=== PATIENT | female | born 1935 | race Caucasian/White ===

== ENCOUNTER 2021-08-07 12:47 | Outpatient (REF) | payer MEDICARE, SELFPAY ==
--- NOTE | ~2021-08-07 | CT_ITS ---
EXAMINATION: CT ABDOMEN AND PELVIS WITH CONTRAST CLINICAL INFORMATION: Right lower quadrant pain. Rule out diverticulitis. COMPARISON: None TECHNIQUE: Multidetector volumetric images were obtained from the superior aspect of the liver through the pubic symphysis following administration 85 mL of Omnipaque 350 intravenous contrast. Sagittal and coronal reformatted images were obtained on the technologist's workstation. Oral contrast: Yes This CT examination was performed using dose optimization techniques as appropriate, variously including the following: *Automated exposure control *Adjustment of mA and/or kV according to patient size (this includes techniques or standardized protocols for targeted exams where dose is matched to indication/reason for exam; i.e. extremities or head) *Use of iterative reconstruction technique DLP: 234 mGy-cm FINDINGS: LUNG BASES: There are 2 calcified peripheral or subpleural pulmonary nodules measuring 6 mm in the lingula and 5 mm in the left lower lobe.. LIVER, GALLBLADDER, AND BILIARY TREE: The liver is normal in size, shape and attenuation. There are several small calcifications in the liver. There is a 7 mm cyst in the medial segment of the left lobe of the liver. There is a gallstone in the gallbladder. The gallbladder is otherwise normal. There is no biliary duct dilatation. PANCREAS: Unremarkable. SPLEEN: There is a small calcification in the spleen. ADRENAL GLANDS: Unremarkable. KIDNEYS AND URETERS: The left kidney is smaller than the right. There are areas of left renal cortical thinning or scarring. There is a duplicated right renal collecting system. BLADDER: Unremarkable. GASTROINTESTINAL TRACT: There is diverticulosis of the colon. No evidence of diverticulitis is seen. The appendix is normal. The stomach is normal. ABDOMINAL WALL: No significant hernia is appreciated. LYMPH NODES: Normal. VASCULAR: Unremarkable. PELVIC VISCERA: The uterus appears to have been removed. No pelvic mass is seen. OSSEOUS STRUCTURES: There is degenerative changes of the spine and scoliosis. There are degenerative changes at the hip joints. CT/CT abdomen pelvis w con IMPRESSION: Diverticulosis. No evidence of diverticulitis. Gallstone. Small calcifications in the liver and spleen and small calcified left lung nodules probably related to old granulomatous disease. Small left kidney with areas of cortical thinning or scarring.
[2021-08-07] MEDS: Barium Sulfate Oral (Berry) 450 ML ORAL.SUSP 900 ML PO (15:00)
[2021-08-07] MEDS: iohexoL 350 MG/ML 100 ML INFUS..BTL 85 ML IV (15:20)
== END 2021-08-07 12:48 | disposition home or self-care (01) ==
LOC: HO.CT 12:47
PROVIDERS: PCP Internal Medicine; Visit Provider Internal Medicine
DX: R10.31 Right lower quadrant pain (principal)
CPT/HCPCS: 74177; Q9967

== ENCOUNTER 2021-10-02 10:34 | Outpatient (REF) | payer MEDICARE, SELFPAY ==
--- NOTE | ~2021-10-02 | CT_ITS ---
EXAMINATION: CT CHEST WITH CONTRAST CLINICAL INFORMATION: Abnormal findings of the lung. COMPARISON: Abdominal CT 08/07/2021. TECHNIQUE: Multidetector volumetric CT imaging of the chest was obtained after the administration of 65 mL of Omnipaque 350 intravenous contrast without immediate adverse reactions. Axial MIP volume rendering provided. Sagittal and coronal reformatted images were obtained. This CT examination was performed using dose optimization techniques as appropriate, variously including the following: *Automated exposure control *Adjustment of mA and/or kV according to patient size (this includes techniques or standardized protocols for targeted exams where dose is matched to indication/reason for exam; i.e. extremities or head) *Use of iterative reconstruction technique DLP: 85 mGy-cm FINDINGS: ENTRY LEVEL MECHANICAL ENGINEER: Tortuous aorta. LUNGS: The central airways are patent. Calcified and noncalcified pleural plaques are identified. This corresponds with the calcified pulmonary nodules seen on prior abdominal CT. No suspicious parenchymal nodules. No pleural effusion. No pneumothorax. MEDIASTINUM: Normal heart size. No pericardial effusion. No mediastinal lymphadenopathy. AXILLA: No lymphadenopathy. UPPER ABDOMEN: Distended gallbladder with stone in the fundus. Splenic calcification. OSSEOUS STRUCTURES: No acute or suspicious osseous abnormality. Degenerative changes throughout the spine. Moderate compression deformity involving the T4 vertebral body, appearing chronic. 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 This corresponds to the calcified nodule seen on previous abdominal CT. No suspicious parenchymal nodules.
[2021-10-02] MEDS: iohexoL 350 MG/ML 100 ML INFUS..BTL IV (11:55)
== END 2021-10-02 10:35 | disposition home or self-care (01) ==
LOC: HO.CT 10:34
PROVIDERS: Visit Provider Internal Medicine
DX: R91.8 Other nonspecific abnormal finding of lung field (principal)
CPT/HCPCS: 71260; Q9967

== ENCOUNTER 2021-10-07 10:07 | Outpatient (REF) | payer MEDICARE, SELFPAY ==
--- NOTE | ~2021-10-07 | MR_ITS ---
EXAMINATION: MR LUMBAR SPINE WITHOUT CONTRAST CLINICAL INFORMATION: 85-year-old with lumbar radiculopathy of more than 6 weeks duration. COMPARISON: 09/14/2012 MRI. TECHNIQUE: MRI of the lumbar spine was obtained using routine sequences without contrast. FINDINGS: CORONAL ALIGNMENT: Mild upper lumbar dextrocurvature noted with slight [id number] lateral listhesis at L3-L4, more prominent on current exam with partially imaged lower thoracic levocurvature on current study. SAGITTAL ALIGNMENT: 3 mm of grade 1 degenerative spondylolisthesis noted at L4-L5 and L3-L4 slightly progressed from previous study. Trace retrolisthesis at L2-L3 is a new finding. LUMBOSACRAL JUNCTION: Normal. VERTEBRAL BODIES: There is slight chronic loss of height of the posterior aspect of the L3 vertebral body which has developed since previous exam. Remaining vertebral body heights are well maintained stable in appearance. DISC SPACES AND ENDPLATES: Severe disc space height loss, disc desiccation and Schmorl's nodes at L5-S1 is stable. Moderate spondylosis at this level similar to previous exam. Tnnj-[id number] disc space height loss at L4-L5 minimally progressed with intradiscal degenerative signal changes similar to previous study. Mild spondylosis at this level is similar. Severe disc space height loss at L3-L4 with Schmorl's nodes has progressed from previous study with progression of intradiscal degenerative signal changes, Schmorl's nodes and spondylosis. Severe disc space height loss asymmetric to the left at L2-L3 has developed since previous exam, with Schmorl's nodes, intradiscal degenerative signal changes and spondylosis. SPINAL CANAL: Mildly prominent epidural fat in the mid to lower lumbar canal is more apparent on current study. BONE MARROW: Multilevel degenerative endplate changes between L2-L3 and L5-S1 inclusive progressed from previous exam, now with type I marrow signal changes at these levels. CONUS MEDULLARIS: Terminates at L1. Morphology and signal is normal. INTRADURAL NERVE ROOTS: Crowding of the intradural nerve roots at L3-L4, L4-L5 and L5-S1 progressed from previous exam, consistent with progression of spinal stenosis. L5-S1: Concentric disc osteophyte complex consisting of disc bulge and endplate spurring again noted. Ligamentum flavum thickening is progressed from previous exam with stable moderate bilateral facet arthrosis. Small central disc herniation has developed at this level since previous exam. Flattening of the dural sac centrally is progressed and flattening of the dorsal dural sac has also progressed. Moderate to severe central spinal canal stenosis is noted. There is suspicion for a 3 mm synovial cyst along the medial aspect of the right facet joint on the current study. There is bilateral subarticular recess stenosis similar to the previous exam and there is mild lateral recess stenosis bilaterally unchanged in appearance. There is moderate to severe bilateral neural foraminal stenosis, stable on the left and progressed on the right, with encroachment on the exiting L5 nerve roots bilaterally on current study. L4-L5: Unroofing of the posterior disc margin is noted, with superimposed disc bulging progressed from previous study. There is flattening of the dural sac progressed from previous exam. Ligamentum flavum thickening has progressed and there is moderate to severe facet arthropathy, left more than right similar to prior exam. Prominent dorsal epidural fat pad on current exam. Moderate to severe central spinal canal stenosis progressed from previous exam with severe right-sided and moderate to severe left-sided subarticular recess stenosis also progressed. Mild foraminal narrowing is noted bilaterally without exiting nerve root impingement. L3-L4: [id number] progression of spondylolisthesis, with unroofing of the posterior disc margin. Superimposed disc bulging with posterolateral disc osteophyte complex bilaterally and severe bilateral facet arthropathy with marked ligamentum flavum thickening progressed from previous study. Moderate to severe spinal canal stenosis is progressed with crowding of the intradural nerve roots, with bilateral subarticular recess stenosis, right more than left progressed from previous exam and left lateral recess stenosis also progressed. Moderate bilateral neural foraminal stenosis is progressed without neural impingement. L2-L3: Disc bulging has progressed with mild flattening of the dural sac with ligamentum flavum thickening progressed from previous exam. Moderate bilateral facet arthropathy is progressed. Mild central spinal canal stenosis noted on current study is a new finding. Mild left-sided neural foraminal stenosis is noted on current study. L1-L2: No disc bulge or herniation and no significant canal or neural foraminal stenosis. Mild facet arthropathy noted. PARASPINAL/RETROPERITONEAL: There is moderate to marked generalized diffuse posterior paraspinal and psoas muscle volume loss bilaterally. Otherwise the paravertebral soft tissues appear unremarkable. MR/MR lumbar spine wo con IMPRESSION: 1. Thoracolumbar scoliotic deformity progressed from previous exam with progression of grade 1 degenerative spondylolisthesis at L3-L4 and L4-L5 and development of mild retrolisthesis at L2-L3. 2. Progression of multilevel discogenic degenerative changes between L2-L3 and L5-S1 inclusive with multilevel spondylosis as described above. There is multilevel disc bulging and disc osteophyte complexes with multilevel ligamentum flavum thickening and interspinous ligament degeneration with progression as described above. 3. Multilevel spinal canal stenosis between L3-L4 and L5-S1 inclusive, moderate to severe in degree progressed from previous study with progressive crowding of the lateral canal and central canal. 4. Multilevel bilateral neural foraminal stenosis, most apparent at L5-S1, progressed on the right. Moderate bilateral neural foraminal stenosis is progressed at L3-L4 and there is new mild left-sided neural foraminal stenosis at L2-L3.
== END 2021-10-07 10:08 | disposition home or self-care (01) ==
LOC: HO.MRI 10:07
PROVIDERS: Visit Provider Internal Medicine
DX: M54.16 Radiculopathy, lumbar region (principal)
CPT/HCPCS: 72148

== ENCOUNTER → 2023-07-21 08:59 | Outpatient (REF) | payer MEDICARE, SELFPAY ==
--- NOTE | 2023-07-21 09:02 | CA_ITS ---
Transthoracic Echocardiogram Patient (Last, First, Middle): Susie Escobedo A Gender: Female Date of : 1935 Age: 87 Procedure Date: 07/21/2023 Procedure Type: Transthoracic Echocardiogram Location: OP Height: 149.86 cm Weight: 45.36 kg BSA: 1.37 m2 Heart Rate: bpm BP: 140 / 60 mmHg Ore Feeder: TO Referring MD: Hakan Dewitt MD Symptoms: R06.09 BENITEZ I10 HTN Study Quality: Fair ECG Rhythm: Sinus Conclusions: - The left ventricular systolic function is normal. The calculated ejection fraction is 66% by biplane method. - No obvious valvular pathology seen on this study. Findings Left Ventricle Normal left ventricular cavity size. There is normal left ventricular wall thickness. The left ventricular systolic function is normal. The calculated ejection fraction is 66% by biplane method. There is no evidence of regional wall motion abnormalities. Diastolic function is normal for age. Right Ventricle Normal right ventricular cavity size and systolic function. Atria Both atria are normal in size. Aortic Valve There is a normal trileaflet aortic valve. There is no aortic valve stenosis. There is trace (trivial) aortic valve regurgitation. Mitral Valve The mitral valve appears normal. There is trace mitral valve regurgitation. There is no mitral valve stenosis. Pulmonic Valve The pulmonic valve is likely normal. Tricuspid Valve Normal tricuspid valve structure. There is mild tricuspid valve regurgitation. There is no evidence of pulmonary hypertension. Great Vessels The asc aorta is normal in size. Venous The inferior vena cava is normal in size and collapses less than 50% with inspiration. Pericardium/Pleural There is no evidence of pericardial effusion. Prior Study Comparison No prior study available for comparison. Recommendations, Care & Conclusions No obvious valvular pathology seen on this study. Measurements 2D Linear Measurements IVSd: 0.97 0.6-0.9/0.6-1.0 cm LVIDd: 4.15 3.9-5.3/4.2-5.9 cm LVIDd Index: 3.03 2.4-3.2/2.2-3.1 cm/m2 LVIDs: 2.68 2.0-3.6 cm LVPWd: 0.75 0.7-1.1 cm LA Diam: 2.90 2.7-3.8/3.0-4.0 cm LAIDs Index: 2.12 1.5-2.3 cm/m2 LV Mass: 135.59 67-162/88-224 g LV Mass Index: 98.97 43-95/49-115 g/m2 LVOT Diam: 1.90 3.0+(-)1.3 cm 2D Systolic Function EF 4C: 65.80 >55% EF 2C: 66.90 >55% EF BiP: 66.10 >55% Mitral Valve MV Pk E: 0.61 MV PK A: 0.90 MV Decel Time: 276.00 E/A: 0.70 E'Lateral: 8.49 E'Medial: 4.68 E/E' Med: 13.00 E/E' Lat: 7.20 PHT: 81.00 MVA PHT: 2.72 Decel [place]: 2.21 Aortic Valve AoV Pk Scott: 1.09 AoV Mn Scott: 0.71 AoV VTI: 0.23 AoV Pk Grad: 5.00 Aov Mn Grad: 2.00 SHAVONNE Cont.VTI: 2.40 LVOT LVOT Pk Scott: 0.80 LVOT Mn Scott: 0.51 LVOT VTI: 0.19 LVOT Pk Grad: 3.00 LVOT Mn Grad: 1.00 LVOT Diam: 1.90 LVOT Area: 2.84 Diastolic Function MV Pk E: 0.61 MV Pk A: 0.90 E/A: 0.70 E'Medial: 4.68 E/E' Med: 13.00 E' Laterial: 8.49 E/E' Lat: 7.20 Right Ventricle TAPSE (mm): 21.90 TVS' Scott: 10.70 Tricuspid Valve TR Pk Scott: 2.23 TR Pk Grad: 20.00 RA Press: 3.00 RVSP: 23.00 Great Vessels Aorta Sinus of Valsalva: 2.73 2.0-3.5 cm Ao Asc: 2.90 2.1-3.4 cm Updated in Other Vendor System with Status of Final Gerber Lester MD electronically signed on 07/22/2023 5:16:49 PM with status of Final
== END ==
LOC: HO.CARD 08:59
PROVIDERS: Visit Provider Internal Medicine
DX: R06.09 Other forms of dyspnea (principal); I10 Essential (primary) hypertension
CPT/HCPCS: 93306

== ENCOUNTER → 2023-07-21 09:02 | Outpatient (BNV) | payer MEDICARE, SELFPAY | PROVIDERS: Visit Provider Internal Medicine | DX: R06.09 Other forms of dyspnea (principal); I10 Essential (primary) hypertension | CPT/HCPCS: 93306 ==

== ENCOUNTER 2023-09-17 13:30 | Outpatient (REF) | payer MEDICARE, SELFPAY ==
--- NOTE | ~2023-09-17 | XR_ITS ---
EXAMINATION: XR SHOULDER, RIGHT CLINICAL INFORMATION: Chronic right shoulder pain. COMPARISON: None available. TECHNIQUE: AP neutral, Grashey and scapula Y views of the right shoulder are submitted. FINDINGS: Bony alignment and mineralization are normal. The glenohumeral joint is intact. The acromioclavicular interval is widened to 9 mm, with slight offset. The coracoclavicular interval is normal. There is narrowing of the rotator cuff interval, and there is calcific tendinitis of the right rotator cuff insertion. No fracture or dislocation is seen. There is no foreign body. No right pneumothorax is seen. XR/XR shoulder RT min 2V IMPRESSION: 1. There is a mild right acromioclavicular separation injury. 2. 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
== END 2023-09-17 13:31 | disposition home or self-care (01) ==
LOC: HO.HMGCX 13:30
PROVIDERS: PCP Internal Medicine; Visit Provider Internal Medicine
DX: G89.29 Other chronic pain (principal); M25.511 Pain in right shoulder
CPT/HCPCS: 73030

== ENCOUNTER 2024-01-08 12:17 | Outpatient (AMB) | payer MEDICARE, SELFPAY ==
--- NOTE | 2024-01-08 14:07 | MHC.PC.OV ---
Intake Visit Reasons: EST/right shoulder pain (lobby) Intake Note: Pt is here today c/o Rt shoulder pain Allergies penicillin V Allergy (Unknown, Verified 12/12/19 00:00) No Known Allergies Allergy (Unverified 08/15/20 14:34) Coding
[2024-01-08 14:09] VITALS: BP 142/52; PULSE 65; TEMP 36.6; O2SAT 99; BMI 22.3
--- NOTE | 2024-01-08 14:11 | MHC.OFFWIV ---
Intake Vital Signs 01/08/24 14:09 Height 4 ft 9 in Weight 103 lb BMI 22.3 BP 142/52 H Blood Pressure Location Lt brachial Position Sitting Pulse 65 Pulse Source Pulse Oximeter Temp 97.8 F Temp Source Oral Pulse Oximetry (%) 99 Oxygen Delivery Method Room Air Intake Visit Reasons: EST/right shoulder pain (lobby) Intake Note: Pt is here today c/o Rt shoulder pain due to hitting it against the door at home last night Patient Tobacco Use Status: Never used Tobacco Allergies penicillin V Adverse Reaction (Unknown, Verified 01/08/24 15:59) Hives HPI EST/right shoulder pain (lobby) HPI Details Patient is an 88-year-old female comes to the walk-in with her daughter complaining of severe right shoulder pain since she struck it on a door frame yesterday. She reports a history of an AC joint separation, as well as persistent right shoulder pain for which she got an x-ray for last fall. She states that she did not get the results of the x-ray, and has had issues with the shoulder ever since. She reports that since this new injury however, she has been getting numbness and tingling down the right arm, starting from the upper front shoulder area. She reports being unable to use the arm due to the pain. Reviewed past medical history with the patient [facility] Social History Patient Tobacco Use Status: Never used Tobacco Advance Directives: No Advance Directives Information Provided: No Review of Systems Const All systems reviewed & are unremarkable except as noted in HPI and below Physical Exam Vital Signs: Last Vital Signs Temp 97.8 F 01/08/24 14:09 Pulse 65 01/08/24 14:09 BP 142/52 H 01/08/24 14:09 Pulse Ox 99 01/08/24 14:09 Oxygen Delivery Method Room Air 01/08/24 14:09 BMI result Body Mass Index 22.3 Const General: cooperative, alert, awake, Physically active and well groomed; No diaphoretic, ill appearing, intoxicated appearing or poor hygiene Nutritional Appearance: average body habitus Limitations: no limitations Resp Effort & Inspection: normal respiratory effort Cardio Rate: regular rate Skin Other: Good color, warm and dry Extrem Other: Patient's shoulders are asymmetrical, with the right shoulder more inferior than the left. It also protrudes more anteriorly and looks deformed in nature due to this. Patient holds right upper arm immobilized against her chest wall, and is exquisitely tender to palpation to the anterior joint line, as well as axillary area, radiating into the proximal to mid humerus anteriorly. She does not tolerate range of motion, either passively or actively. She is neurovascularly intact distally. Right upper extremity: normal capillary refill and no joint enlargement; ROM limited, no cyanosis and no edema Psych Appearance: grossly normal Mental Status: mental status grossly normal Speech and movement: Normal speech and movement present Affect: normal affect Attitude: cooperative Thought process: Normal thought process present Insight: Good insight present (Psych) Judgement: Good judgement present (Psych) Results Reviewed Results Reviewed: Reviewed wet read of Plain film x-ray of the right shoulder- shows no obvious fracture or dislocation that would account for the severity of patient's pain. Assessment & Plan Assessment & Plan (1) Acute pain of right shoulder: Code(s): M25.511 - Pain in right shoulder Plan: Patient with acute on chronic right shoulder pain, with current pain level appearing severe in nature, as she can not tolerate even the slightest touch to the anterior right shoulder, or any movement of the arm. Her right shoulder is clearly asymmetrical from her left, which I am told is baseline for her by the daughter, however I can not completely exclude a mild subluxation or an occult fracture. She might have torn her rotator cuff, however complete exam is difficult due to severity of her pain and inability to tolerate moving the shoulder at all. She holds her right arm immobilized by her side, and a soft jayme sling is not enough to immobilize it for her. I advised that she consider going to [facility] for further evaluation, and she was amenable to this. Expect was called in Orders: Orders XR shoulder RT min 2V 01/08/24 M25.511 - Pain in right shoulder Coding Level of Care Code Est Pt Level 4 (94711) Diagnoses Acute pain of right shoulder M25.511
== END 2024-01-08 15:37 | disposition home or self-care (01) ==
PROVIDERS: PCP Internal Medicine; Visit Provider Physician Assistant Medical
DX: M25.511 Pain in right shoulder (principal)
CPT/HCPCS: 99214

== ENCOUNTER 2024-01-08 14:36 | Outpatient (REF) | payer MEDICARE, SELFPAY ==
--- NOTE | ~2024-01-08 | XR_ITS ---
EXAMINATION: XR SHOULDER, RIGHT CLINICAL INFORMATION: Right shoulder injury. Decreased range of motion. COMPARISON: Right shoulder x-rays of 09/17/2023 TECHNIQUE: AP external rotation, Grashey, scapular Y views of the right shoulder. FINDINGS: Minimal joint alignment is maintained. Note is again made of absence of the lateral end of the right clavicle which is likely postsurgical, recommend clinical correlation. No evidence of acute fracture or dislocation. Visualized thorax is unremarkable. Faint amorphous calcifications are noted along the superior and lateral aspect of the humeral head likely representing changes of calcific tendinitis. No significant degenerative changes are noted at the glenohumeral articulation. XR/XR shoulder RT min 2V IMPRESSION: No evidence of acute fracture or dislocation in the right shoulder. Findings suggestive of calcific tendinitis in the right shoulder.
== END 2024-01-08 14:37 | disposition home or self-care (01) ==
LOC: HO.HMGCX 14:36
PROVIDERS: PCP Internal Medicine; Visit Provider Physician Assistant Medical
DX: Z13.89 Encounter for screening for other disorder (principal)
CPT/HCPCS: 73030

== ENCOUNTER 2024-01-08 15:55 | Emergency (ER) | payer MEDICARE, SELFPAY ==
--- NOTE | ~2024-01-08 | CT_ITS ---
EXAMINATION: CT SHOULDER WITHOUT CONTRAST, RIGHT CLINICAL INFORMATION: Injury severe pain anteriorly COMPARISON: X-ray the right shoulder performed same day. X-ray the right shouldero August 2023 TECHNIQUE: CT scan of the right shoulder was performed reconstruction imaging performed at the acquisition workstation This CT examination was performed using dose optimization techniques as appropriate, variously including the following: *Automated exposure control *Adjustment of mA and/or kV according to patient size (this includes techniques or standardized protocols for targeted exams where dose is matched to indication/reason for exam; i.e. extremities or head) *Use of iterative reconstruction technique DLP: 229 mGy-cm FINDINGS: There is no fracture. There is chondrocalcinosis. There is scattered calcification of the supraspinatus and infraspinatus tendons. There is a small ossification abutting the posterior superior glenoid likely reflecting ossification of the capsule perhaps related to old trauma. There are postsurgical changes of the coracoacromial arch likely related to acromioplasty and distal clavicle resection. There is an eccentric lucency/defect along the anterior superior aspect of the head tuberosity junction perhaps reflecting old impaction fracture or enthesopathic cystic change. This is unchanged compared with the prior x-ray dated August 2023. Slight soft tissue prominence in the region subacromial subdeltoid bursa could reflect a bursitis. Additional findings: The partially visualized right lung is clear. CT/CT shoulder RT wo IV con IMPRESSION: 1. No acute fracture or acute abnormality. Probable old impaction fracture or enthesopathic cystic change along the anterior superior aspect of the head tuberosity junction. This is unchanged compared with the prior x-ray dated August 2023. 2. Chondrocalcinosis. 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 3. Postsurgical changes of the coracoacromial arch 4. Possible bursitis. 5.
[2024-01-08 15:56] VITALS: BP 187/67; PULSE 67; RESP 18; TEMP 37; O2SAT 100; BMI 15.7
--- NOTE | 2024-01-08 15:57 | ED_ITS ---
HPI - Extremity Injury (Upper) General Chief Complaint: Extremity Injury, Upper Stated Complaint: R arm injury Time Seen by Provider: 01/08/24 16:00 Source: patient and family Mode of arrival: ambulatory Limitations: no limitations History of Present Illness HPI narrative: Patient is an 88-year-old female who presents emergency department for evaluation of right shoulder pain. Reports bumping into a door frame and having severe pain to the arm with any movement. Reports history of AC joint separation. States she was referred from urgent care for further evaluation due to degree of pain. Intermittent numbness to the arm.. Denies use of anticoagulants. Related Data Home Medications Medication Instructions Recorded Confirmed amlodipine 5 mg tablet 5 mg PO BID 01/08/24 ascorbic acid (vitamin C) 500 mg 500 mg PO DAILY 01/08/24 tablet biotin 5,000 mcg chewable tablet mcg PO 01/08/24 dsbhejl-lpsbfktyf-oncz tablet tab PO 01/08/24 pantoprazole 40 mg tablet,delayed 40 mg PO DAILY 01/08/24 release valsartan 160 1 tab PO DAILY 01/08/24 mg-hydrochlorothiazide 12.5 mg tablet vitamin B complex (B 1 tab PO DAILY 01/08/24 Complex-Vitamin B12 tablet) vitamin E (dl, acetate) 450 mg 450 mg PO QDAY 01/08/24 (1,000 unit) capsule Previous Rx's Medication Instructions Recorded tramadol 50 mg tablet 50 mg PO Q8H PRN pain #20 tabs 01/08/24 Allergies Allergy/AdvReac Type Severity Reaction Status Date / Time penicillin V AdvReac Unknown Hives Verified 01/08/24 15:59 Review of Systems Review of Systems: Yes all other systems are reviewed and are negative REPLACED BY [facility] Past Medical History Attestation statement: The following information was validated with the patient. Source: old records reviewed Social History Social History Patient Tobacco Use Status: Never used Tobacco Advance Directives: No Advance Directives Information Provided: No Physical Exam Vital Signs: Vital Signs: Last Vital Signs Temp 98.6 F 01/08/24 15:56 Pulse 67 01/08/24 15:56 Resp 18 01/08/24 15:56 BP 187/67 H 01/08/24 15:56 Pulse Ox 100 01/08/24 15:56 O2 Del Method Room Air 01/08/24 15:56 BMI result Body Mass Index 15.7 Appearance: Alert.?Oriented to person, place and time. No acute distress.?Normal affect. Eyes: Pupils equal, round and reactive to light.? ENT: Pharynx normal.?? Neck: Normal inspection.? Neck supple.?? CVS: Heart sounds normal. Normal heart rate and rhythm.? Pulses normal.?? Respiratory: No respiratory distress.? Lung sounds clear to auscultation bilaterally?? Skin: Skin warm and dry.? Normal skin color.? Extremities: Significant right anterior shoulder tenderness upon palpation, mid axillary region radiating to proximal humerus, shoulder height notably lower on right left, pain with even subtle movement of the shoulder. Neuro: Moves all extremities spontaneously. Sensation intact bilaterally. No focal neuro deficits. Ambulates with normal steady gait. Medications Administered Discontinued Medications Generic Name Dose Route Start Last Admin Trade Name Freq PRN Reason Stop Dose Admin Tramadol HCl 50 mg 01/08/24 16:16 01/08/24 16:53 Tramadol Hcl 50 Mg Tablet PO 01/08/24 16:17 50 mg ONCE ONE Administration Medical Decision Making Medical Decision Making MDM Narrative: Patient is an 88-year-old female who presents emergency department for evaluation of traumatic right upper extremity pain after bumping into a door jam. Reviewed XR imaging obtained from outpatient at urgent Care, no evidence of acute fracture dislocation to the right shoulder, findings concerning for calcific tendinitis along the lateral aspect of the humeral head. Due to degree of pain, patient received tramadol with good effect, CT of the shoulder reveals no evidence of acute fracture abnormality, probable old impaction fracture along the anterior superior aspect of the head tuberosity junction but this was seen on prior x-ray, evidence of calcific tendinosis, and possible bursitis. Send prescription for tramadol pharmacy, mass that was reviewed, conservative tr eatment, Stable for discharge and outpatient follow-up with orthopedics/PCP. Differential Diagnosis Differential Diagnoses: The differential diagnosis associated with the presentation includes (Fracture, dislocation, contusion, tendinitis) Independent Interpretation I performed an independent interpretation of an: CT Scan (No acute fracture) Radiology Impression Discussion of test interpretation with radiology: I have reviewed the radiol ogist's reading. Radiologist Impression: XR/XR shoulder RT min 2V IMPRESSION: No evidence of acute fracture or dislocation in the right shoulder. Findings suggestive of calcific tendinitis in the right shoulder. CT/CT shoulder RT wo IV con IMPRESSION: 1. No acute fracture or acute abnormality. Probable old impaction fracture or enthesopathic cystic change along the anterior superior aspect of the head tuberosity junction. This is unchanged compared with the prior x-ray dated August 2023. 2. Chondrocalcinosis. 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 3. Postsurgical changes of the coracoacromial arch 4. Possible bursitis. Independent Historian Clinical information obtained from an independent historian. History obtained from or confirmed by: Other (Daughter who confirms history) External Record Review External record reviewed: Prior outpatient radiology and Other ([facility]) Prescription Management I considered prescription management with: Pain Medication Critical Care Time Critical Care Time Critical Care Time: Yes Total Critical Care Time: 35 Attestation: I personally attest to this critical care time spent taking care of the patient exclusive of all other billable procedures was approximately 35 minutes including initial evaluation of patient, ordering tests, x-ray interpretation, CT interpretation, documentation, re-evaluation. Discharge Plan Discharge Clinical Impression: Contusion of right shoulder, Bursitis Patient Disposition: Home, Self-Care Instructions: Shoulder Bursitis (ED), R.I.C.E. Treatment (ED) Additional Instructions: You can take Tylenol 500 mg, 2 tablets (1,000mg) every 4-6 hours as needed for pain, but not to exceed 3 doses daily (3,000mg). I have sent a prescription for tramadol to the pharmacy, this medication may be used for pain that is unrelieved with Tylenol conservative treatment. This medication may make you drowsy. Contact Orthopedics when their office opens Wednesday morning to arrange for a follow-up visit. Return back to emergency department any new or worsening symptoms or concerns such as redness, swelling, severe worsening pain, fevers/ ? Prescriptions: New tramadol 50 mg tablet 50 mg PO Q8H PRN (Reason: pain) Qty: 20 0RF No Action valsartan-hydrochlorothiazide 160-12.5 mg tablet 1 tab PO DAILY pantoprazole 40 mg tablet,delayed release (DR/EC) 40 mg PO DAILY amlodipine 5 mg tablet 5 mg PO BID seavucq-frxvixnek-dvsh Tablet PO vitamin B complex [B Complex-Vitamin B12] Tablet 1 tab PO DAILY biotin 5,000 mcg tablet,chewable PO ascorbic acid (vitamin C) 500 mg tablet 500 mg PO DAILY vitamin E (dl, acetate) 450 mg (1,000 unit) capsule 450 mg PO QDAY Referrals: Hakan Dewitt MD [Primary Care Provider] - Alix Granado PA-C [Physician Videotape Operator] - Interventions: ED Discharge Assessment Last Done: 01/08/24 18:09 Discharge Date/Time: 01/08/24 18:10
[2024-01-08] MEDS: traMADoL HCL 50 MG TABLET PO (16:53)
== END 2024-01-08 18:10 | disposition home or self-care (01) ==
PROVIDERS: Emergency Provider Emergency Medicine; PCP Internal Medicine
DX: S40.011A Contusion of right shoulder, initial encounter (principal); W22.09XA Striking against other stationary object, initial encounter; M75.51 Bursitis of right shoulder; Y93.89 Activity, other specified; Y92.9 Unspecified place or not applicable; Y99.9 Unspecified external cause status
CPT/HCPCS: 73030; 73200; 99283; 99284

== ENCOUNTER 2024-02-04 07:47 | Outpatient (AMB) | payer MEDICARE, SELFPAY ==
--- NOTE | 2024-02-04 07:56 | MHC.OFFVIS ---
Intake Intake Visit Reasons: New Pt - right shoulder pain, DOI 01/07/24 Intake Note: Susie is a 88 year old right hand dominant female who presents today as a new patient for her right shoulder pain, DOI 01/07/24. Patient reports hitting her right shoulder against the door at home. Currently is having dull pain on top of the shoulder. Patient has been icing her shoulder which gives her mild relief. Pain is worse in the morning and it gets stiff. She also states that her pain radiates to her neck. Allergies penicillin V Adverse Reaction (Unknown, Verified 02/04/24 08:03) Hives HPI New Pt - right shoulder pain, DOI 01/07/24 HPI Details 88-year-old right hand dominant female who presents in the office today, as a new patient, for an evaluation of right shoulder pain. The patient [facility] 01[facility]2024 status post hitting her right shoulder on the door the night before (01/07/2024). She was referred to the emergency department. The patient presented to the ED on 01/08/2024. X-rays and CT of the right shoulder were obtained. She was given a tramadol injection and a prescription for Tramadol 50 mg PO Q8H PRN was sent to the pharmacy. While in the office today the patient reports hitting her right shoulder against a door at home. She reports having a dull pain on the top of her shoulder. She claims to be icing the shoulder with mild relief. She states the pain is worse in the morning and has stiffness. She also reports the pain radiates to her neck. Patient has a history of AC joint separation in Fall 2022. [facility] Social History (Updated 02/04/24 @ 08:03 by Isreal Maynard) Alcohol intake: never Patient Tobacco Use Status: Never used Tobacco Review of Systems Const All systems reviewed & are unremarkable except as noted in HPI and below Physical Exam Const General: cooperative and no acute distress Orientation/consciousness: patient oriented x3 Resp Effort & Inspection: normal respiratory effort and able to speak in complete sentences Cardio Peripheral pulses: Peripheral pulses 2+ throughout Skin General skin exam: no rashes or lesions noted Neuro General: patient oriented x3 Extrem Other: Right shoulder: Forward flexion lacking about 20 degrees. Abduction to 90 degrees. External rotation to neutral. Pain with cross-body reach. 3/5 strength with empty can. Negative drop arm. NVI. Assessment & Plan Assessment & Plan (1) Calcific tendonitis of right shoulder: Code(s): M75.31 - Calcific tendinitis of right shoulder (2) Arthritis of right shoulder region: Comment: Glenohumeral joint Code(s): M19.011 - Primary osteoarthritis, right shoulder Plan Ms. Escobedo is an 88-year-old right hand dominant female who presents in the office today, as a new patient, for an evaluation of right shoulder pain. The patient presented to [facility] on 01/08/2024 status post hitting her right shoulder on the door the night before (01/07/2024). She was referred to the emergency department. The patient presented to the ED on 01/08/2024. X-rays and CT of the right shoulder were obtained. She was given a tramadol injection and a prescription for Tramadol 50 mg PO Q8H PRN was sent to the pharmacy. While in the office today the patient reports hitting her right shoulder against a door at home. She reports having a dull pain on the top of her shoulder. She claims to be icing the shoulder with mild relief. She states the pain is worse in the morning and has stiffness. She also reports the pain radiates to her neck. Patient has a history of AC joint separation in Fall 2022. I discussed the role of cortisone injections with the patient while in the office today. However, she regularly gets cortisone injection with her Rheumatology provider. I spoke with the patient about continuing to get the injections with this provider due to her already feeling comfortable with receiving the injection there. I did let the patient know that should she wish to have the injection in our office we would be more than happy to help her obtain those here. I also discussed with the patient that after she has obtained the injection with her Rheumatology provider should she continue to have pain I would like to referred her for glenohumeral joint injections to be done at the hospital. She will call the office should she decided to move forward with cortisone injections here or should she not have relief and wish to move forward with glenohumeral joint injections. Follow up will be PRN, or sooner if needed. X-rays of the right shoulder, obtained on 01/08/2024, revealed: No evidence of acute fracture or dislocation in the right shoulder. Findings suggestive of calcific tendinitis in the right shoulder. CT of the right shoulder, obtained on 01/08/2024, revealed: 1. No acute fracture or acute abnormality. Probable old impaction fracture or enthesopathic cystic change along the anterior superior aspect of the head tuberosity junction. This is unchanged compared with the prior x-ray dated August 2023. 2. Chondrocalcinosis. 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 3. Postsurgical changes of the coracoacromial arch 4. Possible bursitis. Patient Instructions: Scribed by Stephanie Chung medical technologist generalist, for Alix Granado PA-C on 02/04/2024 at 7:48 am, EST. Coding Level of Care Code New Pt Level 4 (42654) Diagnoses Calcific tendonitis of right shoulder M75.31 Arthritis of right shoulder region M19.011
== END 2024-02-04 08:19 | disposition home or self-care (01) ==
PROVIDERS: PCP Internal Medicine; Visit Provider Physician Assistant
DX: M75.31 Calcific tendinitis of right shoulder (principal); M19.011 Primary osteoarthritis, right shoulder
CPT/HCPCS: 99204

== ENCOUNTER → 2024-02-04 07:47 | Outpatient (BNVA) | payer MEDICARE, SELFPAY | PROVIDERS: PCP Internal Medicine; Visit Provider Physician Assistant | DX: M19.011 Primary osteoarthritis, right shoulder (principal); M75.31 Calcific tendinitis of right shoulder | CPT/HCPCS: 99202 ==

== ENCOUNTER 2024-03-07 09:54 | Outpatient (AMB) | payer MEDICARE, SELFPAY ==
--- NOTE | 2024-03-07 10:07 | A.OFFVIS_ITS ---
Intake Intake Visit Reasons: OV-RT shoulder inj-interested in getting injection Intake Note: Susie is a 88 year old right hand dominant female who presents today as a new patient for her right shoulder pain, DOI 01/07/24. Patient reports her last injections gave her relief and she would like to repeat. Allergies penicillin V Adverse Reaction (Unknown, Verified 03/07/24 10:17) Hives HPI OV-RT shoulder inj-interested in getting injection HPI Details 88-year-old female who presents in the [facility] today for a follow up of right shoulder pain. I last saw the patient in the office on 02/04/2024, at that time cortisone injections were discussed and the patient wished to defer and have them done with her RA provider. I also discussed with the patient that after she has obtained the injection with her Rheumatology provider should she continue to have pain I would like to referred her for glenohumeral joint injections to be done at the hospital. [facility] Social History (Updated 02/04/24 @ 08:03 by Isreal Maynard) Alcohol intake: never Patient Tobacco Use Status: Never used Tobacco Review of Systems Const All systems reviewed & are unremarkable except as noted in HPI and below Physical Exam Const General: cooperative, healthy appearing and no acute distress Resp Effort & Inspection: normal respiratory effort and able to speak in complete sentences Cardio Rate: regular rate Peripheral pulses: Peripheral pulses 2+ throughout GI Palpation (GI): Soft to palpation Skin Lesions: no lesions Rashes: no rashes Extrem Other: Right shoulder: Forward flexion lacking about 20 degrees. Abduction to 90 degrees. External rotation to neutral. Pain with cross-body reach. 3/5 strength with empty can. Negative drop arm. NVI. Office Procedures Joint Injection/Drain Joint Injection/Drain Primary Site: right shoulder Prep: site was prepped using aseptic technique, ethochloride spray was applied and injection warnings given Injected: 80 mg of, DepoMedrol, with 8 mL of (2% plain lido ) and in the subcromial space Approach Used: posterolateral Procedure: The patient tolerated the procedure well, but had some pain with the injection and there was some relief with the local anesthesia Coding 43409 - Large joint Procedure code (CPT) selection complete Assessment & Plan Assessment & Plan (1) Calcific tendonitis of right shoulder: Code(s): M75.31 - Calcific tendinitis of right shoulder (2) Arthritis of right shoulder region: Comment: Glenohumeral joint Code(s): M19.011 - Primary osteoarthritis, right shoulder Plan Ms. Escobedo is a 88-year-old female who presents in the office today for a follow up of right shoulder pain. I last saw the patient in the office on 02/04/2024, at that time cortisone injections were discussed and the patient wished to defer and have them done with her RA provider. I also discussed with the patient that after she has obtained the injection with her Rheumatology provider should she continue to have pain I would like to referred her for glenohumeral joint injections to be done at the hospital. The patient was offered a cortisone injection in the right shoulder with 80 mg of DepoMedrol. The patient was explained the risk, benefits, and alternatives to receiving this injection. After receiving consent for the injection, the patient had the procedure done while in office today. The patient tolerated the procedure well with no complications. Follow up will be PRN, or sooner if needed. Patient Instructions: Scribed by Stephanie Chung medical numerical control operator, for Alix Granado PA-C on 03/07/2024 at 10:00 am, EST. Coding Level of Care Code Est Pt Level 3 (81571) Diagnoses Calcific tendonitis of right shoulder M75.31 Arthritis of right shoulder region M19.011 CPT Codes Coding - 29691 Large joint: 26885 - Large joint ([id number])
== END 2024-03-07 10:17 | disposition home or self-care (01) ==
PROVIDERS: PCP Internal Medicine; Visit Provider Physician Assistant
DX: M75.31 Calcific tendinitis of right shoulder (principal); M19.011 Primary osteoarthritis, right shoulder
CPT/HCPCS: 20610; 99213

== ENCOUNTER → 2024-03-07 09:54 | Outpatient (BNVA) | payer MEDICARE, SELFPAY | PROVIDERS: PCP Internal Medicine; Visit Provider Physician Assistant | DX: M75.31 Calcific tendinitis of right shoulder (principal); M19.011 Primary osteoarthritis, right shoulder | CPT/HCPCS: 20610; 99212; J1010; J1040 ==

== ENCOUNTER 2025-03-15 08:33 | Outpatient (AMB) | payer MEDICARE, SELFPAY ==
--- NOTE | 2025-03-15 08:42 | MHC.OFFVIS ---
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 States she stepped off a curve and felt back pain on Wednesday03/12/25. She is currently complaining of having a sharp stabbing pain that radiates from her lower right to her groin area. Pain is worse when walking, walking up stairs and from sit to stand position. States she takes Aleve and this has been helping. Hx of injection with [employer] [facility] 8 years ago. MRI done in 2020. Referred by Amando Granado Allergies penicillin V Adverse Reaction (Unknown, Verified 03/15/25 08:50) Hives Medication List - Last Reconciled 03/15/25 by Janna Vu MD acetaminophen 500 mg PO QID PRN amlodipine 5 mg PO BID biotin mcg PO jrxdpxk-yfpecgain-sxfp tabs PO pantoprazole 40 mg PO DAILY pramipexole mg PO tramadol 50 mg PO Q8H PRN valsartan-hydrochlorothiazide 160-12.5 mg 1 tab PO DAILY vitamin B complex (B Complex-Vitamin B12 tablet) 1 tab PO DAILY vitamin E (dl, acetate) 450 mg PO QDAY HPI Comments Details: Clarifies that she was already hurting right groin/hip area prior to incident on 03/12/25. But since then, she's been having right buttocks, waistline to posterior thigh. No new numbness. She was bit gradually developing a right-sided pain for the last year. History of vascular leg issues, leg cramps. Treatment done so far: NSAIDs - alleve prn topical Last injection with PSSP several years ago. Last lumbar MRI 2020. History of osteoporosis. 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 Patient was appropriately conversant and oriented. Good historian. MSK: No specific abnormalities found on inspection of the spine and all extremities. Most of her tenderness is in. Mildly on right GT. There is some tenderness in lumbar spinous processes as well. Lumbar ROM was full. Bilateral hip, knee and ankle ROM WNL. No ligamentous laxity or crepitance. No increased effusion. Slump sit negative. FABERE test positive right groin pain. Strength is 5/5 in all muscle groups tested. No increased tone noted. Neurological: Lower extremity strength still maintained 5/5, tested while seated. However notice depressed right knee reflex compared to left, unsure whether this is new or not. No footdrop. Negative Babinski. Negative Slater's sign. Results Reviewed Results Reviewed: I independently reviewed the results of the following: Hip x-rays done in the office today showed severe loss of joint space. No fracture seen. Await official reading. Ordering Physician: Janna Garcias Date of Service: 03/15/25 Procedure(s): XR hip RT min 2V Accession Number(s): [id number] cc: Janna Garcias~ EXAMINATION: XR HIP, RIGHT CLINICAL INFORMATION: M25.551 - Pain in right hip COMPARISON: December 12, 2019. TECHNIQUE: Two views of the right hip. FINDINGS: Sclerosis along the articular surface of the right acetabulum. Small subchondral cyst in the right femoral head. Asymmetric joint space narrowing. No acute cortical disruption or malalignment. No lytic or blastic lesions. Degenerative changes in the symphysis pubis. Spondylosis L4-5 and L5-S1. Vascular calcifications. 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 Atherosclerosis disease, peripheral. Electronically signed by: Luis Walker MD 03/15/2025 09:42 AM EDT I reviewed records from the following: Ortho saw patient for shoulder pain. Assessment & Plan Assessment & Plan (1) Acute pain: Code(s): R52 - Pain, unspecified Category: Medical (2) Chronic back pain: Code(s): M54.9 - Dorsalgia, unspecified; G89.29 - Other chronic pain Category: Medical Qualifiers: Back pain laterality: right Back pain location: low back pain Sciatica laterality: sciatica of right side Sciatica presence: with sciatica Qualified Code(s): M54.41 - Lumbago with sciatica, right side; G89.29 - Other chronic pain (3) Fall: Code(s): W19.XXXA - Unspecified fall, initial encounter Category: Medical Qualifiers: Encounter type: initial encounter Qualified Code(s): W19.XXXA - Unspecified fall, initial encounter (4) Degenerative joint disease of right hip: Code(s): M16.11 - Unilateral primary osteoarthritis, right hip Category: Medical Qualifiers: Osteoarthritis type: primary Qualified Code(s): M16.11 - Unilateral primary osteoarthritis, right hip Plan Acute on chronic right-sided hip pain. Hip x-ray shows severe loss of joint space, without acute fracture. Official reading just came in, see above. 1. For right hip pain, we could trial hip injection. If intra-articular, would refer them to pain management to be done under fluoroscopy or ultrasound. They had questions about hip replacement. If they are interested, I could referred him to Dr. Jaeger. 2. Suspect patient has history of lumbar spinal stenosis and/or disc herniation. Noted depressed reflexes in right patella. Discussed that we would need to do a lumbar MRI to further evaluate. They decided to address right hip/groin pain 1st before further investigating lumbar spine. I did send her for lumbar spine x-rays to just rule out vertebral fracture from incident 3 days ago. Images reviewed with them, scoliosis, significant disc space loss, not entirely sure if there is any vertebral fracture. Await official reading, sent for urgent read. They will go home for now. We will contact them once I get the lumbar spine x-rays. I did put in a referral for pain management due to right hip intra-articular injection. We will see if they can do it sooner than later. If they can not, we can consider right GT injection in the office. Assessment and plan discussed with patient, and patient was agreeable. All questions were answered thoroughly. Total of 45 minutes spent today including chart review, results review, history taking, physical examination, discussion of assessment and plan, and coordination of care. Janna Vu MD, RUBIN Board Certified, [place] Board [employer] and Rehabilitation (ABPMR) Board Certified, [place] Board of Electrodiagnostic Medicine (ABEM) Orders: Orders XR hip RT min 2V Today M25.551 - Pain in right hip XR lumbar spine 2-3V Today G89.29 - Other chronic pain, M54.9 - Dorsalgia, unspecified, R52 - Pain, unspecified, W19.XXXA - Unspecified fall, initial encounter Referrals Pain Management Referral M16.11 - Unilateral primary osteoarthritis, right hip Coding Level of Care Code New Pt Level 4 (96695) Diagnoses Acute pain R52 Chronic right-sided low back pain with right-sided sciatica M54.41; G89.29 Back pain laterality: right Back pain location: low back pain Sciatica laterality: sciatica of right side Sciatica presence: with sciatica Fall, initial encounter W19.XXXA Encounter type: initial encounter Primary osteoarthritis of right hip M16.11 Osteoarthritis type: primary
[2025-03-15 08:52] VITALS: BMI 21.2
--- OUTSIDE RECORDS SUMMARY | 2025-03-15 08:57 | XMS_ITS ---
Author Organization [facility] Address [address] [place] [address] Care Team Providers Care Graduate Studies Dean Name Role Phone Jayden Reyes MD Primary Care Provider Radha sullivan Active Problems Problem Noted Date Diagnosed Date Weakness 03/20/2021 Dysphagia 03/19/2021 At high risk for aspiration 07/03/2020 Esophageal achalasia 07/03/2020 Mixed hyperlipidemia 12/13/2019 Late onset Alzheimer's disea se without behavioral disturbance 12/13/2019 COPD (chronic obstructive pulmonary disease) 02/2020 Simple chronic bronchitis 02/28/2019 Moderate protein-calorie malnutrition 12/03/2018 Overview: Overview: Malnutrition Reason: malnutrition in the context of acute illess or injury Malnutrition Severity: non-severe (moderate) malnutrition Clinical Characteristics: energy intake <75% for >7 days, muscle mass loss, body fat loss Decreased Energy Intake: < 75% of estimated energy requirement for > 1 month Body Fat Loss: mild(cheeks, triceps) Muscle Mass Loss: mild(clavicles, hands, calf) Atrial fibrillation 10/20/2018 Slow transit constipation 06/15/2018 Malignant neoplasm of upper- outer quadrant of right breast in female, estrogen receptor positive 06/09/2018 Cancer Staging:Pathologic stage from 07/06/2018:Stage IA(pT1a, pN0, cM0, G1, ER+, AZ+, HER2-) - Unsigned Cataract 05/27/2018 Hypertension 05/27/2018 Benign esophageal stricture 12/28/2017 Anemia 2017 Blind left eye 2017 Depression 2017 Hearing loss 2017 Hepatitis B 2017 Hypercholesteremia 2017 Migraine 2017 Osteoarthritis 2017 Spondylosis 2017 Overview: Overview: Overview: lumbar Thrombocytopenia 2017 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 ANA CATES Current Oncology Plans No current plan information found. Past Plans No past plan information found. Radiation Treatments * No radiation treatments are documented for this patient in [facility]. Treatments may have been administered in another system. Lifetime Dose Tracking * Chemical Lifetime Dose Automatic Entry Manual Entr y Radiation 104.6 mSv 104.6 mSv 0 mSv Resolved Problems Problem Noted Date Diagnosed Date Resolved Date Metabolic encephalopathy 03/20/2021 Cellulitis 03/17/2021 03/18/2021 Cellulitis of multiple sites of lower extremity 03/17/2021 03/18/2021 Acute metabolic encephalopathy 06/11/2020 06/13/2020 COPD exacerbation 06/11/2020 07/03/2020 Acute respiratory failure with hypoxia 06/11/2020 06/13/2020 UTI (urinary tract infection) 05/06/2020 05/08/2020 Femoral neck fracture 03/24/20202019 Overview: Added automatically from request for surgery [id number] Left displaced femoral neck fracture 03/24/2020 05/08/2020 Frailty 06/16/2019 05/08/2020 Oral thrush 03/30/2019 04/26/2019 Community acquired pneumonia of left lower lobe of lung 02/07/2019 02/10/2019 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 Failed surgery on right Esophageal dysphagia 2017 020 Hyperglycemia 2017 12/12/2019 Sinus tachycardia 2017 07/20/2018 Community acquired pneumonia 12/23/2017 06/06/2018 Sepsis 12/23/2017 06/06/2018 Fracture of three ribs of left side 11/25/2017 06/13/2018 Hypoxia 11/25/2017 07/20/2018 Pleural effusion on left 11/25/2017 Aspiration into lower respiratory tract 09/24/2017 07/03/2020 Acute renal failure 09/13/2017 02/24/20 18 Abnormal electrocardiogram 09/13/2017 0 07/20/2018 GERD (gastroesophageal reflux disease) 06/06/2018 Overview: SCHATZKI RINGS, ESOPHAGEAL SPASM, S/P DILATATION WITH DR. ROMANO Chronic obstructive pulmonar y disease with acute exacerbation 02/08/2020 Overview: DR. SNIDER, PFTS--02/11, FEV1/FVC 55%, FEV1 54% Arthritis of right shoulder region 07/20/2018
--- OUTSIDE RECORDS SUMMARY | 2025-03-15 08:57 | XMS_ITS ---
Author Organization [facility] Address [address] [place] [address] Care Team Providers Care Heritage Consultant Name Role Phone Hakan Dewitt MD Primary Care Provider Unavaila celina Ramirez Ivone Unavailable [phone] Allergies No Known Allergies REASON FOR VISIT Wart(s) Medications Medication SIG (Take, Route, Frequency, Duration) Notes Start Date End Date Status Pantoprazole Sodium 20 MG 1 tablet Orall y Once a day Active Fosamax 70 MG 1 tablet 30 minutes before the first food, beverage or medicine of the day with plain water Orally Not-Taking amLODIPine Besylate 5 MG as directed Ora lly Once a day Active Valsartan-hydroCHLOROthia zide 160-12.5 MG 1 tablet Orally Once a day Active Social History Tobacco Use: Social History Observation Description Date Details (start date - stop date) Never Smoker NA - NA Tobacco Use/Smoking Question Answer Notes Are you a: nonsmoker Additional Findings: Tobacco Non-User Current no n-smoker Tobacco use other than smoking: Question Answer Notes Are you an other tobacco user? No Vital Signs Blood pressure systolic 130 mm Hg 12/07/19 25 Blood pressure diastolic 64 mm Hg 025 Height 4ft9in in 12/07/2024 Weight 94 lbs 12/07/2024 BMI 20.34 kg/m2 12/07/2024 Procedures Procedure Date Ordered Date Performed Result Body Sit e 09523-Nmdk Destruction, 1-14 12/07/2024 N/A Encounters Encounter Location Date Provider Diagnosis [facility] [address] [place] [id number] 12/07/2024 Ivone Ramirez Plantar wart B07.0 and Pain in left foot M79.672 Assessments Encounter Date Diagnosis (ICD Code) Assessment Notes Treatment Notes Treatment Clinical Notes Section Notes 12/07/2024 Plantar wart (ICD-10 - B07.0) 12/07/2024 Pain in left foot (ICD-10 - M79.672) Plan Of Treatment Pending Test Test Name Order Date [id number]-Skma Destruction, 1-14 12/07/2024 Next Appt Details Follow Up: prn, Reason: Provider Name:Ivone Ramirez , 05/10/2025 01:30:00 PM, [address] [place] [address], [phone], Procedure Notes * Category Sub-Category Detail Notes Wart Treatment Procedure Verrucae were de brided to pin-point bleeding margins with sterile 15 surgical blade, silver nitrate chemocautery applied, recomm. immune-boosting meds such as zinc, recomm. follow up with topical chemosurgical agents, Pt STILL, defers any other forms of tx (12343) Progress Notes * Susie WYNN ADOB:1935 (88 yo F)Acc No.[id number]:12/07/2024 Progress Note Patient:?Susie WYNN Provider:?Ivone Ramirez RYHarry :1935???Age:88 Y???Sex:Female D ate:12/07/2024 Address:[address] [place], [place] [id number] Pcp:Hakan Dewitt MD Subjective: * Chief Complaints: * ???Wart(s) * HPI: ???Skin problems:?Pt States PCP Visit: ?DATE?09/27/2024 * ROS:?General/Constitutional:?Nausea?denies.?Vomiting?denies.?Hunger Thirst?denies.?Loss appetite?denies.?Chills?denies.?Fatigue?denies.?Fever?denies.?Night Sweats?denies.?Unexplained weight loss?denies.?Unexplained weight gain?denies.?HEENTM:?Dentures?denies.?Dizziness?denies.?Glasses/contacts?denies.?Retinopathy?de nies.?Blurred/double vision?denies.?TMJ?denies.?Discharge/drainage?denies.?Implants?denies.?Sore throat?denies.?Dental implants?denies.?Hard of hearing ?denies.?Difficulty chewing/swallowing/speaking?denies.?Nose bleeds?denies.?Sore mouth?denies.?Respiratory:?On Oxygen?denies.?Pneumonia/pleurisy?denies.?Bronchitis?denies.?Emphysema?denies.?C oughing?denies.?Cough blood?denies.?Shortness of breath?denies.?Wheezing?denies.?Cardiovascular:?Pacemaker?denies.?MVP?denies.?WPW?denies.?CHF?denies.?Heart attack?denies.?Septal defect?denies.?Rapid beat?denies.?Chest pain ?denies.?Atrial Fib.?denies.?Murmur/Palpitations?denies.?Gastrointestinal:?Hemorrhoids?denies.?Stomach/Abdominal pain?denies.?Dark blood stool?denies.?Irritable bowel ?denies.?Constipation?denies.?Diarrhea?denies.?Hematology:?Swelling?denies.?Clots?denies.?Varicose Veins?denies.?Bruising?denies.?Bleeding problem?denies.?Genitourinary:?Blood urine?denies.?Frequent/Painfu/urination/bladder control?denies.?Kidney stones?denies.?Infection (UTI)?denies.?Nephropathy?denies.?sex trans dis (STD)?denies.?Prostate?denies.?Musculoskeletal:?Hammertoes?denies.?Bunions?denies.?Back Pain?denies.?Muscle Cramps/ Resting?denies.?Muscle cramps / walking?denies.?Generalized aches and pains?denies.?Weakness?denies.?Integ.:?Selby?denies.?Scars?denies.?Corns/calluses?denies.?Ingrown nails?denies.?Painful nails?denies.?Open Sores?denies.?Rashes?denies.?Neurologic:?Difficulty sleeping?denies.?Brain disorder?denies.?Numbness?denies.?Balance trouble?denies.?Confusion?denies.?Fainting/blackouts?denies.?Tingling?denies.?Tr emors?denies.? * Medical History:? * Surgical History:?hysterecto my 11/1989carpal tunnel surgery 12/2000rotator cuff tear repair 12/2007 * Hospitalization/Major Diagno stic Procedure:?Denies Past Hospitalization * Family History:?Mother: dece ased, stroke, poor circulation, diagnosed with Family history of arthritis.?Father: , cancer, poor circulation, diagnosed with Diabetic - NIDDM, Unspecified essential hypertension, Family history of arthritis.?Siblings: stroke, cancer, poor circulation, diagnosed with Unspecified essential hypertension.? * Social History:?Tobacco Use:?Tobacco Use/Smoking?Are you a:?nonsmoker ?Additional Findings: Tobacco Non-User?Current non-smoker ?Tobacco use other than smoking?Are you an other tobacco user??No * Medications:?TakingamLODIPin e Besylate 5 MG Tablet as directed Orally Once a day Valsartan-hydroCHLOROthiazide 160-12.5 MG Tablet 1 tablet Orally Once a day Pantoprazole Sodium 20 MG Tablet Delayed Release 1 tablet Orally Once a day Taking amLODIPine Besylate 5 MG Tablet as directed Orally Once a day Taking Valsartan-hydroCHLOROthiazide 160-12.5 MG Tablet 1 tablet Orally Once a day Taking Pantoprazole Sodium 20 MG Tablet Delayed Release 1 tablet Orally Once a day Not-Taking/PRNFosamax 70 MG Tablet 1 tablet 30 minutes before the first food, beverage or medicine of the day with plain water Orally Medication List reviewed and reconciled with the patientNot-Taking/PRN Fosamax 70 MG Tablet 1 tablet 30 minutes before the first food, beverage or medicine of the day with plain water Orally Medication List reviewed and reconciled with the patient * Allergies:?N.K.D.A.yes[Aller gies Verified] Objective: * Vitals:?Ht: 4ft9in, Wt: 94, BMI: 20.34, Shoe size: 7, BP: 130/64 mm Hg, Ht-cm: 144.78 cm, Wt-k.64 kg. * Examination: ???Dermatologic: ?VERRUCA:?Reveals two, multi-loculated , mosaically patterned, round, raised, flat-topped, petechial bleeding papule(s), with cauliflower appearance and interruption of skin lines, pain to lateral compression, and size estimated at 3mm diameter left heel, 2mm left plantar forefoot.? Assessment: * Assessment: 1.?Plantar wart - B07.0 (Radha nu)???2.?Pain in left foot - M79.672??? Plan: * Treatment: * Procedures:?Wart Treatment:?Procedure?Verrucae were debrided to pin-point bleeding margins with sterile 15 surgical blade, silver nitrate chemocautery applied, recomm. immune-boosting meds such as zinc, recomm. follow up with topical chemosurgical agents, Pt STILL, defers any other forms of tx (29460).? * Procedure Codes:?72815 Wart Destruction, 1-14 * Follow Up:?prn * Images: * Sign off status: Completed true * Provider:?Ivone Ramirez DPM Date:?2024 Generated for Kem garrett/Briana/eTransmitting on:?03/15/2025 08:57 AM EDT History and Physical Notes * HPI (History of Present Illness) Category Sub-Category Detail Notes Category Not es Skin problems Pt States PCP Visit: DATE: 09/27/2024 Examination Category Sub-Category Detail Notes Category Not es Dermatologic SKIN FINDINGS: VERRUCA: Reveals two, multi-l oculated , mosaically patterned, round, raised, flat-topped, petechial bleeding papule(s), with cauliflower appearance and interruption of skin lines, pain to lateral compression, and size estimated at 3mm diameter left heel, 2mm left plantar forefoot
--- OUTSIDE RECORDS SUMMARY | 2025-03-15 08:57 | XMS_ITS | Patient Health Record ---
Author Organization [facility] [place] Address [address] [place] [address] Care Team Providers Care Laundry Aide Name Role Phone Hakan Dewitt MD Primary Care Provider Unavaila Jerad Roymie Unavailable [phone] Allergies No Known Allergies Reason For Referral No Information Medications Medication SIG (Take, Route, Frequency, Duration) [...] 1 tablet Orally Once a day Active Immunizations Vaccine Route Administration Date Status Comme nts COVID-19 Pfizer BioNTech Vaccine Unknown 01/03/2021 Administered Second Dose: Social History Tobacco Use: Social History Observation Description Date Details (start date - stop date) Never Smoker NA - NA Tobacco Use/Smoking Question Answer Notes Are you a: nonsmoker Additional Findings: Tobacco Non-User Current no n-smoker Alcohol Screen Question Answer Notes Did you have a drink contain ing alcohol in the past year? Yes How often did you have a dri nk containing alcohol in the past year? 2 to 4 times a month (2 points) Points 2 Interpretation Negative Tobacco use other than smoking: Question Answer Notes Are you an other tobacco user? No Problems Problem Type SNOMED Code ICD Code Onset Dates Problem Status W/U Status Risk Notes Problem Acquired hammer toe of right foot (8795086302005 105) Other hammer toe(s) (acquired), right foot (M20.41) Active confirmed Problem Acquired hammer toe of left foot (5053076595996 103) Other hammer toe(s) (acquired), left foot (M20.42) Active confirmed Problem Plantar wart (49917780) Plantar wart (B07.0) Active confirmed Vital Signs Blood pressure diastolic 64 mm Hg 12/07/2024 Height 4ft9in in 12/07/2024 Blood pressure systolic 130 mm Hg 12/07/2024 Weight 94 lbs 12/07/2024 BMI 20.34 kg/m2 12/07/2024 Procedures Procedure Date Ordered Date Performed Result Body Sit e 28696-Bbdc Destruction, 12-1205/11/2024 N/A 95502-Fgro Destruction, 12-1212/07/2024 N/A Encounters Encounter Location Date Provider Diagnosis [facility] [address] 05/11/2024 Ivone Black Plantar wart B07.0 and Pain in left foot M79.[address] [facility] [address] 12/07/2024 Ivone Black Plantar wart B07.0 and Pain in left foot M79.672 Assessments Encounter Date Diagnosis (ICD Code) Assessment Notes Treatment Notes Treatment Clinical Notes Section Notes 05/11/2024 Plantar wart (ICD-10 - B07.0) 12/07/2024 Plantar wart (ICD-10 - B07.0) 12/07/2024 Pain in left foot (ICD-10 - M79.672) 05/11/2024 Pain in left foot (ICD-10 - M79.672) Plan Of Treatment Pending Test Test Name Order Date 22115-Bxrk Destruction, 12-1204/14/2021 69937-Yksb Destruction, 12-1206/16/2021 64503-Mqjr Destruction, 12-1209/22/2021 14203-Bazv Destruction, 12-1205/10/2023 51684-Hgtb Destruction, 12-1205/11/2024 92858-Ayro Destruction, 12-1212/07/2024 Next Appt Details Provider Name:Ivone Ramirez , 05/10/2025 01:30:00 PM, [address] [place], [address], Insurance Providers Payer Name Payer Address Payer Phone Subscriber Number Group Number Insured Name Patient Relationship to Insured Coverage Start Date Coverage End Date Medicare [employer] [address] [place] [address] [id number] Susie Jeff Self - patient is the insured [facility] [address] [place] [address] [phone] [id number] Susie Jeff Self - patient is the insured Medical (General) History Medical History History ICD Code Back,Hip,and Knee pain High blood pressure Numbness Osteoporosis raynauds disease Warts Measles Mumps Chicken pox Arthritis Surgical History Surgery Date(Month/Year) hysterectomy 11/1989 carpal tunnel surgery 12/2000 rotator cuff tear repair 12/2007
--- OUTSIDE RECORDS SUMMARY | 2025-03-15 08:57 | XMS_ITS | Clinical Summary ---
Author Organization [facility] Address [address] [place] [address] Care Team Providers Care Director Of Public Safety Name Role Phone Jayden Reyes MD Primary Care Provider Radha sullivan Allergies Active Allergy Reactions Criticality Noted Date Comments Magnesium Sulfate Other (See Comments) Medium 11/25/20 18 Per [facility] w-10 Morphine Other (See Comments) Low 06/10/2017 hallucinations Oxycodone-Acetaminophen Other (See Comments) Low hallucinations Penicillins Rash,Hives Medium 01/09/2014 Oxycodone Other (See Comments) Low 06/10/2017 Hallucinations Tramadol Other (See Comments) Low 11/25/2017 halluncinations Medications Medication Sig Dispensed Refills Start Date End Date Status aspirin EC 81 MG tablet Take 81 mg by mouth daily. 0 Active albuterol (PROVENTIL) (2.5 MG/3ML) 0.083% nebulizer solution Take 3 mL (2.5 mg total) by nebulization every 6 (six) hours as needed for wheezing. 150 mL 12 08/12/2020 Active anastrozole (ARIMIDEX) 1 MG tabletIndications: History of breast cancer Take 1 tablet (1 mg total) by mouth daily. 30 tablet 11 09/12/2020 Active Umeclidinium-Vilan terol (Anoro Ellipta) 62.5-25 MCG/INH AEPBIndications:Ch ronic obstructive pulmonary disease, unspecified COPD type (HCC) Inhale 1 puff into the lungs daily. 90 each 3 10/28/2020 Active MYRBETRIQ 50 MG TB24 take 1 tablet by mouth once daily 90 tablet 0 12/19/2020 Active oxybutynin (DITROPAN) 5 MG tablet take 1 tablet by mouth twice a day 180 tablet 1 01/09/2021 Active levothyroxine (SYNTHROID, LEVOXYL) tablet 100 mcg take 1 tablet by mouth once daily 90 tablet 1 02/10/2021 Active Sennosides (Senna) 8.6 MG CAPS Take 1 capsule by mouth 2 (two) times a day. 60 each 0 03/20/2021 Active docusate sodium (Colace) 100 MG capsule Take 1 capsule (100 mg total) by mouth 2 (two) times a day. 60 capsule 0 03/20/2021 Active bisacodyl (Dulcolax) 5 MG EC tablet Take 1 tablet (5 mg total) by mouth every other day. 30 tablet 0 03/20/2021 Active atorvastatin (LIPITOR) tablet 20 mg take 1 tablet by mouth once daily 90 tablet 1 05/13/2021 Active citalopram (CeleXA) 10 MG tablet take 1 tablet by mouth once daily 30 tablet 2 05/26/2021 Active omeprazole (PriLOSEC) 40 MG capsule take 1 capsule by mouth twice a day 60 capsule 2 05/26/2021 Active donepezil (ARICEPT) 10 MG tablet take 1 tablet by mouth at bedtime 90 tablet 1 06/03/2021 Active Active Problems Problem Noted Date Diagnosed Date [...] from 07/06/2018:Stage IA(pT1a, pN0, cM0, G1, ER+, ID+, HER2-) - Unsigned Cataract 05/27/2018 Hypertension 05/27/2018 [...] Hypothyroidism Dementia Overview: ON ARICEPT--DR. ANA CATES Resolved Problems Problem Noted Date Diagnosed Date Resolved Date Metabolic encephalopathy 03/20/2021 Cellulitis 03/17/2021 03/18/2021 Cellulitis of multiple sites of lower extremity 03/17/2021 03/18/2021 Acute metabolic encephalopathy 06/11/2020 06/13/2020 COPD exacerbation 06/11/2020 07/03/2020 Acute respiratory failure with hypoxia 06/11/2020 06/13/2020 UTI (urinary tract infection) 05/06/2020 05/08/2020 Femoral neck fracture 03/24/20202019 Overview: Added automatically from request for surgery [id number] Left displaced femoral neck fracture 03/24/2020 05/08/2020 [...] 54% Arthritis of right shoulder region 07/20/2018 Immunizations Name Administration Dates Next Due Influenza Trivalent (Fluad) 0.5mL (65 yrs &>) ,10/19/2018 Pneumococcal Conjugate PCV13 11/16/2016 Pneumococcal Polysaccharide PPSV23 10/19/2018 Family History Medical History Relation Name Comments Breast cancer Sister 1 3 sisters Breast cancer Sister 2 Breast cancer Sister 3 Breast cancer Sister 4 Breast cancer Sister 5 Relation Name Status Comments Father Mother Sister 1 Sister 2 Sister 3 Sister 4 Sister 5 Social History Tobacco Use Types Packs/Day Years Used Date Smoking Tobacco: Former Smokeless Tobacco: Never Tobacco Cessation:Counseling Given: No Alcohol Use Standard Drinks/Week Comments No 0 (1 standard drink = 0.6 oz pur e alcohol) Sex and Gender Information Value Date Recorded Sex Assigned at Female 10/19/2018 10:38 AM EST Gender Identity Female 10/19/2018 10:38 AM EST Sexual Orientation Not on file Job Start Date Occupation Industry Not on file Not on file Not on file Last Filed Vital Signs Vital Sign Reading Time Taken Comments Blood Pressure 132/68 03/20/2021 7:48 AM EDT Pulse 84 03/20/2021 7:48 AM EDT Temperature 37.3 ??C (99.1 ??F) 03/20/2021 7:48 AM ED T Respiratory Rate 18 03/20/2021 7:48 AM EDT Oxygen Saturation 95% 03/20/2021 7:48 AM EDT Inhaled Oxygen Concentration - - Weight 48.9 kg (107 lb 11.2 oz) 021 12:00 AM EDT Height 162.6 cm (5' 4 ) 03/18/2021 1:00 AM EDT Body Mass Index 18.49 03/18/2021 1:00 AM EDT Plan of Treatment Health Maintenance Due Date Last Done Comments COVID-19 Vaccine (#1) 1940 Shingrix-Zoster Vaccine (1 of 2) 1955 RSV Adult > 60+ Yrs or (1 - 1-dose 75+ series) 2011 Hepatitis B Vaccines (2 of 2 - CpG 2-dose series) 01/21/2018 2017 Osteoporosis Screening (DEXA Scan) 05/25/2021 05/25/2019, 05/25/2019, 01/14/2017 Depression Screening 06/05/2021 06/05/2020, 06/05/2020, 06/05/2020, Additional history exists Fall Risk Assessment 06/05/2021 06/05/2020, 06/05/2020, 06/05/2020, Additional history exists Preventative Health Evaluation 06/05/2021 06/05/2020, 06/05/2020, 05/22/2019, Additional history exists Influenza Vaccine (#1) 2024 09/12/2019, 2017 DTap / Tdap / Td (2 - Td or Tdap) 05/22/2029 05/22/2019 (Declined) Pneumococcal Vaccine Completed 10/19/2018, 11/16/20 16 RSV Ped < 20 months Aged Out No longe r eligible based on patient's age to complete this topic Goals Goal Patient Goal Type Associated Problems Recent Progress Patient-Stated? Author Patient/family will be knowledgeable of s/s to report to RN, MD BRITTANY Chronic Care Management Shereen Cifuentes RN Note: Family aware (pt with memory issues ), fevers, cough /congestion , increased SOB, wheeze , to call MD or seek medical attention Medical Devices Implanted Type Area Rn Immunology Device Identifier Shelf Expiration Date Model / Serial / Lot Screw Partial Thread 100mm 16mm 7mm Conrad Titanium Josh - [id number] - [id number] Implanted:Qty: 1 on 03/25/2020 by Fabiano Lopez MD at [facility] Left: Hip [employer] 02/14/2028 [id number] / / [id number] Screw Partial Thread 95mm 16mm 7mm Conrad [employer]ium Bon - [id number] - [id number] Implanted:Qty: 1 on 03/25/2020 by Fabiano Lopez MD at [facility] Left: Hip [employer] 10/23/2028 [id number] / / [id number] Screw Partial Thread 105mm 16mm 7mm Conrad [employer] Josh - [id number] - [id number] Implanted:Qty: 1 on 03/25/2020 by Fabiano Lopez MD at [facility] Left: Hip [employer] 03/24/2029 [id number] / / [id number] Advance Directives For more information, please contact: [phone] Documents on File Type Date Recorded Patient Newspaper Subscription Solicitor Expl anation Advance Directive and Living Will 03/21/2021 12:03 PM questionnaire Advance Directive and Living Will 06/14/2020 4:09 PM questionnaire Advance Directive and Living Will 05/09/2020 1:38 PM QUESTIONNAIRE Advance Directive and Living Will 03/29/2020 12:01 PM QUESTIONNAIRE Advance Directive and Living Will 12/05/2019 10:54 AM questionnaire Advance Directive and Living Will 12/02/2019 10:03 PM Advance Directive and Living Will 03/28/2019 questionnaire Advance Directive and Living Will 02/11/2019 QUESTIONNAIRE Advance Directive and Living Will 09/15/2017 Latest Code Status on File Code Status Date Activated Date Inactivated Comments Code A- Full Code 03/17/2021 9:26 PM 03/20/2021 8:24 PM This code status was ascertained in the following way: discussion with patient . Code Status History Code Status Date Activated Date Inactivated Comments Code A- Full Code 06/11/2020 2:22 PM 06/13/2020 6:34 PM This code status was ascertained in the following way: discussion with patient . Code A- Full Code 05/06/2020 9:54 PM 05/08/2020 9:39 PM T his code status was ascertained in the following way: discussion with patient . Code A- Full Code 03/24/2020 10:29 PM 03/28/2020 11:06 P M This code status was ascertained in the following way: discussion with patient . Code A- Full Code 12/02/2019 4:05 PM 12/04/2019 10:00 PM T his code status was ascertained in the following way: as per full code . Care Teams Director Of Public Safety Relationship Specialty Start Date End Date Jayden Reyes MD PCP - General Internal Medicine 06/17/18
--- OUTSIDE RECORDS SUMMARY | 2025-03-15 08:57 | XMS_ITS | Clinical Summary ---
Author Organization [facility] Address [id number] [place] [id number] Care Team Providers Care Float Remover Name Role Phone Hakan Dewitt MD Primary Care Provider [phone] Surgical History Surgery Date Site/Laterality Comments BREAST LUMPECTOMY 07/06/2018 Right PROCEDURE:BREAST LUMPECTOMY;COMMENT:10:00, Dr. 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 RUTLEDGE 2014 ESOPHAGOGASTRODUODENOSCOPY 05/15/2017 PROCEDURE:ESOPHAGOGASTROD UODENOSCOPY;COMMENT:Dr. Koenig-food impaction removed, moderate esophageal spasms, narrowing distal third of esophagus, moderate diffuse gastritis BREAST BIOPSY 06/06/2018 Right PROCEDURE:BREAST BIOPSY;COMMENT:10:00, IDC w/DCIS, Dr. Crooks, [facility] COLONOSCOPY 08/17/2015 PROCEDURE:COLONOSCOPY;COM MENT:mild ichemic changes hepatic flexure, diverticulosis in splenic flexure and ascending colon ESOPHAGOGASTRODUODENOSCOPY 03/23/2012 PROCEDURE:ESOPHAGOGASTROD UODENOSCOPY UPPER GASTROINTESTINAL ENDOSCOPY 11/19/2017 PROCEDURE:UPPER GASTROINTESTINAL ENDOSCOPY;COMMENT:Dr. Price, distal esophagus dilated, botox 100 units UPPER GASTROINTESTINAL ENDOSCOPY 06/05/2016 PROCEDURE:UPPER GASTROINTESTINAL ENDOSCOPY UPPER GASTROINTESTINAL ENDOSCOPY 06/03/2010 PROCEDURE:UPPER GASTROINTESTINAL ENDOSCOPY UPPER GASTROINTESTINAL ENDOSCOPY 09/05/2009 PROCEDURE:UPPER GASTROINTESTINAL ENDOSCOPY UPPER GASTROINTESTINAL ENDOSCOPY 09/13/2009 PROCEDURE:UPPER GASTROINTESTINAL ENDOSCOPY BOWEL RESECTION PROCEDURE:BOWEL RESECTION ROTATOR CUFF REPAIR Bilateral PROCEDURE:ROTATOR CUFF REPAIR GASTROSTOMY TUBE PLACEMENT PROCEDURE:GASTROSTOMY TUBE PLACEMENT HIP PINNING 03/25/2020 Left PROCEDURE:HIP PINNING;COMMENT:Procedure : PINNING HIP; Surgeon: Fabiano Lopez MD; Location: [facility] OPERATING ROOM; Service: Orthopedics; Laterality: Left; MASTECTOMY PROCEDURE:MASTECTOMY;COMM ENT:partial left do not use left arm Medical History Medical History Date Comments Osteoporosis DX:Osteoporosis Hypothyroidism DX:Hypothyroidis m Urinary incontinence DX:Urinary incontinence COPD (chronic obstructive pu lmonary disease) ([facility] V24, [facility] V28) DX:COPD (chronic o bstructive pulmonary disease) ([facility]);COMMENT:DR. SNIDER, PFTS--02/11, FEV1/FVC 55%, FEV1 54% Arthritis of right shoulder region DX:Arthritis of right shoulder region Dementia ([facility] V24, [facility] V28) DX:Dementia ([facility]);COMMENT:ON ARICEPT--DR. ANA CATES Hypertension DX:Hypertension Allergic rhinitis DX:Allergic rh initis Chronic fatigue, unspecified DX: Chronic fatigue, unspecified Hyperlipidemia DX:Hyperlipidemi a Iron deficiency anemia, unspecified DX:Iron deficiency anemia, unspecified Vitamin B12 deficiency anemi a, unspecified DX:Vitamin B12 deficiency an emia, unspecified Vitamin D deficiency, unspecified DX:Vitamin D deficiency, unspecified Pneumonia DX:Pneumonia Dysphagia DX:Dysphagia Food impaction of esophagus DX:F ood impaction of esophagus Status post dilation of esop hageal narrowing DX:Status post dilation of e sophageal narrowing Hiatal hernia DX:Hiatal hernia Chronic constipation DX:Chronic constipation Schatzki's ring DX:Schatzki's ri ng GERD (gastroesophageal reflux disease) DX:GERD (gastroesophageal reflux disease) Diverticulitis of colon DX:Diver ticulitis of colon S/p left hip fracture 02/2020 DX:S/p lef t hip fracture Breast cancer ([facility] V24, [facility] V28) DX:Breast cancer ([facility]);COMMENT:ER/LA+' HER2 NEGATIVE, S/P LUMPECTOMY AND RADIATION ON ARIMIDEX Breast cancer ([facility] V24, [facility] V28) 06/2018 DX:Breast cancer ([facility]);COMMENT:Rght lumpectomy (prev hx of left breast ca) Family History Medical History Relation Name Comments Breast cancer Sister 1 3 sisters Breast cancer Sister 2 Breast cancer Sister 3 Breast cancer Sister 4 Breast cancer Sister 5 Relation Name Status Comments Father Mother Sister 1 Sister 2 Sister 3 Sister 4 Sister 5 Social History Tobacco Use Types Packs/Day Years Used Date Smoking Tobacco: Former Smokeless Tobacco: Never Alcohol Use Standard Drinks/Week Comments No 0 (1 standard drink = 0.6 oz pur e alcohol) Comments Unknown Sex and Gender Information Value Date Recorded Sex Assigned at Not on file Legal Sex Female 12:06 AM EST Gender Identity Not on file Sexual Orientation Not on file Obstetrics History Plan of Treatment Health Maintenance Due Date Last Done Comments DTaP,Tdap,and Td Vaccines (1 - Tdap) 1955 Zoster Vaccines (1 of 2) 1986 RSV Immunization Adult Patients (1 - 1-dose 75+ series) 2011 Cholesterol Screening (Lipid Panel) 11/01/2022 Hypertension/CHF/CAD Annual BMP Blood Test 11/15/2022 COVID-19 Vaccine ( - 2023-2 5 season) 2024 Influenza Vaccine (Season Ended) 2025 09/12/2019, 10/19/2018 Osteoporosis Screening (Bone Density Screening) 05/25/2029 05/25/2019 Pneumococcal Vaccine: 50+ Years Completed 10/19/2018, 11/16/2016 HIB Vaccines Aged Out No longer eligi ble based on patient's age to complete this topic HPV Vaccines Aged Out No longer eligi ble based on patient's age to complete this topic Hepatitis A Vaccines Aged Out No long er eligible based on patient's age to complete this topic Hepatitis B Vaccines Aged Out No long er eligible based on patient's age to complete this topic IPV Vaccines Aged Out No longer eligi ble based on patient's age to complete this topic MMR Vaccines Aged Out No longer eligi ble based on patient's age to complete this topic Meningococcal ACWY Vaccine Aged Out N o longer eligible based on patient's age to complete this topic Meningococcal B Vaccine Aged Out No l onger eligible based on patient's age to complete this topic RSV Immunization Patients Under 20 months Aged Out No longer eligible b ased on patient's age to complete this topic Varicella Vaccines Aged Out No longer eligible based on patient's age to complete this topic Medical Devices Implanted Type Area Naphthalene Operator Helper Device Identifier Shelf Expiration Date Model / Serial / Lot Screw Partial Thread 100mm 16mm 7mm Conrad [employer] Josh - [id number] Implanted:Qty: 1 on 03/25/2020 by Fabiano Lopez MD Left: Hip [employer] 02/14/2028 [id number] / / [id number] Screw Partial Thread 95mm 16mm 7mm Conrad [employer]ium Bon - [id number] Implanted:Qty: 1 on 03/25/2020 by Fabiano Lopez MD Left: Hip [employer] 10/23/2028 [id number] / / [id number] Screw Partial Thread 105mm 16mm 7mm Conrad [employer]ium Josh - [id number] Implanted:Qty: 1 on 03/25/2020 by Fabiano Lopez MD Left: Hip [employer] 03/24/2029 [id number] / / [id number] Procedures Procedure Name Priority Date/Time Associated Diagnosis Comments BONE DENSITY STUDY Routine 05/25/2019 10 :27 AM EDT Age-related osteoporosis without current pathological fracture from Last 3 Months or Most Recently Relevant to Health Maintenance Results * BONE DENSITY STUDY (05/25/2019 10:27 AM EDT) Anatomical Region Laterality Modality Bone Densitometr y 05/22/2019 11:1 7 AM EDT Narrative 05/25/2019 11:28 AM EDT LUMBAR SPINE BMD is 0.85 g/cm2. ??T Score is -1.5 SD. This is in the range of osteopenia. LEFT HIP REGION BMD is 0.706 g/cm2. ??LEFT FEMORAL NECK BMD is 0.701 g/cm2. ??The lowest T Score is -1.9 SD. This is in the range of osteopenia. Vertebral deformity assessment demonstrates mild chronic appearing wedging of midthoracic vertebral bodies. The presence of a spine fracture would indicate 5x risk for subsequent spine fracture and 2x risk for subsequent hip fracture. IMPRESSION: Bone mineral density for the lumbar spine is osteopenic and the increased risk of lumbar spine insufficiency fracture is 2-4 times. Compared to 01/14/2017 there has been decrease in BMD of 4.1% however previous exam was performed using dissimilar scan types or analysis methods which precludes evaluation of significant change. Bone mineral density for the femur is osteopenic and the increased risk of femur insufficiency fracture is 2-4 times. Compared to 01/14/2017 there has been decrease in BMD of 8% however previous exam was performed using dissimilar scan types or analysis methods which precludes evaluation of significant change. According to the World Health Organization Fracture Risk Assessment Tool (FRAX), the 10 year major osteoporotic fracture risk is 10%. ??The 10 year hip fracture risk is 2.7%. Report reviewed and signed by : Dr. Nadir Isabel DO on 05/25/2019 11:28 AM. Workstation Name - [id number] Procedure Note Nadir Isabel DO - 11/21/2022 LUMBAR SPINE BMD is 0.85 g/cm2. T Score is -1.5 SD. This is in the rangeof osteopenia. LEFT HIP REGION BMD is 0.706 g/cm2. LEFT FEMORAL NECK BMD is 0.701 g/cm2.The lowest T Score is -1.9 SD. This is in the range of osteopenia. Vertebral deformity assessment demonstrates mild chronic appearing wedgingof midthoracic vertebral bodies. The presence of a spine fracture would indicate 5x risk for subsequentspine fracture and 2x risk for subsequent hip fracture. IMPRESSION: Bone mineral density for the lumbar spine is osteopenic and the increasedrisk of lumbar spine insufficiency fracture is 2-4 times. Compared to 01/14/2017 there has been decrease in BMD of 4.1% howeverprevious exam was performed using dissimilar scan types or analysismethods which precludes evaluation of significant change. Bone mineral density for the femur is osteopenic and the increased risk offemur insufficiency fracture is 2-4 times. Compared to 01/14/2017 there has been decrease in BMD of 8% howeverprevious exam was performed using dissimilar scan types or analysismethods which precludes evaluation of significant change. According to the World Health Organization Fracture Risk Assessment Tool(FRAX), the 10 year major osteoporotic fracture risk is 10%. The 10 yearhip fracture risk is 2.7%. Report reviewed and signed by : Dr. Nadir Isabel DO on 05/25/2019 11:28AM. Workstation Name - [id number] Jayden Reyes MD IMG DXA PROCEDURES Final Result from Last 3 Months or Most Recently Relevant to Health Maintenance Advance Directives Documents on File Type Date Recorded Patient Hr Internship Expl anation Health Care Decision (hx) 03/21/2021 AD CARNEY DIRECTIVE Care Teams Float Remover Relationship Specialty Start Date End Date Hakan Dewitt MD [address] [place] [id number] PCP - General Internal Medicine 12/04/21
--- OUTSIDE RECORDS SUMMARY | 2025-03-15 08:57 | XMS_ITS | Continuity of Care Document ---
Author Organization [facility] Address [address] [address] Phone Care Team Providers Care Inside Sales Supervisor Name Role Phone Chris Birmingham MD Unavailable Unavailable Allergies, Adverse Reactions, Alerts Substance Reaction Status Criticality PENICILLIN Active No Information OXYCODONE HCL Active No Information acetaminophen Active No Information tramadol Active No Information morphine Active No Information Medications Medication Instructions Dosage Effective Dates (start - stop) Status Comments ADVAIR HFA (unknown strength) Not Available - Active TIROSINT (unknown strength) Not Available - Active SPIRIVA HANDIHALER (unknown strength) Not Available - Active DONEPEZIL HCL (unknown strength) Not Available - Active LOW DOSE ASPIRIN EC (unknown strength) Not Available - Active ALBUTEROL SULFATE (unknown strength) Not Available - Active Procedures Procedure Date Office/Outpt E&M Established 10 Mins Feb PT Did Not Receive Services VenaSeal Endovenous Ablation, 1st Vein N Duplex Scan-extrem Veins; Uni/ 18 PT Did Not Receive Services PT Did Not Receive Services VenaSeal Endovenous Ablation, 1st Vein O PT Did Not Receive Services Office/Oupt E&M New Pt 45 Mins Duplex Scan-extrem Veins; Comp Advance Directives Directive Yes / No Effective Date File Name No Information Encounters Encounter Description Practice Location Reason(s) For Visit Diagnoses Date Provider Providers Copied on Encounter Office/Outpt E&M Established 10 Mins [facility], [address] [place] [address], [place], [place], [id number], [place] tel:[phone] [place] Varicose veins of bilateral lower extremities with pain 9 Valencia Perez. [address] [place] [address], [id number] , [place]. tel: [phone] Referring Provider: Jayden Reyes MD, [address] [place] [address], [id number]. tel:[phone] [facility], [address] [place] [address], [id number], [place] tel:[phone] VR - [place] [facility] No Information 9 Valencia Perez. [address] [place] [address], [id number] , [place]. tel: [phone] Referring Provider: Jayden Reyes MD, [address] [place] [address], [id number]. tel:[phone] [facility], [address] [place] [address], [id number], [place] tel:[phone] [place] Varicose veins of right low extrm w oth complications 8 Valencia Perez. [address] [place] [address], [id number] , [place]. tel: [phone] Referring Provider: Jayden Reyes MD, [address] [place] [address], [id number]. tel:[phone] [facility], [address] [place] [address], [id number], [place] tel:[phone] [place] Chronic venous hypertension w oth comp of l low extrem 8 Adrian Atwood. [address], [address], [place], [address], [place]. tel: [phone] Referring Provider: Jayden Reyes MD, [address] [place] [address], [id number]. tel:[phone] [facility], [address] [address], [place], [place], [id number], [place] tel:[phone] VR - [facility] No Information 8 Valencia Perez. [address] [place] [address], [id number] , [place]. tel: [phone] Referring Provider: Jayden Reyes MD, [address] [place] [address], [id number]. tel:[phone] [facility], [address] [address], [place], [place], [id number], [place] tel:[phone] VR - [facility] No Information 8 Adriankendra Atwood. [address], [address], [place], [address], [place]. tel: [phone] Referring Provider: Jayden Reyes MD, [address] [place] [address], [facility]. tel:[phone] [facility], [address] [address], [place], [place], [id number], [place] tel:[phone] - [facility] Varicose veins of left lower extremities w oth complications 8 Valencia Perez. [address] [place] [address], [id number] , [place]. tel: [phone] Referring Provider: Jayden Reyes MD, [address] [place] [address], [address]. tel:[phone] [facility], [address] [place] [address], [id number], [place] tel:[phone] VR - [facility] No Information 8 Valencia Perez. [address] [place] [address], [id number] , [place]. tel: [phone] Referring Provider: Jayden Reyes MD, [address] [place] [address], [id number]. tel:[phone] Office/Oupt E&M New Pt 45 Mins [facility], [address] [place] [address], [id number], tel:[phone] [facility] Body mass index (BMI) 19 or less, adultVenous insufficiency (chronic) (peripheral)Va ricose veins of bilateral lower extremities with pain Aug- 8 Valencia SPICER [place]. [address] [place] [address], [id number] , [place]. tel: [phone] Referring Provider: Jayden Reyes MD, [address] [place] [address], [facility]. tel:[phone] [facility], [address] [place] [address], [id number], tel:[phone] [facility] Chronic venous htn w oth comp of bilateral low extrm Aug- 8 Adrian Atwood. [address], [address], [place], [address], [place]. tel: [phone] Referring Provider: Jayden Reyes MD, [address] [place] [address], [facility]. tel:[phone] Family History Family Member Type Diagnosis Age At Onset No Information Payers Payer name Insurance type Covered republican ID Authoriza tily(s) Medicare [place] [id number] Social History Type Description Quantity Date Captured Comments Alcohol Use Details No Caffeine Use Details Unknown Tobacco Use Status No Information Smoking Status Former smoker Sex Female Chief Complaint And Reason For Visit No Information Reason For Referral Reason For Referral No Information Plan Of Treatment Date Type Action Status Goal Diet education completed Goal Tobacco cessation counseling completed Referral Ordered: Duplex Scan-extrem Veins; Comp Bilateral leg ordered History Of Present Illness Encounter Date Complaint History Of Prese nt Illness No Information Functional Status Date Functional Assessmen t No Information Instructions Date Instruction Additional Infor mation Giving Encouragement to Exercise Related to Body mass index (BMI) 19.9 or less, adult Diet education Related to Body mass index (BMI) 19.9 or less, adult Pre and post instruc tions reviewed and provided Related to Venous Insufficiency (Chronic / Peripheral) Patient education booklet given Related to Venous Insufficiency (Chronic / Peripheral) Assessments Type Assessment Date assessment Varicose veins of bilateral lowe r extremities with pain Patient Care Teams Name Effective Dates (start - stop) Status Members No Information
--- OUTSIDE RECORDS SUMMARY | 2025-03-15 08:57 | XMS_ITS | Encounter Summary ---
Author Organization [facility] Address [address] [place] [address] Care Team Providers Care Patient Coordinator Name Role Phone Jayden Reyes MD Primary Care Provider Radha sullivan Encounter Details Date Type Department Care Team Description 07/19/2020 Chronic Care Management [address] [address] Shereen Iniguez RN Social History Tobacco Use Types Packs/Day Years [...] file Not on file Not on file documented as of this encounter Functional Status Functional Status Response Date of Assess ment Pt deaf or have serious difficulty hearing? No 06/13/2020 Pt blind or have difficulty seeing, even with gl asses? No 06/13/2020 Do you have serious difficul ty walking or climbing stairs? (Retired) No 09/12/2017 Pt have difficulty dressing or bathing? (Retired ) No 09/12/2017 Pt have difficulty doing errands alone? (Retired ) Yes 09/12/2017 Cognitive Status Response Date of Assessm ent Pt have difficulty concentra ting, remembering, making decisions? (Retired) No 09/12/2017 documented as of this encounter Plan of Treatment Not on file documented as of this encounter Goals Goal Patient Goal Type Associated Problems Recent Progress Patient-Stated? Author Patient/family will be knowledgeable of s/s to report to RN, MD BRITTANY Chronic Care Management No Geetha, Shereen L, RN Note: Family aware (pt with memory issues ), fevers, cough /congestion , increased SOB, wheeze , to call MD or seek medical attention documented as of this encounter Visit Diagnoses Not on filedocumented in this encounter Care Teams Patient Coordinator Relationship Specialty Start Date End Date Jayden Reyes MD PCP - General Internal Medicine 06/17/18 documented as of this encounter
--- OUTSIDE RECORDS SUMMARY | 2025-03-15 08:58 | XMS_ITS ---
Author Organization [facility] Address [address] [facility] [place] [address] Care Team Providers Care Cruise Staff Member Name Role Phone Hakan Dewitt MD Primary Care Provider Unavaila celina Black, Ivone Unavailable [phone] Allergies No Known Allergies REASON FOR VISIT Wart(s) Medications Medication SIG (Take, Route, Frequency, Duration) Notes Start Date End Date Status Fosamax 70 MG 1 tablet 30 minutes before the first food, beverage or medicine of the day with plain water Orally Not-Taking Pantoprazole Sodium 20 MG 1 tablet Orall y Once a day Active Valsartan-hydroCHLOROthia zide 160-12.5 MG 1 tablet Orally Once a day Active amLODIPine Besylate 5 MG as directed Ora lly Once a day Active Social History Tobacco [...] user? No Vital Signs Blood pressure systolic 128 mm Hg 05/11/20 24 Blood pressure diastolic 52 mm Hg 024 Height 4ft9in in 05/11/2024 Weight 95 lbs 05/11/2024 BMI 20.56 kg/m2 05/11/2024 Procedures Procedure Date Ordered Date Performed Result Body Sit e 47957-Lury Destruction, 1-14 05/11/2024 N/A Encounters Encounter Location Date Provider Diagnosis [facility] [address] [place] [address] 05/11/2024 Ivone Ramirez Plantar wart B07.0 and Pain in left foot M79.672 Assessments Encounter Date Diagnosis (ICD Code) Assessment Notes Treatment Notes Treatment Clinical Notes Section Notes 05/11/2024 Plantar wart (ICD-10 - B07.0) 05/11/2024 Pain in left foot (ICD-10 - M79.672) Plan Of Treatment Pending Test Test Name Order Date 60962-Cncm Destruction, -05/11/2024 Next Appt Details Follow Up: prn, Reason: Provider Name:Ivone Ramirez , 05/10/2025 01:30:00 PM, [address] [place] [address], [id number], Procedure Notes * Category Sub-Category Detail Notes Wart Treatment Procedure Verrucae were de brided to pin-point bleeding margins with sterile 15 surgical blade, silver nitrate chemocautery applied, recomm. immune-boosting meds such as zinc, recomm. follow up with topical chemosurgical agents, Pt defers any other forms of tx (52005) Progress Notes * Susie WYNN ADOB:1935 (88 yo F)Acc No.[id number]:05/11/2024 Progress Note Patient:?Susie Wynn A Provider:?Ivone Ramirez DPM :1935???Age:88 Y???Sex:Female D ate:05/11/2024 Address:[address] [place] [address] Pcp:Hakan Dewitt MD Subjective: * Chief Complaints: * ???Wart(s) * HPI: ???Skin problems:?Pt States PCP Visit: ?DATE?04/19/2024 * Medical History:? * Surgical History:?hysterecto my 11/1989carpal tunnel surgery 12/2000rotator cuff tear repair 12/2007 * Hospitalization/Major Diagno stic Procedure:?Denies Past Hospitalization * Family History:?Mother: dece ased, stroke, poor circulation, diagnosed with Family history of arthritis.?Father: , cancer, poor circulation, diagnosed with Unspecified essential hypertension, Family history of arthritis, Diabetic - NIDDM.?Siblings: stroke, cancer, poor circulation, diagnosed with Unspecified essential hypertension.? * Social History:?Tobacco Use:?Tobacco Use/Smoking?Are you a:?nonsmoker ?Additional Findings: Tobacco Non-User?Current non-smoker ?Tobacco use other than smoking?Are you an other tobacco user??No ???Drugs/Alcohol:?Drugs?Have you used drugs other than those for medical reasons in the past 12 months??No ?Alcohol Screen?Did you have a drink containing alcohol in the past year??Yes ?How often did you have a drink containing alcohol in the past year??2 to 4 times a month (2 points) ?Points?2 ?Interpretation?Negative ???Miscellaneous:?Caffeine: yes, 2-3 cups per day (decaf tea). ?Children: yes, 3. ?Exercise: yes, volunteer work, walking, gardening/yard work. ?Marital status: . 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 * Medications:?TakingamLODIPin e Besylate 5 MG Tablet as directed Orally Once a dayValsartan-hydroCHLOROthiazide 160-12.5 MG Tablet 1 tablet Orally Once a dayPantoprazole Sodium 20 MG Tablet Delayed Release 1 tablet Orally Once a dayTaking amLODIPine Besylate 5 MG Tablet as directed Orally Once a dayTaking Valsartan-hydroCHLOROthiazide 160-12.5 MG Tablet 1 tablet Orally Once a dayTaking Pantoprazole Sodium 20 MG Tablet Delayed Release 1 tablet Orally Once a dayNot-Taking/PRNFosamax 70 MG Tablet 1 tablet 30 minutes [...] gies Verified] Objective: * Vitals:?Ht: 4ft9in, Wt: 95, BMI: 20.56, Shoe size: 7, BP: 128/52 mm Hg, Ht-cm: 144.78 cm, Wt-k.09 kg. * Examination: ???Dermatologic: ?VERRUCA:?Reveals two, multi-loculated , mosaically patterned, round, raised, flat-topped, petechial bleeding papule(s), with cauliflower appearance and interruption of skin lines, pain to lateral compression, and size estimated at 4mm diameter left heel, 2mm left plantar forefoot.? Assessment: * Assessment: 1.?Plantar wart - B07.0 (Radha nu)?2.?Pain in left foot - M79.672? Plan: * Treatment: * Procedures:?Wart Treatment:?Procedure?Verrucae were debrided to pin-point bleeding margins with sterile 15 surgical blade, silver nitrate chemocautery applied, recomm. immune-boosting meds such as zinc, recomm. follow up with topical chemosurgical agents, Pt defers any other forms of tx ([address]).? * Procedure Codes:?67318 Wart Destruction, 1-14 * Follow Up:?prn * Images: * Sign off status: Completed true * Provider:?Ivone Ramirez DPM Date:?2023 Generated for Kem garrett/Briana/eTransmitting on:?03/15/2025 08:57 AM EDT History and Physical Notes * HPI (History of Present Illness) Category Sub-Category Detail Notes Category Not es Skin problems Pt States PCP Visit: DATE: 04/19/2024 Examination Category Sub-Category Detail Notes Category Not es Dermatologic SKIN FINDINGS: VERRUCA: Reveals two, multi-l oculated , mosaically patterned, round, raised, flat-topped, petechial bleeding papule(s), with cauliflower appearance and interruption of skin lines, pain to lateral compression, and size estimated at 4mm diameter left heel, 2mm left plantar forefoot
== END 2025-03-15 10:04 | disposition home or self-care (01) ==
LOC: HO.HOS 08:33
PROVIDERS: PCP Internal Medicine; Visit Provider Physical Medicine & Rehabilitation
DX: G89.29 Other chronic pain (principal); M16.11 Unilateral primary osteoarthritis, right hip; M54.41 Lumbago with sciatica, right side; W19.XXXA Unspecified fall, initial encounter
CPT/HCPCS: 99204

== ENCOUNTER → 2025-03-15 08:35 | Outpatient (BNV) | payer MEDICARE, SELFPAY | PROVIDERS: Visit Provider Radiology Diagnostic Radiology | DX: M41.87 Other forms of scoliosis, lumbosacral region (principal); M16.11 Unilateral primary osteoarthritis, right hip | CPT/HCPCS: 72100; 73502 ==

== ENCOUNTER 2025-03-15 09:07 | Outpatient (REF) | payer MEDICARE, SELFPAY ==
--- NOTE | ~2025-03-15 | XR_ITS ---
EXAMINATION: XR LUMBOSACRAL SPINE CLINICAL INFORMATION: M54.9 - Dorsalgia, unspecified COMPARISON: None available. TECHNIQUE: Three views of the lumbosacral spine. FINDINGS: There is maintained lumbar lordosis. There is mild dextroscoliosis with loss of disc height virtually at every disc level and spondylosis. No acute fracture or lytic process seen. SI joints are symmetrical and normal XR/XR lumbar spine 2-3V IMPRESSION: Dextroscoliosis of dorsolumbar spine there are degenerative disc changes and spondylosis. No visible fracture or dislocation seen.. Electronically signed by: Dc Bello MD 03/15/2025 10:17 AM EDT
--- NOTE | ~2025-03-15 | XR_ITS ---
EXAMINATION: XR HIP, RIGHT CLINICAL INFORMATION: M25.551 - Pain in right hip COMPARISON: December 12, 2019. TECHNIQUE: Two views of the right hip. FINDINGS: Sclerosis along the articular surface of the right acetabulum. Small subchondral cyst in the right femoral head. Asymmetric joint space narrowing. No acute cortical disruption or malalignment. No lytic or blastic lesions. Degenerative changes in the symphysis pubis. Spondylosis L4-5 and L5-S1. Vascular calcifications. 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 Atherosclerosis disease, peripheral. Electronically signed by: Luis Walker MD 03/15/2025 09:42 AM EDT
--- OUTSIDE RECORDS SUMMARY | 2025-03-15 10:06 | XMS_ITS | Continuity of Care Document ---
Author Organization [facility] Address [address] [address] Phone Care Team Providers Care Boiler House Supervisor Name Role Phone Chris Birmingham MD [...] Established 10 Mins [facility], [address] [place] [address], [place], [place], [id number], [place] tel:[phone] [place] - [place] Varicose veins of bilateral lower extremities with pain 9 Valencia Perez. [address] [place] [address], [id number] , [place]. tel: [phone] Referring Provider: Jayden Reyes MD, [address] [place] [address], [id number]. tel:[phone] [facility], [address] [place] [address], [id number], [place] tel:[phone] VR - [place] [facility] No Information 9 Valencia Perez. [address] [place] [address], [id number] , [place]. tel: [phone] Referring Provider: Jayden Reyes MD, [address] [place] [address], [id number]. tel:[phone] [facility], [address] [place] [address], [id number], [place] tel:[phone] VR - [place] Varicose veins of right low extrm w oth complications 8 Valencia Perez. [address] [place] [address], [id number] , [place]. tel: [phone] Referring Provider: Jayden Reyes MD, [address] [place] [address], [address]. tel:[phone] [facility], [address] [place] [address], [id number], [place] tel:[phone] VR - [place] Chronic venous hypertension w oth comp of l low extrem 8 Adrian Atwood. [address], [address], [place], [address], [place]. tel: [phone] Referring Provider: Jayden Reyes MD, [address] [place] [address], [address]. tel:[phone] [facility], [address] [address], [place], [place], [id number], [place] tel:[phone] VR - [facility] No Information 8 Valencia Perez. [address] [place] [address], [id number] , [place]. tel: [phone] Referring Provider: Jayden Reyes MD, [address] [place] [address], [id number]. tel:[phone] [facility], [address] [address], [place], [place], [id number], [place] tel:[phone] VR - [facility] No Information 8 Adriankendra Atwood. [address], [address], [place], [address], [place]. tel: [phone] Referring Provider: Jayden Reyes MD, [address] [place] [address], [facility]. tel:[phone] [facility], [address] [address], [place], [place], [id number], [place] tel:[phone] - [facility] Varicose veins of left lower extremities w oth complications 8 Valencia Perez. [address] [place] [address], [id number] , [place]. tel: [phone] Referring Provider: Jayden Reyes MD, [address] [place] [address], [id number]. tel:[phone] [facility], [address] [place] [address], [id number], [place] tel:[phone] VR - [facility] No Information 8 Valencia Perez. [address] [place] [address], [id number] , [place]. tel: [phone] Referring Provider: Jayden Reyes MD, [address] [place] [address], [id number]. tel:[phone] Office/Oupt E&M New Pt 45 Mins [facility], [address] [place] [address], [id number], tel:[phone] [facility] Body mass index (BMI) 19 or less, adultVenous insufficiency (chronic) (peripheral)Va ricose veins of bilateral lower extremities with pain Aug- 8 Valencia SPICER [place]. [address] [place] [address], [id number] , [place]. tel: [phone] Referring Provider: Jayden Reyes MD, [address] [place] [address], [facility]. tel:[phone] [facility], [address] [place] [address], [id number], tel:[phone] [facility] Chronic venous htn w oth comp of bilateral low extrm Aug- 8 Adrian Atwood. [address], [address], [place], [address], [place]. tel: [phone] Referring Provider: Jayden Reyes MD, [address] [place] [address], [facility]. tel:[phone] Family History Family Member Type Diagnosis Age At Onset No Information Payers Payer name Insurance type Covered green party ID Authoriza tily(s) Medicare [place] [id number] Social History Type Description Quantity Date Captured [...]
--- OUTSIDE RECORDS SUMMARY | 2025-03-15 10:06 | XMS_ITS | Clinical Summary ---
Author Organization [facility] Address [address] [place] [address] Care Team Providers Care Detention Officer Name Role Phone Hakan Dewitt MD Primary Care Provider [phone] Surgical History Surgery Date Site/Laterality Comments BREAST LUMPECTOMY 07/06/2018 Right PROCEDURE:BREAST LUMPECTOMY;COMMENT:10:00, Dr. 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 RUTLEDGE 2014 ESOPHAGOGASTRODUODENOSCOPY 05/15/2017 PROCEDURE:ESOPHAGOGASTROD UODENOSCOPY;COMMENT:Dr. Koenig-food impaction removed, moderate esophageal spasms, narrowing distal third of esophagus, moderate diffuse gastritis BREAST BIOPSY 06/06/2018 Right PROCEDURE:BREAST BIOPSY;COMMENT:10:00, IDC w/DCIS, Dr. Crooks, [facility] COLONOSCOPY 08/17/2015 PROCEDURE:COLONOSCOPY;COM MENT:mild ichemic changes hepatic [...] PINNING HIP; Surgeon: Fabiano Lopez MD; Location: [facility] OPERATING [facility]; Service: Orthopedics; Laterality: Left; MASTECTOMY PROCEDURE:MASTECTOMY;COMM ENT:partial left do not use left arm Medical History Medical History Date Comments Osteoporosis DX:Osteoporosis Hypothyroidism DX:Hypothyroidis m Urinary incontinence DX:Urinary incontinence COPD (chronic obstructive pu lmonary disease) ([facility] V24, [facility] V28) DX:COPD (chronic o bstructive pulmonary disease) ([facility]);COMMENT:DR. SNIDER, PFTS--02/11, FEV1/FVC 55%, FEV1 54% Arthritis of right shoulder region DX:Arthritis of right shoulder region Dementia ([facility] V24, [facility] V28) DX:Dementia ([facility]);COMMENT:ON ARICEPT--DR. ANA CATES Hypertension DX:Hypertension Allergic rhinitis [...] DX:S/p lef t hip fracture Breast cancer ([facility] V24, [facility] V28) DX:Breast cancer ([facility]);COMMENT:ER/MA+' HER2 NEGATIVE, S/P LUMPECTOMY AND RADIATION ON ARIMIDEX Breast cancer ([facility] V24, [facility] V28) 06/2018 DX:Breast cancer ([facility]);COMMENT:Rght lumpectomy (prev hx of left breast ca) [...] this topic Medical Devices Implanted Type Area Fountain Server Device Identifier Shelf Expiration Date Model / Serial / Lot Screw Partial Thread 100mm 16mm 7mm [employer] Josh - [id number] Implanted:Qty: 1 on 03/25/2020 by Fabiano Lopez MD Left: Hip [employer] 02/14/2028 [id number] / / [id number] Screw Partial Thread 95mm 16mm 7mm [employer] Bon - [id number] Implanted:Qty: 1 on 03/25/2020 by Fabiano Lopez MD Left: Hip [employer] 10/23/2028 [id number] / / [id number] Screw Partial Thread 105mm 16mm 7mm [employer] Josh - [id number] Implanted:Qty: 1 on 03/25/2020 by Fabiano Lopez MD Left: Hip [employer] 03/24/2029 [id number] / / [id number] Procedures Procedure Name Priority Date/Time Associated Diagnosis [...] on 05/25/2019 11:28 AM. Workstation Name - [id number] Procedure Note Nadir Isabel DO - 11/21/2022 [...] DO on 05/25/2019 11:28AM. Workstation Name - [id number] Jayden Reyes MD IMG DXA PROCEDURES Final Result from Last 3 Months or Most Recently Relevant to Health Maintenance Advance Directives Documents on File Type Date Recorded Patient Cook Chili Expl anation Health Care Decision (hx) 03/21/2021 AD CARNEY DIRECTIVE Care Teams Detention Officer Relationship Specialty Start Date End Date Hakan Dewitt MD [address] [place] [id number] PCP - General Internal Medicine 12/04/21
--- OUTSIDE RECORDS SUMMARY | 2025-03-15 10:06 | XMS_ITS | Encounter Summary ---
Author Organization [facility] Address [address] [place] [address] Care Team Providers Care Down Filler Name Role Phone Jayden Reyes MD Primary Care Provider Radha sullivan Encounter Details Date Type Department Care Team Description 07/19/2020 Chronic Care Management [address] [address] Shereen Iniguez RN Social History Tobacco Use [...] on filedocumented in this encounter Care Teams Down Filler Relationship Specialty Start Date End Date Jayden Reyes MD PCP - General Internal Medicine 06/17/18 documented as of this encounter
--- OUTSIDE RECORDS SUMMARY | 2025-03-15 10:06 | XMS_ITS | Clinical Summary ---
Author Organization [facility] Address [address] [place] [address] Care Team Providers Care Stock Controller Name Role Phone Jayden Reyes MD Primary [...] from 07/06/2018:Stage IA(pT1a, pN0, cM0, G1, ER+, [place]+, HER2-) - Unsigned Cataract 05/27/2018 Hypertension 05/27/2018 [...] Overview: Added automatically from request for surgery [id number] Left displaced femoral neck fracture 03/24/2020 05/08/2020 [...] medical attention Medical Devices Implanted Type Area Solar Site Assessment Specialist Device Identifier Shelf Expiration Date Model / Serial / Lot Screw Partial Thread 100mm 16mm 7mm Conrad Titanium Josh - [id number] - [id number] Implanted:Qty: 1 on 03/25/2020 by Fabiano Lopez MD at [facility] Left: Hip [employer] 02/14/2028 [id number] / / [id number] Screw Partial Thread 95mm 16mm 7mm Conrad Titanium Bon - [id number] - [id number] Implanted:Qty: 1 on 03/25/2020 by Fabiano Lopez MD at [facility] Left: Hip [employer] 10/23/2028 [id number] / / [id number] Screw Partial Thread 105mm 16mm 7mm Conrad Titanium Josh - [id number] - [id number] Implanted:Qty: 1 on 03/25/2020 by Fabiano Lopez MD at [facility] Left: Hip [employer] 03/24/2029 [id number] / / [id number] Advance Directives For more information, please contact: [phone] Documents on File Type Date Recorded Patient 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 Care Teams Stock Controller Relationship Specialty Start Date End Date Jayden Reyes MD PCP - General Internal Medicine 06/17/18
--- OUTSIDE RECORDS SUMMARY | 2025-03-15 10:06 | XMS_ITS ---
Author Organization [facility] Address [address] [place] [address] Care Team Providers Care Core Filer Name Role Phone Jayden Reyes MD Primary [...] from 07/06/2018:Stage IA(pT1a, pN0, cM0, G1, ER+, [place]+, HER2-) - Unsigned Cataract 05/27/2018 Hypertension 05/27/2018 [...] treatments are documented for this patient in [facility]. Treatments may have been administered in [...] Overview: Added automatically from request for surgery [id number] Left displaced femoral neck fracture 03/24/2020 05/08/2020 [...]
== END 2025-03-15 09:08 | disposition home or self-care (01) ==
LOC: HO.HOSX 09:07
PROVIDERS: Visit Provider Physical Medicine & Rehabilitation
DX: G89.29 Other chronic pain (principal); M54.9 Dorsalgia, unspecified; M25.551 Pain in right hip; M54.41 Lumbago with sciatica, right side; M16.11 Unilateral primary osteoarthritis, right hip
CPT/HCPCS: 72100; 73502; 99202

== ENCOUNTER 2025-04-02 09:10 | Outpatient (AMB) | payer MEDICARE, SELFPAY ==
--- NOTE | 2025-04-02 09:11 | A.OFFVIS_ITS ---
Vital Signs 04/02/25 09:14 Height 4 ft 9 in Weight 91 lb BMI 19.7 BP 192/83 H Blood Pressure Location Lt brachial Position Sitting Respiration 16 Pulse 62 Pulse Source Pulse Oximeter Pulse Oximetry (%) 100 Oxygen Delivery Method Room Air Intake Visit Reasons: osteoarthritis, right hip/intra-articular inj Dowel Machine Operator Required: No Big Data Hadoop Developer: Big Data Hadoop Developer Present Accompanied by: Gideon Freedman Allergies penicillin V Adverse Reaction (Unknown, Verified 04/02/25 09:15) Hives Medication List - Last Reconciled 04/02/25 by Dominique Daniels LPN acetaminophen 500 mg PO QID PRN amlodipine 5 mg PO BID biotin mcg PO pantoprazole 40 mg PO DAILY valsartan-hydrochlorothiazide 160-12.5 mg 1 tab PO DAILY vitamin E (dl, acetate) 450 mg PO QDAY HPI HPI osteoarthritis, right hip/intra-articular inj: Details: History of Present Illness The patient is an 89-year-old female presenting with chronic pain affecting primarily her groin, hip, and lower back. The pain has been ongoing for about 15 years and appears to have an incremental worsening pattern. She reports a stabbing and aching pain involving her groin, specifically noting stiffness in both legs, with prevalent tenderness localized in the left lower back and butt ock region. The right groin pain varies in intensity and shifts location, often leading to numbness. Her pain history is complex, with noted bilateral hip osteoarthritis and chronic lumbar spinal stenosis, conditions not significantly improved with naproxen or epidural injections. She recently initiated Aleve twice daily in response to worsening pain symptoms, with sitting for extended periods aggravating discomfort and exacerbating joint pain. She describes an improvement upon waking which deteriorates as the day progresses, leading to significant interference in her daily activities and sl eep pattern. Sacroiliac joint dysfunction testing has been positive, underpinning the need for multi-faceted therapeutic strategies. Pain Description - Onset and Duration: Chronic pain persisting for approximately 15 years, worsening gradually. - Quality and Character: Stabbing and aching pain. - Primary Location: Groin area and left lower back, extending to buttocks. - Radiation: Pain radiates to both legs, with shifting patterns in the right groin. - Exacerbating Factors: Prolonged sitting over 20 minutes induces groin pain, worsening in the afternoon. - Relieving Factors: Brief relief upon waking in the morning, preference for standing over sitting or laying down. - Interference: Pain impacts sleep quality and daily functional activities. Physical Exam - Musculoskeletal- Positive for pain reproduction on right hip and lumbar motion. Right sacroiliac joint thrust positive. Pain with right femur extension. Pain Management - Affect: Pain severely affects sleep and daily activities. - Analgesia: Current use of Aleve (recently started), previously used naproxen and corticosteroid injection with limited effect. - Adverse Effects: No specific adverse effects noted from current medication. - Activities of Daily Living: Standing is preferred; difficulty with sitting over 20 minutes and laying down. - Aberrant Drug Related Behaviors: None reported. Procedure - Informed consent obtained for hip injection. - Right hip intraarticular injection and right GT injection undertaken under ultrasound guidance. - Procedure involved a 21-gauge needle for injection at the femoral neck. - Kenalog 30 mg into the right hip joint, 10 mg into the right GT bursa. - Patient tolerated the procedure well with no complications reported. 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 Physical Exam Vital Signs: Last Vital Signs Pulse 62 04/02/25 09:14 Resp 16 04/02/25 09:14 BP 192/83 H 04/02/25 09:14 Pulse Ox 100 04/02/25 09:14 Oxygen Delivery Method Room Air 04/02/25 09:14 BMI result Body Mass Index 19.7 Assessment & Plan Assessment & Plan (1) Lumbar spinal stenosis: Code(s): M48.061 - Spinal stenosis, lumbar region without neurogenic claudication Category: Medical (2) Degenerative joint disease of right hip: Code(s): M16.11 - Unilateral primary osteoarthritis, right hip Category: Medical Qualifiers: Osteoarthritis type: primary Qualified Code(s): M16.11 - Unilateral primary osteoarthritis, right hip Plan Plan - Arrange for repeat lumbar spine MRI to evaluate progression of lumbar stenosis and spondylolisthesis. - Continue Aleve/APAP prn for pain control. - Follow up to assess efficacy of recent hip injections. - Potential further therapeutic intervention depending on MRI findings. - Consider sacroiliac joint pain interventions including injections. - Schedule future consultation following MRI to discuss comprehensive pain management. Patient was informed and verbally consented to the use of an ambient scribe for clinic note documentation during this visit. Discussion Notes During our discussion, I reviewed the likely diagnoses contributing to the patient's chronic pain, including bilateral hip osteoarthritis and chronic lumbar conditions such as spondylolisthesis and spinal stenosis. I addressed the limitations of past treatments, including the inadequacy of naproxen and epidural injections in providing long-term relief. For today, we performed a hip injection under ultrasound guidance, which was well-tolerated by the patient. I explained the importance of obtaining a repeat MRI of the lumbar spine to evaluate changes over time and guide further treatment, which may involve additional targeted injections. The patient consented to these plans and is aware of the need for follow-up post-MRI to review results and adjust treatment strategies. Patient Instructions - Schedule and complete MRI of the lumbar spine as directed. - Continue taking Aleve as instructed unless new symptoms occur. - Monitor pain relief from hip injection and report any significant changes. - Contact the office to schedule a follow-up after the MRI to discuss results. - Notify us of any new or worsening symptoms, especially increased leg numbness or weakness. - Engage in activities within comfort but avoid prolonged sitting. Orders: Orders MR lumbar spine wo con 04/02/25 M48.061 - Spinal stenosis, lumbar region without neurogenic claudication Coding Level of Care Code New Pt Level 4 (97970) Diagnoses Lumbar spinal stenosis M48.061 Primary osteoarthritis of right hip M16.11 Osteoarthritis type: primary
[2025-04-02 09:14] VITALS: BP 192/83; PULSE 62; RESP 16; O2SAT 100; BMI 19.7
--- OUTSIDE RECORDS SUMMARY | 2025-04-02 09:47 | XMS_ITS ---
Author Organization [facility] Address [address] [place] [address] Care Team Providers Care Commercial Lines Assistant Name Role Phone Jayden Reyes MD Primary [...] from 07/06/2018:Stage IA(pT1a, pN0, cM0, G1, ER+, [place]+, HER2-) - Unsigned Cataract 05/27/2018 Hypertension 05/27/2018 [...] treatments are documented for this patient in [facility]. Treatments may have been administered in [...] Overview: Added automatically from request for surgery [id number] Left displaced femoral neck fracture 03/24/2020 05/08/2020 [...]
--- OUTSIDE RECORDS SUMMARY | 2025-04-02 09:47 | XMS_ITS | Clinical Summary ---
Author Organization [facility] Address [address] [place] [address] Care Team Providers Care Refueler Name Role Phone Jayden Reyes MD Primary [...] from 07/06/2018:Stage IA(pT1a, pN0, cM0, G1, ER+, [place]+, HER2-) - Unsigned Cataract 05/27/2018 Hypertension 05/27/2018 [...] Overview: Added automatically from request for surgery [id number] Left displaced femoral neck fracture 03/24/2020 05/08/2020 [...] medical attention Medical Devices Implanted Type Area Shredded Filler Hopper Feeder Device Identifier Shelf Expiration Date Model / Serial / Lot Screw Partial Thread 100mm 16mm 7mm Conrad [employer] Josh - [id number] - [id number] Implanted:Qty: 1 on 03/25/2020 by Fabiano Lopez MD at [facility] Left: Hip [employer] 02/14/2028 [id number] / / [id number] Screw Partial Thread 95mm 16mm 7mm Conrad [employer] Bon - [id number] - [id number] Implanted:Qty: 1 on 03/25/2020 by Fabiano Lopez MD at [facility] Left: Hip [employer] 10/23/2028 [id number] / / [id number] Screw Partial Thread 105mm 16mm 7mm Conrad [employer] Josh - [id number] - [id number] Implanted:Qty: 1 on 03/25/2020 by Fabiano Lopez MD at [facility] Left: Hip [employer] 03/24/2029 [id number] / / [id number] Advance Directives For more information, please contact: [phone] Documents on File Type Date Recorded Patient Biochemist Expl 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 Care Teams Refueler Relationship Specialty Start Date End Date Jayden Reyes MD PCP - General Internal Medicine 06/17/18
--- OUTSIDE RECORDS SUMMARY | 2025-04-02 09:48 | XMS_ITS | Encounter Summary ---
Author Organization [facility] Address [address] [place] [address] Care Team Providers Care Systems Engineering Manager Name Role Phone Jayden Reyes MD Primary Care Provider Radha sullivan Encounter Details Date Type Department Care Team Description 07/19/2020 Chronic Care Management [address] [address] Shereen Iniguez RN Social History Tobacco Use [...] on filedocumented in this encounter Care Teams Systems Engineering Manager Relationship Specialty Start Date End Date Jayden Reyes MD PCP - General Internal Medicine 06/17/18 documented as of this encounter
--- OUTSIDE RECORDS SUMMARY | 2025-04-02 09:48 | XMS_ITS | Patient Health Record ---
Author Organization [facility] Address [address] [place] [address] Care Team Providers Care Dedicated Regional Driver Name Role Phone Hakan Dewitt MD Primary Care Provider Unavaila Jerad Roymie Unavailable [phone] Allergies No Known Allergies Reason For Referral [...] Problem Acquired hammer toe of right foot (4711904642305 105) Other hammer toe(s) (acquired), right foot (M20.41) Active confirmed Problem Acquired hammer toe of left foot (4415804724183 103) Other hammer toe(s) (acquired), left foot (M20.42) Active confirmed Problem Plantar wart (73274449) Plantar wart (B07.0) Active confirmed Vital Signs Blood pressure diastolic 64 mm Hg 12/07/2024 Height 4ft9in in 12/07/2024 Blood pressure systolic 130 mm Hg 12/07/2024 Weight 94 lbs 12/07/2024 BMI 20.34 kg/m2 12/07/2024 Procedures Procedure Date Ordered Date Performed Result Body Sit e 23393-Odzb Destruction, 12-1205/11/2024 N/A 70065-Tnty Destruction, 12-1212/07/2024 N/A Encounters Encounter Location Date Provider Diagnosis [facility] [address] 05/11/2024 Ivone Black Plantar wart B07.0 and Pain in left foot M79.[address] [facility] [address] 12/07/2024 Ivone Black Plantar wart B07.0 and [...] Treatment Pending Test Test Name Order Date 61079-Fxea Destruction, 12-1204/14/2021 89815-Rzdf Destruction, 12-1206/16/2021 34148-Pgrw Destruction, 12-1209/22/2021 85545-Lfba Destruction, 12-1205/10/2023 58260-Bhoi Destruction, 12-1205/11/2024 34474-Lvba Destruction, 12-1212/07/2024 Next Appt Details Provider Name:Ivone Ramirez , 05/10/2025 01:30:00 PM, [address] [place], [address], Insurance Providers Payer Name Payer Address Payer Phone Subscriber Number Group Number Insured Name Patient Relationship to Insured Coverage Start Date Coverage End Date Medicare National Govt Svcs Inc [address] [place] [address] [id number] Susie Jeff Self - [facility] [address] [place] [address] [phone] [id number] Susie Jeff Self - patient is the insured Medical (General) History Medical History History ICD Code Back,Hip,and Knee pain High blood pressure Numbness Osteoporosis raynauds disease Warts Measles Mumps Chicken pox Arthritis Surgical History Surgery Date(Month/Year) hysterectomy 11/1989 carpal tunnel surgery 12/2000 rotator cuff tear repair 12/2007
--- OUTSIDE RECORDS SUMMARY | 2025-04-02 09:48 | XMS_ITS | Continuity of Care Document ---
Author Organization [facility] Address [address] [address] Phone Care Team Providers Care Research Assistant Professor Name Role Phone Chris Birmingham MD Unavailable [...] Established 10 Mins [facility], [address] [place] [address], [place], [place], [id number], [place] tel:[phone] [place] - [place] Varicose veins of bilateral lower extremities with pain 9 Valencia Perez. [address] [place] [address], [id number] , [place]. tel: [phone] Referring Provider: Jayden Reyes MD, [address] [place] [address], [id number]. tel:[phone] [facility], [address] [place] [address], [id number], [place] tel:[phone] VR - [place] [facility] No Information 9 Valencia Perez. [address] [place] [address], [id number] , [place]. tel: [phone] Referring Provider: Jayden Reyes MD, [address] [place] [address], [address]. tel:[phone] [facility], [address] [place] [address], [id number], [place] tel:[phone] VR - [place] Varicose veins of right low extrm w oth complications 8 Valencia Perez. [address] [place] [address], [id number] , [place]. tel: [phone] Referring Provider: Jayden Reyes MD, [address] [place] [address], [address]. tel:[phone] [facility], [address] [place] [address], [id number], [place] tel:[phone] VR - [place] Chronic venous hypertension w oth comp of l low extrem 8 Adrian Atwood. [address], [address], [place], [address], [place]. tel: [phone] Referring Provider: Jayden Reyes MD, [address] [place] [address], [id number]. tel:[phone] [facility], [address] [address], [place], [place], [id number], [place] tel:[phone] VR - [facility] No Information 8 Valencia Perez. [address] [place] [address], [id number] , [place]. tel: [phone] Referring Provider: Jayden Reyes MD, [address] [place] [address], [id number]. tel:[phone] [facility], [address] [address], [place], [place], [id number], [place] tel:[phone] VR - [facility] No Information 8 Adriankendra Atwood. [address], [address], [place], [address], [place]. tel: [phone] Referring Provider: Jayden Reyes MD, [address] [place] [address], [facility]. tel:[phone] [facility], [address] [address], [place], [place], [id number], [place] tel:[phone] - [facility] Varicose veins of left lower extremities w oth complications 8 Valencia Perez. [address] [place] [address], [id number] , [place]. tel: [phone] Referring Provider: Jayden Reyes MD, [address] [place] [address], [id number]. tel:[phone] [facility], [address] [place] [address], [id number], [place] tel:[phone] VR - [facility] No Information 8 Valencia Perez. [address] [place] [address], [id number] , [place]. tel: [phone] Referring Provider: Jayden Reyes MD, [address] [place] [address], [address]. tel:[phone] Office/Oupt E&M New Pt 45 Mins [facility], [address] [place] [address], [id number], tel:[phone] [facility] Body mass index (BMI) 19 or less, adultVenous insufficiency (chronic) (peripheral)Va ricose veins of bilateral lower extremities with pain Aug- 8 Valencia SPICER Martha. [address] [place] [address], [id number] , [place]. tel: [phone] Referring Provider: Jayden Reyes MD, [address] [place] [address], [facility]. tel:[phone] [facility], [address] [place] [address], [id number], tel:[phone] [facility] Chronic venous htn w oth comp of bilateral low extrm Aug- 8 Adrian Atwood. [address], [address], [place], [address], [place]. tel: [phone] Referring Provider: Jayden Reyes MD, [address] [place] [address], [facility]. tel:[phone] Family History Family Member Type Diagnosis Age At Onset No Information Payers Payer name Insurance type Covered green party ID Authoriza tily(s) Medicare [place] [id number] Social History Type Description Quantity Date Captured [...]
== END 2025-04-02 10:06 | disposition home or self-care (01) ==
LOC: HO.PMC 09:10
PROVIDERS: PCP Internal Medicine; Referring Provider Physical Medicine & Rehabilitation; Visit Provider Internal Medicine
DX: M48.061 Spinal stenosis, lumbar region without neurogenic claudication (principal); M16.11 Unilateral primary osteoarthritis, right hip
CPT/HCPCS: 20611; 99204

== ENCOUNTER → 2025-04-02 09:10 | Outpatient (BNVA) | payer MEDICARE, SELFPAY | PROVIDERS: Referring Provider Physical Medicine & Rehabilitation; Visit Provider Internal Medicine | DX: M48.061 Spinal stenosis, lumbar region without neurogenic claudication (principal); M16.11 Unilateral primary osteoarthritis, right hip | CPT/HCPCS: 20611; 99202 ==

== ENCOUNTER 2025-04-19 12:50 | Outpatient (REF) | payer MEDICARE, SELFPAY ==
--- NOTE | ~2025-04-19 | MR_ITS ---
EXAMINATION: MR LUMBAR SPINE WITHOUT CONTRAST CLINICAL INFORMATION: Spinal stenosis, lumbar region without neurogenic claudication. COMPARISON: October 07, 2021. TECHNIQUE: MRI of the lumbar spine was obtained using routine sequences without contrast. FINDINGS: Last rib-bearing vertebra labeled T12. Bone marrow STIR signal abnormality in the endplates of L1 and L2 and to a lesser extent L3-4, L4-5 and L5-S1 levels. Multilevel marginal osteophyte formation and disc desiccation and subchondral cyst formation at L1-2 to L5-S1. Grade 1 anterolisthesis L3-4 and L4-5 levels. Grade 1 retrolisthesis, L1-2. Conus medullaris ends at pedicle of L1 with normal signal. S-shaped curvature of the thoracolumbar spine with the dextroconvex curvature of the thoracolumbar junction and levoconvex curvature at the L4-5. T12-L1: No compression upon neural elements. L1-2: [Subarticular and foraminal broad-based herniated disc resulting in left neuroforamina and narrowing. Facet joint and third digits as well as ligamentum flavum. 4 mm hyperintense T2 signal in the right ligamentum flavum. Reduced AP diameter of the thecal sac. L2-3: Broad-based disc bulging. Facet joint and ligamentum flavum hypertrophy. Central spinal canal stenosis and left neuroforamina and stenosis encroaching the neural elements. L3-4: Grade 1 anterolisthesis. Facet joint and ligamentum flavum hypertrophy resulting in CSF effacement of thecal sac central spinal canal and bilateral neuroforamina stenosis, left greater than the right side encroaching probably compressing the neural elements. L4-5: Broad-based disc bulging. Facet joint and ligamentum flavum hypertrophy. CSF effacement of the thecal sac. Central spinal canal and bilateral neuroforamina stenosis likely compressing the neural elements of the thecal sac. L5-S1: Broad-based disc bulging. Facet joint and ligamentum flavum hypertrophy. CSF effacement of the thecal sac. Central spinal canal and bilateral neuroforamina stenosis compressing the neural elements. No prevertebral compartment hematoma, mass or fluid collection. MR/MR lumbar spine wo con IMPRESSION: Multilevel thoracolumbar spondylosis with acute to subacute inflammatory degenerative changes at L1-2 worsened since prior examination and grade 1 anterolisthesis L4-5 L3-4 resulting in multilevel central spinal canal and bilateral neuroforamina stenosis from L3-4 to L5-S1 encroaching probably compressing the neural elements. Electronically signed by: Luis Walker MD 04/19/2025 02:36 PM EDT RP
--- OUTSIDE RECORDS SUMMARY | 2025-04-19 12:58 | XMS_ITS | Clinical Summary ---
Author Organization [facility] Address [address] [place] [address] Care Team Providers Care Bulk System Operator Name Role Phone Jayden Reyes MD Primary Care Provider Radha usllivan Allergies Active Allergy Reactions Criticality Noted Date [...] from 07/06/2018:Stage IA(pT1a, pN0, cM0, G1, ER+, [place]+, HER2-) - Unsigned Cataract 05/27/2018 Hypertension 05/27/2018 [...] Overview: Added automatically from request for surgery [id number] Left displaced femoral neck fracture 03/24/2020 05/08/2020 [...] medical attention Medical Devices Implanted Type Area Php Mysql Developer Device Identifier Shelf Expiration Date Model / Serial / Lot Screw Partial Thread 100mm 16mm 7mm [employer] Josh - [id number] - [id number] Implanted:Qty: 1 on 03/25/2020 by Fabiano Lopez MD at [facility] Left: Hip [employer] 02/14/2028 [id number] / / [id number] Screw Partial Thread 95mm 16mm 7mm [employer] Bon - [id number] - [id number] Implanted:Qty: 1 on 03/25/2020 by Fabiano Lopez MD at [facility] Left: Hip [employer] 10/23/2028 [id number] / / [id number] Screw Partial Thread 105mm 16mm 7mm [employer] Josh - [id number] - [id number] Implanted:Qty: 1 on 03/25/2020 by Fabiano Lopez MD at [facility] Left: Hip [employer] 03/24/2029 [id number] / / [id number] Advance Directives For more information, please contact: [phone] Documents on File Type Date Recorded Patient Rn Charge Expl 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 Care Teams Bulk System Operator Relationship Specialty Start Date End Date Jayden Reyes MD PCP - General Internal Medicine 06/17/18
--- OUTSIDE RECORDS SUMMARY | 2025-04-19 12:58 | XMS_ITS ---
Author Organization [facility] Address [address] [place] [address] Care Team Providers Care Pit And Auxiliaries Supervisor Name Role Phone Hakan Dewitt MD Primary Care Provider Unavaila Ivone Roy Unavailable [phone] Allergies No Known Allergies REASON FOR VISIT [...] an other tobacco user? No Vital Signs Height 4ft9in in 12/07/2024 Weight 94 lbs 12/07/2024 BMI 20.34 kg/m2 12/07/2024 Blood pressure systolic 130 mm Hg 12/07/19 25 Blood pressure diastolic 64 mm Hg 025 Procedures Procedure Date Ordered Date Performed Result Body Sit e 67973-Yckb Destruction, 1-14 12/07/2024 N/A Encounters Encounter Location Date Provider Diagnosis [facility] [address] [place] [address] 12/07/2024 Ivone Ramirez Plantar wart B07.0 and Pain in left foot M79.672 Assessments Encounter Date Diagnosis (ICD Code) Assessment Notes Treatment Notes Treatment Clinical Notes Section Notes 12/07/2024 Plantar wart (ICD-10 - B07.0) 12/07/2024 Pain in left foot (ICD-10 - M79.672) Plan Of Treatment Pending Test Test Name Order Date 34928-Rqtk Destruction, 1-14 12/07/2024 Next Appt Details Follow Up: prn, Reason: Provider Name:Ivone Ramirez , 05/10/2025 01:30:00 PM, [address] [place] [address], [phone], Procedure Notes * Category Sub-Category Detail Notes Wart Treatment Procedure Verrucae were de brided to pin-point bleeding margins with sterile 15 surgical blade, silver nitrate chemocautery applied, recomm. immune-boosting meds such as zinc, recomm. follow up with topical chemosurgical agents, Pt STILL, defers any other forms of tx (94730) Progress Notes * Susie WYNN ADOB:1935 (88 yo F)Acc No.[id number]:12/07/2024 Progress Note Patient:?Susie WYNN Provider:?Ivone Ramirez RYHarry :1935???Age:88 Y???Sex:Female D ate:12/07/2024 Address:[address] [place], [place] [id number] Pcp:Hakan Dewitt MD Subjective: * Chief Complaints: [...] STILL, defers any other forms of tx (67689).? * Procedure Codes:?11347 Wart Destruction, 1-14 * Follow Up:?prn * Images: * Sign off status: Completed true * Provider:?Ivone Ramirez DPM Date:?2024 Generated for Kem garrett/Briana/eTransmitting on:?04/19/2025 12:58 PM EDT History and Physical Notes * HPI [...]
--- OUTSIDE RECORDS SUMMARY | 2025-04-19 12:58 | XMS_ITS | Patient Health Record ---
Author Organization [facility] [place] Address [address] [place] [address] Care Team Providers Care Transformation Analyst Name Role Phone Hakan Dewitt MD Primary Care Provider Unavaila Jerad Roymie Unavailable [phone] Allergies No Known Allergies Reason For Referral [...] Problem Acquired hammer toe of right foot (7877304782639 105) Other hammer toe(s) (acquired), right foot (M20.41) Active confirmed Problem Acquired hammer toe of left foot (0724404649534 103) Other hammer toe(s) (acquired), left foot (M20.42) Active confirmed Problem Plantar wart (75391200) Plantar wart (B07.0) Active confirmed Vital Signs Blood pressure diastolic 64 mm Hg 12/07/2024 Height 4ft9in in 12/07/2024 Blood pressure systolic 130 mm Hg 12/07/2024 Weight 94 lbs 12/07/2024 BMI 20.34 kg/m2 12/07/2024 Procedures Procedure Date Ordered Date Performed Result Body Sit e 22030-Smab Destruction, 12-1205/11/2024 N/A 46338-Tbvm Destruction, 12-1212/07/2024 N/A Encounters Encounter Location Date Provider Diagnosis [facility] [address] 05/11/2024 Ivone Black Plantar wart B07.0 and Pain in left foot M79.[address] [facility] [address] 12/07/2024 Ivone Black Plantar wart B07.0 and [...] Treatment Pending Test Test Name Order Date 63340-Eype Destruction, 12-1204/14/2021 58631-Qikz Destruction, 12-1206/16/2021 61014-Klxy Destruction, 12-1209/22/2021 63426-Crxt Destruction, 12-1205/10/2023 52809-Xkln Destruction, 12-1205/11/2024 70232-Hvbw Destruction, 12-1212/07/2024 Next Appt Details Provider Name:Ivone Ramirez , 05/10/2025 01:30:00 PM, [address] [place], [address], Insurance Providers Payer Name Payer Address Payer Phone Subscriber Number Group Number Insured Name Patient Relationship to Insured Coverage Start Date Coverage End Date Medicare National [employer] [address] [place] [address] [id number] Susie Jeff Self - [facility] [address] [place] [address] [id number] Susie Jeff Self - patient is the insured Medical (General) History Medical History History ICD Code Back,Hip,and Knee pain High blood pressure Numbness Osteoporosis raynauds disease Warts Measles Mumps Chicken pox Arthritis Surgical History Surgery Date(Month/Year) hysterectomy 11/1989 carpal tunnel surgery 12/2000 rotator cuff tear repair 12/2007
--- OUTSIDE RECORDS SUMMARY | 2025-04-19 12:58 | XMS_ITS ---
Author Organization [facility] Address [address] [place] [address] Care Team Providers Care Fiction And Nonfiction Author Name Role Phone Jayden Reyes MD Primary [...] treatments are documented for this patient in [facility]. Treatments may have been administered in [...] Overview: Added automatically from request for surgery [id number] Left displaced femoral neck fracture 03/24/2020 05/08/2020 [...]
--- OUTSIDE RECORDS SUMMARY | 2025-04-19 12:58 | XMS_ITS | Encounter Summary ---
Author Organization [facility] Address [address] [place] [address] Care Team Providers Care Suppression Crew Leader Name Role Phone Jayden Reyes MD Primary Care Provider Radha sullivan Encounter Details Date Type Department Care Team Description 07/19/2020 Chronic Care Management [address] [address] Shereen Iniguez RN Social History Tobacco Use [...] on filedocumented in this encounter Care Teams Suppression Crew Leader Relationship Specialty Start Date End Date Jayden Reyes MD PCP - General Internal Medicine 06/17/18 documented as of this encounter
--- OUTSIDE RECORDS SUMMARY | 2025-04-19 12:58 | XMS_ITS | Clinical Summary ---
Author Organization [facility] Address [address] [place] [address] Care Team Providers Care Bakery Team Leader Name Role Phone Hakan Dewitt MD Primary Care Provider [phone] Surgical History Surgery Date Site/Laterality Comments BREAST LUMPECTOMY 07/06/2018 Right PROCEDURE:BREAST LUMPECTOMY;COMMENT:10:00, Dr. 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 RUTLEDGE 2014 ESOPHAGOGASTRODUODENOSCOPY 05/15/2017 PROCEDURE:ESOPHAGOGASTROD UODENOSCOPY;COMMENT:Dr. Koenig-food impaction removed, moderate esophageal spasms, narrowing distal third of esophagus, moderate diffuse gastritis BREAST BIOPSY 06/06/2018 Right PROCEDURE:BREAST BIOPSY;COMMENT:10:00, IDC w/DCIS, Dr. Crooks, [facility] COLONOSCOPY 08/17/2015 PROCEDURE:COLONOSCOPY;COM MENT:mild ichemic [...] PINNING HIP; Surgeon: Fabiano Lopez MD; Location: [facility]; Service: Orthopedics; Laterality: Left; MASTECTOMY PROCEDURE:MASTECTOMY;COMM ENT:partial left do not use left arm Medical History Medical History Date Comments Osteoporosis DX:Osteoporosis Hypothyroidism DX:Hypothyroidis m Urinary incontinence DX:Urinary incontinence COPD (chronic obstructive pu lmonary disease) [place] [place] [facility] [place] DX:COPD (chronic o bstructive pulmonary disease) ([facility]);COMMENT:DR. SNIDER, PFTS--02/11, FEV1/FVC 55%, FEV1 54% Arthritis of right shoulder region DX:Arthritis of right shoulder region Dementia [place] [place] [facility] DX:Dementia ([facility]);COMMENT:ON ARICEPT--DR. ANA CATES Hypertension DX:Hypertension Allergic rhinitis [...] DX:S/p lef t hip fracture Breast cancer [place] [place] [facility]) DX:Breast cancer ([facility]);COMMENT:ER/OR+' HER2 NEGATIVE, S/P LUMPECTOMY AND RADIATION ON ARIMIDEX Breast cancer [place] [place] [facility] 06/2018 DX:Breast cancer ([facility]);COMMENT:Rght lumpectomy (prev hx of left breast ca) [...] Patients (1 - 1-dose 75+ series) 2011 COVID-19 Vaccine (2023-2 5 season) 2024 Influenza Vaccine (Season Ended) 2025 09/12/2019, 10/19/2018 Pneumococcal Vaccine: 50+ Years Completed 10/19/2018, 11/16/2016 [...] this topic Medical Devices Implanted Type Area Hot Blast Worker Device Identifier Shelf Expiration Date Model / Serial / Lot Screw Partial Thread 100mm 16mm 7mm [employer] Josh - [id number] Implanted:Qty: 1 on 03/25/2020 by Fabiano Lopez MD Left: Hip [employer] 02/14/2028 [id number] / / [id number] Screw Partial Thread 95mm 16mm 7mm [employer] Bon - [id number] Implanted:Qty: 1 on 03/25/2020 by Fabiano Lopez MD Left: Hip [employer] 10/23/2028 [id number] / / [id number] Screw Partial Thread 105mm 16mm 7mm [employer] Josh - [id number] Implanted:Qty: 1 on 03/25/2020 by Fabiano Lopez MD Left: Hip [employer] 03/24/2029 [id number] / / [id number] Advance Directives Documents on File Type Date Recorded Patient Wind Site Manager Expl anation Health Care Decision (hx) 03/21/2021 AD ANGELIKA DIRECTIVE Care Teams Bakery Team Leader Relationship Specialty Start Date End Date Hakan Dewitt MD [address] [place] [address] PCP - General Internal Medicine 12/04/21
--- OUTSIDE RECORDS SUMMARY | 2025-04-19 12:59 | XMS_ITS ---
Author [facility] [place] Address [address] [facility] [place] [address] Care Team Providers Care Section Forest Fire Warden Name Role Phone Hakan Dewitt MD Primary Care Provider Unavaila celina Black, Ivone Unavailable [phone] Allergies No Known Allergies REASON FOR VISIT [...] user? No Vital Signs Height 4ft9in in 05/11/2024 Weight 95 lbs 05/11/2024 BMI 20.56 kg/m2 05/11/2024 Blood pressure systolic 128 mm Hg 05/11/20 24 Blood pressure diastolic 52 mm Hg 024 Procedures Procedure Date Ordered Date Performed Result Body Sit e 24301-Bjat Destruction, 1-14 05/11/2024 N/A Encounters Encounter Location Date Provider Diagnosis [facility] [place] [address] [place] [address] 05/11/2024 Ivone Ramirez Plantar wart B07.0 and Pain in left foot M79.672 Assessments Encounter Date Diagnosis (ICD Code) Assessment Notes Treatment Notes Treatment Clinical Notes Section Notes 05/11/2024 Plantar wart (ICD-10 - B07.0) 05/11/2024 Pain in left foot (ICD-10 - M79.672) Plan Of Treatment Pending Test Test Name Order Date 78014-Fbsw Destruction, -05/11/2024 Next Appt Details Follow Up: prn, Reason: Provider Name:Ivone Ramirez , 05/10/2025 01:30:00 PM, [address] [place] [address], [phone], Procedure Notes * Category Sub-Category Detail Notes Wart Treatment Procedure Verrucae were de brided to pin-point bleeding margins with sterile 15 surgical blade, silver nitrate chemocautery applied, recomm. immune-boosting meds such as zinc, recomm. follow up with topical chemosurgical agents, Pt defers any other forms of tx (99575) Progress Notes * Susie WYNN ADOB:1935 (88 yo F)Acc No.[id number]:05/11/2024 Progress Note Patient:?Susie Wynn A Provider:?Ivone Ramirez DPM :1935???Age:88 Y???Sex:Female D ate:05/11/2024 Address:[address] [place] [address] Pcp:Hakan Dewitt MD Subjective: * Chief Complaints: [...] status: . 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 * Medications:?TakingamLODIPin e Besylate 5 MG [...] Pt defers any other forms of tx (52174).? * Procedure Codes:?29085 Wart Destruction, 1-14 * Follow Up:?prn * Images: * Sign off status: Completed true * Provider:?Ivone Ramirez DPM Date:?2023 Generated for Kem garrett/Briana/eTransmitting on:?04/19/2025 12:58 PM [...]
== END 2025-04-19 12:51 | disposition home or self-care (01) ==
LOC: HO.MRI 12:50
PROVIDERS: PCP Internal Medicine; Visit Provider Internal Medicine
DX: M48.061 Spinal stenosis, lumbar region without neurogenic claudication (principal)
CPT/HCPCS: 72148

== ENCOUNTER → 2025-04-19 12:58 | Outpatient (BNV) | payer MEDICARE, SELFPAY | PROVIDERS: PCP Internal Medicine; Visit Provider Radiology Diagnostic Radiology | DX: M47.815 Spondylosis without myelopathy or radiculopathy, thoracolumbar region (principal); M51.369 Other intervertebral disc degeneration, lumbar region without mention of lumbar back pain or lower extremity pain; M99.63 Osseous and subluxation stenosis of intervertebral foramina of lumbar region | CPT/HCPCS: 72148 ==

== ENCOUNTER 2025-04-30 13:37 | Outpatient (AMB) | payer MEDICARE, SELFPAY ==
[2025-04-30 13:41] VITALS: BP 154/67; PULSE 68; RESP 16; O2SAT 100; BMI 19.7
--- NOTE | 2025-04-30 13:41 | A.OFFVIS_ITS ---
Vital Signs 04/30/25 13:41 Height 4 ft 9 in Weight 91 lb BMI 19.7 BP 154/67 H Blood Pressure Location Lt brachial Position Sitting Respiration 16 Pulse 68 Pulse Source Pulse Oximeter Pulse Oximetry (%) 100 Oxygen Delivery Method Room Air Intake Visit Reasons: Discuss MRI Results Java Golden Gate Developer Required: No Allergies penicillin V Adverse Reaction (Unknown, Verified 04/30/25 13:41) Hives Medication List - Last Reconciled 04/30/25 by Dominique Daniels LPN acetaminophen 500 mg PO QID PRN amlodipine 5 mg PO BID biotin mcg PO pantoprazole 40 mg PO DAILY valsartan-hydrochlorothiazide 160-12.5 mg 1 tab PO DAILY vitamin E (dl, acetate) 450 mg PO QDAY HPI HPI Discuss MRI Results: Details: History of Present Illness The patient is an 89-year-old female presenting with pain management needs due to sacroiliac joint dysfunction. Pain primarily affects the left side of her back with radiation down both legs, causing significant discomfort especially while lying down, thereby disrupting her sleep patterns. She reports abrupt leg cramping upon attempting to get out of bed. Although previous cortisone injections and epidurals offered partial, short-lived relief, the sacroiliac pain remains prominent. Lying down and walking exacerbate the pain, while to pical treatments provide some temporary relief. Despite the presence of neurogenic claudication, it is the sacroiliac joint dysfunction that predominantly impacts her quality of life. This ongoing pain remains despite various interventions, underpinning the patient's intent to seek an optimal pain management strategy to sustain her activity levels and attend an upcoming family event. Pain Description - Onset and Timing: Chronic, with greater severity noted when lying down - Quality: Cramping and shooting, described as bothersome - Primary Location: Left-side back, sometimes involving radiating pain down both legs - Exacerbating Factors: Lying down, ambulation - Relieving Factors: None explicitly successful; history of cortisone provided temporary relief - Interference: Significant impact on sleep, ability to perform daily activities Physical Exam - Musculoskeletal- Positive SI joint compression test, positive GILA due to hip motion limitation, positive tight thrust test Results - Tests and Diagnostics: MRI indicating multilevel degenerative changes and lumbar spinal stenosis at L2-3, L3-4, L4-5 Pain Management - Affect: Pain significantly impacts sleep and daily functioning - Analgesia: Limited efficacy of past cortisone and epidural injections; patient hopes for better pain control - Adverse Effects: Not explicitly noted in current treatment regimen - Activities of Daily Living: Pain restricts sleep and ambulation, she seeks to maintain activity levels, particularly to attend her grandson's wedding - Aberrant Drug-Related Behaviors: No signs of medication misuse reported [facility] Surgical History (Updated 03/15/25 @ 08:51 by CRYSTAL Goldsmith) Hx of shoulder surgery Social History (Updated 03/15/25 @ 08:52 by CRYSTAL Goldsmith) Alcohol intake: never Patient Tobacco Use Status: Never used Tobacco Current occupational status: retired 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 Physical Exam Vital Signs: Last Vital Signs Pulse 68 04/30/25 13:41 Resp 16 04/30/25 13:41 BP 154/67 H 04/30/25 13:41 Pulse Ox 100 04/30/25 13:41 Oxygen Delivery Method Room Air 04/30/25 13:41 BMI result Body Mass Index 19.7 Assessment & Plan Assessment & Plan (1) Lumbar spinal stenosis: Code(s): M48.061 - Spinal stenosis, lumbar region without neurogenic claudication Category: Medical (2) Sacroiliac dysfunction: Code(s): M53.3 - Sacrococcygeal disorders, not elsewhere classified Category: Medical Plan Plan - Schedule diagnostic sacroiliac joint injection to assess pain response followed by a potential cortisone injection - Observe patient?s response post-diagnostic injection and proceed with cortisone if relief is noted - Arrange follow-up to review the efficacy of injections, adjusting management strategies based on patient feedback and relief - Aim to balance activity level improvements, especially for family commitments, against any potential risks of procedures Patient was informed and verbally consented to the use of an ambient scribe for clinic note documentation during this visit. Discussion Notes During the consultation, I explained the likely diagnosis of sacroiliac joint dysfunction and the proposed diagnostic injection process. The anticipated benefit is to determine if injecting a local anesthetic into the joint relieves pain, thereby confirming the diagnosis. I discussed the plan to follow a positive diagnostic injection with a cortisone injection in May, aiming for an enhanced quality of life, especially given her desire to participate in her grandson's wedding in June. The patient understood the diagnostic nature of the first injection, the short duration of the potential relief, and agreed to proceed. Consent was obtained for both the diagnostic and therapeutic interventions. The patient was advised to look for a call scheduling these procedures and to maintain current pain management practices until these are in place. Patient Instructions - Await a call to schedule the diagnostic injection - Monitor the pain relief from the diagnostic injection and report back - Continue using topical solutions as needed for temporary relief - Plan for follow-up based on injection outcomes - Maintain safe levels of activity to avoid exacerbating pain further - Contact medical care manager if there are acute changes in symptoms Coding Level of Care Code Est Pt Level 4 (64642) Diagnoses Lumbar spinal stenosis M48.061 Sacroiliac dysfunction M53.3
--- OUTSIDE RECORDS SUMMARY | 2025-04-30 14:47 | XMS_ITS ---
Author Organization [facility] Address [address] [place] [address] Care Team Providers Care Quality Cloth Tester Name Role Phone Jayden Reyes MD Primary [...] from 07/06/2018:Stage IA(pT1a, pN0, cM0, G1, ER+, MD+, HER2-) - Unsigned Cataract 05/27/2018 Hypertension 05/27/2018 [...] treatments are documented for this patient in [facility]. Treatments may have been administered in another [...] Overview: Added automatically from request for surgery [id number] Left displaced femoral neck fracture 03/24/2020 05/08/2020 [...]
== END 2025-04-30 14:23 | disposition home or self-care (01) ==
LOC: HO.PMC 13:38
PROVIDERS: PCP Internal Medicine; Visit Provider Internal Medicine
DX: M48.061 Spinal stenosis, lumbar region without neurogenic claudication (principal); M53.3 Sacrococcygeal disorders, not elsewhere classified
CPT/HCPCS: 99214

== ENCOUNTER → 2025-04-30 13:37 | Outpatient (BNVA) | payer MEDICARE, SELFPAY | PROVIDERS: PCP Internal Medicine; Visit Provider Internal Medicine | DX: M48.061 Spinal stenosis, lumbar region without neurogenic claudication (principal); M53.3 Sacrococcygeal disorders, not elsewhere classified | CPT/HCPCS: 99212 ==

== ENCOUNTER 2025-05-24 06:24 | Outpatient (REF) | payer MEDICARE, SELFPAY ==
--- NOTE | ~2025-05-24 | FL_ITS ---
EXAMINATION: FL GUIDANCE ONLY HISTORY: M53.3 - Sacrococcygeal disorders, not elsewhere classified COMPARISON: None available. TECHNIQUE: Fluoroscopy time: 0.1 minutes. Cumulative Dose: 1.18 mGy. DAP: 0.22253 mGym2 Images: 3. FINDINGS: Fluoroscopic spot films of the pelvis demonstrate needles in the regions of the bilateral sacroiliac joints. FL/FL guidance in treatment room IMPRESSION: Fluoroscopy during procedure. Please see procedure report for additional information. Electronically signed by: Saulo Cohen MD 05/24/2025 02:47 PM EDT
--- OUTSIDE RECORDS SUMMARY | 2025-05-24 06:26 | XMS_ITS ---
Author Organization [facility] Address [address] [place] [address] Care Team Providers Care Paving Foreman Name Role Phone Jayden Reyes MD Primary [...] from 07/06/2018:Stage IA(pT1a, pN0, cM0, G1, ER+, IA+, HER2-) - Unsigned Cataract 05/27/2018 Hypertension 05/27/2018 [...] treatments are documented for this patient in [facility]. Treatments may have been administered in another [...] Overview: Added automatically from request for surgery [id number] Left displaced femoral neck fracture 03/24/2020 05/08/2020 [...]
== END 2025-05-24 06:25 | disposition home or self-care (01) ==
LOC: CF 06:24
PROVIDERS: Visit Provider Internal Medicine
DX: M53.3 Sacrococcygeal disorders, not elsewhere classified (principal)
CPT/HCPCS: 27096; J2003; J2795

== ENCOUNTER 2025-05-24 12:29 | Outpatient (AMB) | payer MEDICARE, SELFPAY ==
[2025-05-24 12:47] VITALS: BP 130/61; PULSE 68; RESP 16; O2SAT 100; BMI 19.7
--- NOTE | 2025-05-24 12:47 | A.OFFVIS_ITS ---
Vital Signs 05/24/25 12:47 05/24/25 12:48 Height 4 ft 9 in 4 ft 9 in Weight 91 lb 91 lb BMI 19.7 19.7 BP 130/61 185/78 H Blood Pressure Location Lt brachial Lt brachial Position Sitting Sitting Respiration 16 16 Pulse 68 61 Pulse Source Pulse Oximeter Pulse Oximeter Pulse Oximetry (%) 100 100 Oxygen Delivery Method Room Air Room Air Intake Visit Reasons: Erasmo Dx SIJ inj Allergies penicillin V Adverse Reaction (Unknown, Verified 05/25/25 09:53) Hives HPI HPI Erasmo Dx SIJ inj: Details: Patient presents for scheduled procedure. Denies any recent cough, cold, infection, fever or other significant changes in medical history since last office visit. 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 Immediately prior to starting the procedure, a time-out safety check was conducted. The patient's identification, procedure name, procedure site, and procedure laterality were confirmed with the patient. ? Patient was placed prone on the fluoroscopy table and the lumbosacral area was prepped using ChloraPrep and draped with sterile drapein standard fashion. The C-arm was rotated in a contralateral oblique fashion until the medial border of the iliac crest no longer foreshadowed the posterior sacroiliac joint line. The skin and subcutaneous tissue was anesthetized using 1 mL of 0.75% plain lidocaine with 1.5-inch 25-gauge needle in the middle region of the joint line.? A 3.5-inch 22-gauge spinal needle with small bend on the tip was slowly advanced towards the joint line, coaxial to the x-ray beam. Once bony content was obtained, the needle was easily slid into the intra-articular space.? Intra- articular needle position was confirmed using lateral fluoroscopy.? A total volume of 2.5mL of solution containing 0.5% of ropivacaine was injected intra- articularly. The same procedure was done on the other side. The stylet was reinserted and needle was removed. The patient tolerated the procedure well. Patient denied any lower extremity weakness or numbness. Patient was observed for 30 min and was discharged after fulfilling the standard discharge criteria. Coding 21070 - Sacroiliac (Bilateral) Procedure code (CPT) selection complete Assessment & Plan Assessment & Plan (1) Sacroiliac dysfunction: Code(s): M53.3 - Sacrococcygeal disorders, not elsewhere classified Category: Medical Plan Patient is status post bilateral diagnostic sacroiliac joint injections. Patient tolerated procedure well and was discharged home in stable condition with discharge instructions. All questions were answered. We will follow-up via telephone or in clinic to assess response to therapy. A follow-up appointment was made during today's visit. Orders: Orders FL guidance in treatment room 05/24/25 M53.3 - Sacrococcygeal disorders, not elsewhere classified Coding Level of Care Code Procedure Only Diagnoses Sacroiliac dysfunction M53.3 CPT Codes Coding - Joint 9: 89206 - Sacroiliac ([id number])
[2025-05-24 12:48] VITALS: BP 185/78; PULSE 61; RESP 16; O2SAT 100; BMI 19.7
--- OUTSIDE RECORDS SUMMARY | 2025-05-24 14:50 | XMS_ITS ---
Author Organization [facility] Address [address] [place] [address] Care Team Providers Care Supervisor Corduroy Cutting Name Role Phone Jayden Reyes MD Primary [...] from 07/06/2018:Stage IA(pT1a, pN0, cM0, G1, ER+, UT+, HER2-) - Unsigned Cataract 05/27/2018 Hypertension 05/27/2018 [...] treatments are documented for this patient in [facility]. Treatments may have been administered in [...] Overview: Added automatically from request for surgery [id number] Left displaced femoral neck fracture 03/24/2020 05/08/2020 [...]
== END 2025-05-24 13:58 | disposition home or self-care (01) ==
LOC: HO.PMCPRC 12:29
PROVIDERS: PCP Internal Medicine; Visit Provider Internal Medicine
DX: M53.3 Sacrococcygeal disorders, not elsewhere classified (principal)
CPT/HCPCS: 27096

== ENCOUNTER 2025-05-25 09:38 | Outpatient (AMB) | payer MEDICARE, SELFPAY ==
--- NOTE | 2025-05-25 09:50 | MHC.OFFVIS ---
Vital Signs 05/25/25 09:51 Height 4 ft 9 in Weight 89 lb BMI 19.3 BP 162/68 H Blood Pressure Location Lt brachial Position Sitting Respiration 16 Pulse 68 Pulse Source Pulse Oximeter Pulse Oximetry (%) 97 Oxygen Delivery Method Room Air Intake Visit Reasons: increased pain post procedure Captain Room Service Required: No Allergies penicillin V Adverse Reaction (Unknown, Verified 05/25/25 09:53) Hives Medication List - Last Reconciled 05/25/25 by Dominique Daniels LPN acetaminophen 500 mg PO QID PRN amlodipine 5 mg PO BID biotin mcg PO pantoprazole 40 mg PO DAILY valsartan-hydrochlorothiazide 160-12.5 mg 1 tab PO DAILY vitamin E (dl, acetate) 450 mg PO QDAY HPI HPI increased pain post procedure: Details: History of Present Illness The patient is an 89-year-old female presenting with sacroiliac joint pain. She underwent a sacroiliac joint injection which was extremely uncomfortable and did not resolve her pain on the left side. The pain has shifted from the right side to the left side, with the left side now being more painful. The right side, which was originally worse, did improve noticeably following the diagnostic SIJ injection. The patient reports that the pain worsens when she steps on her left leg and radiates to the groin area. She also experiences difficulty focusing her eyes, which she attributes to fatigue, and increased pain when lying down. The patient has a history of multilevel spinal stenosis with compression of neural elements, which may contribute to her symptoms. She has previously had injections in the back, which were not as painful as the recent one. Pain Description - Onset and Timing: Pain shifted from right to left side after injection. - Quality and Character: Extremely uncomfortable pain, worsens with stepping on left leg. - Primary Location: Left sacroiliac joint, radiating to groin area. - Exacerbating Factors: Stepping on left leg, lying down. - Relieving Factors: None discussed. Physical Exam - Appears afebrile. - Alert and oriented. - Mood and affect appropriate. - Follows and participates in conversation appropriately. - Respiratory effort is unlabored. - Able to transition from sit to stand unassisted. - Ambulates with bilaterally normal heel strike and toe off. - Able to stand and walk on toes and heels. Results Pain Management - Affect: Pain is impacting sleep and daily activities. - Analgesia: Current pain management includes tramadol 25 mg as needed. - Adverse Effects: None discussed. - Activities of Daily Living: Pain interferes with walking and sleeping. - Aberrant Drug Related Behaviors: None discussed. 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 Physical Exam Vital Signs: Last Vital Signs Pulse 68 05/25/25 09:51 Resp 16 05/25/25 09:51 BP 162/68 H 05/25/25 09:51 Pulse Ox 97 05/25/25 09:51 Oxygen Delivery Method Room Air 05/25/25 09:51 BMI result Body Mass Index 19.3 Assessment & Plan Assessment & Plan (1) Sacroiliac dysfunction: Code(s): M53.3 - Sacrococcygeal disorders, not elsewhere classified Category: Medical (2) Lumbar spinal stenosis: Code(s): M48.061 - Spinal stenosis, lumbar region without neurogenic claudication Category: Medical (3) Lumbar radiculopathy: Code(s): M54.16 - Radiculopathy, lumbar region Category: Medical Plan Plan - Consideration of an epidural steroid injection for left-sided pain in the future. - Adequate candidate for SI joint therapeutic injection on the right side if pain persists. - Prescription for tramadol 25 mg for temporary pain relief. Patient was informed and verbally consented to the use of an ambient scribe for clinic note documentation during this visit. Discussion Notes I discussed with the patient the potential for an epidural cortisone injection for her left-sided pain and the option of therapeutic SI joint injection on the right side if necessary. We reviewed her MRI findings, which showed multilevel spinal stenosis, and I explained that these abnormalities could be contributing to her pain. I provided a prescription for tramadol to help manage her pain temporarily and advised her to let us know if she wishes to proceed with further interventions. Patient Instructions - Take tramadol 25 mg as needed for pain relief. - Monitor pain levels and report any changes or worsening symptoms. - Consider future interventions if pain persists or worsens. Medications: New tramadol 25 mg (1/2 x 50 mg) PO BID 14 tabs 0RF pain Coding Level of Care Code Est Pt Level 4 (57066) Diagnoses Sacroiliac dysfunction M53.3 Lumbar spinal stenosis M48.061 Lumbar radiculopathy M54.16
[2025-05-25 09:51] VITALS: BP 162/68; PULSE 68; RESP 16; O2SAT 97; BMI 19.3
--- OUTSIDE RECORDS SUMMARY | 2025-05-25 10:08 | XMS_ITS ---
Author Organization [facility] Address [address] [place] [address] Care Team Providers Care Canvas Marker Name Role Phone Jayden Reyes MD Primary [...] from 07/06/2018:Stage IA(pT1a, pN0, cM0, G1, ER+, NV+, HER2-) - Unsigned Cataract 05/27/2018 Hypertension 05/27/2018 [...] treatments are documented for this patient in [facility]. Treatments may have been administered [...] Overview: Added automatically from request for surgery [id number] Left displaced femoral neck fracture 03/24/2020 05/08/2020 [...]
== END 2025-05-25 10:20 | disposition home or self-care (01) ==
LOC: HO.PMC 09:39
PROVIDERS: PCP Internal Medicine; Visit Provider Internal Medicine
DX: M53.3 Sacrococcygeal disorders, not elsewhere classified (principal); M48.061 Spinal stenosis, lumbar region without neurogenic claudication; M54.16 Radiculopathy, lumbar region
CPT/HCPCS: 99214

== ENCOUNTER → 2025-05-25 09:38 | Outpatient (BNVA) | payer MEDICARE, SELFPAY | PROVIDERS: PCP Internal Medicine; Visit Provider Internal Medicine | DX: M53.3 Sacrococcygeal disorders, not elsewhere classified (principal); M48.061 Spinal stenosis, lumbar region without neurogenic claudication; M54.16 Radiculopathy, lumbar region | CPT/HCPCS: 99212 ==

== ENCOUNTER 2025-08-10 08:54 | Outpatient (AMB) | payer MEDICARE, SELFPAY ==
--- NOTE | 2025-08-10 08:57 | A.SPINEOV_ITS ---
Vital Signs 08/10/25 09:00 Height 4 ft 9 in Weight 88 lb BMI 19.0 Intake Visit Reasons: Back pain Intake Note: Ms. Jeff is here today c/o Left sided low back pain. Bushel Girl Required: No Allergies penicillin V Adverse Reaction (Unknown, Verified 08/10/25 09:02) Hives Physical Exam Vital Signs: BMI result Body Mass Index 19.0 Assessment & Plan Assessment & Plan (1) Lumbar spinal stenosis: Code(s): M48.061 - Spinal stenosis, lumbar region without neurogenic claudication Category: Medical Plan Dear colleague Thank you for referring Susie Jeff to the office today with a chief complaint of back pain. HPI: This 89-year-old female has a longstanding history of back pain and bilateral leg pain. The symptoms continued to progress and interfere with the daily activities. She states that the pain radiates across the lumbar spine and down her legs to the outside of the lower leg and feet. The left side is more affected than the right side. The pain can come with walking standing but also with prolonged sitting. Laying down is the worse. She denies numbness or weakness. She takes anti-inflammatories which reduced the pain somewhat. Injections were not effective. PMH: Hypertension, arthritis, osteopenia Medications: Amlodipine, vitamin B12, pantoprazole, valsartan/hydrochlo rothiazide, vitamin-D and calcium. 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 Solid social support. Nonsmoker Physical Exam: Pleasant female. She walks in a flexed position with a normal gait. Straight leg raise is negative. Motor and sensory exam are intact. No pathological reflexes. Radiological Studies: MRI done at [facility] on 04/19/2025 was compared to an MRI of the lumbar spine in 2020 it shows progressive lumbar degenerative disc disease from L1-L5. There is a degenerative scoliosis with the apex at L2-3 and L3-4. There is severe central stenosis L4-5 that significantly progressed since 2020 Impression/Plan: This patient is suffering from back pain and bilateral leg pain with the MRI showing progressive degeneration of the lumbar discs and significant progression of the central L4-5 stenosis which is below the mild scoliotic curve. I think it would be beneficial to do a L4-5 laminotomy, left- sided approach based on the presentation with radiation in an L5. I made her aware that if this does not improve her symptoms other types of surgery are not indicated due to her poor bone quality as this would involve multilevel fusions. She fully understood my explanation wants to proceed. She is tentatively scheduled for 09/06/2025. She will get preoperative clearance from her primary care physician. Thank you for allowing me to participate in your patients care. total time spent was 50 minutes in counseling ,coordination of plan, personal review of imaging, surgical decision making and subsequent plan Giovanni Garcia MD, PhD Spine Fellowship Trained Neurosurgeon Director, [facility] Coding Level of Care Code New Pt Level 4 (39854) Diagnoses Lumbar spinal stenosis M48.061
[2025-08-10 09:00] VITALS: BMI 19.0
--- OUTSIDE RECORDS SUMMARY | 2025-08-10 09:41 | XMS_ITS ---
Author Organization [facility] Address [address] [place] [address] Care Team Providers Care Carbon Dioxide Operator Name Role Phone Jayden Reyes MD [...] treatments are documented for this patient in [facility]. Treatments may have been administered in [...] Overview: Added automatically from request for surgery [id number] Left displaced femoral neck fracture 03/24/2020 05/08/2020 [...]
--- OUTSIDE RECORDS SUMMARY | 2025-08-10 09:42 | XMS_ITS | Encounter Summary ---
Author Organization [facility] Address [address] [place] [address] Care Team Providers Care Fixed Income Director Name Role Phone Jayden Reyes MD Primary Care Provider Radha sullivan Encounter Details Date Type Department Care Team Description 07/19/2020 Chronic Care Management [address] [address] Shereen Iniguez RN Social History Tobacco Use [...] on filedocumented in this encounter Care Teams Fixed Income Director Relationship Specialty Start Date End Date Jayden Reyes MD PCP - General Internal Medicine 06/17/18 documented as of this encounter
--- OUTSIDE RECORDS SUMMARY | 2025-08-10 09:42 | XMS_ITS | Clinical Summary ---
Author Organization [facility] Address [address] [place] [address] Care Team Providers Care Store Leader Name Role Phone Jayden Reyes MD [...] Overview: Added automatically from request for surgery [id number] Left displaced femoral neck fracture 03/24/2020 05/08/2020 [...] 84 03/20/2021 7:48 AM EDT Temperature 37.3 C (99.1 F) 03/20/2021 7:48 AM EDT Respiratory Rate 18 03/20/2021 7:48 AM EDT [...] 05/22/2019, Additional history exists Influenza Vaccine (#1) 2025 09/12/2019, 2017 DTap / Tdap / Td (2 - Td or Tdap) 05/22/2029 05/22/2019 (Declined) Pneumococcal Vaccine Completed 10/19/2018, 11/16/20 16 RSV Ped < 20 months Aged Out No longe r eligible based on patient's age to complete this topic Goals Goal Patient Goal Type Associated Problems Recent Progress Patient-Stated? Author Patient/family will be knowledgeable of s/s to report to QUENTIN, MD BRITTANY Chronic Care Management Shereen Cifuentes RN Note: Family aware (pt with memory issues ), fevers, cough /congestion , increased SOB, wheeze , to call MD or seek medical attention Medical Devices Implanted Type Area Learning Support Services Director Device Identifier Shelf Expiration Date Model / Serial / Lot Screw Partial Thread 100mm 16mm 7mm [employer] Josh - [id number] - [id number] Implanted:Qty: 1 on 03/25/2020 by Fabiano Lopez MD at [facility] Left: Hip [employer] 02/14/2028 [id number] / / [id number] Screw Partial Thread 95mm 16mm 7mm [employer] Bon - [id number] - [id number] Implanted:Qty: 1 on 03/25/2020 by Fabiano Lopez MD at [facility] Left: Hip [employer] 10/23/2028 [id number] / / [id number] Screw Partial Thread 105mm 16mm 7mm [employer] Josh - [id number] - [id number] Implanted:Qty: 1 on 03/25/2020 by Fabiano Lopez MD at [facility] Left: Hip [employer] 03/24/2029 [id number] / / [id number] Advance Directives For more information, please contact: [phone] Documents on File Type Date Recorded Patient Admissions Director Expl 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 Care Teams Store Leader Relationship Specialty Start Date End Date Jayden Reyes MD PCP - General Internal Medicine 06/17/18
--- OUTSIDE RECORDS SUMMARY | 2025-08-10 09:42 | XMS_ITS | Encounter Summary ---
Author Organization [facility] Address [address] [place] [address] Phone Care Team Providers Care Powder Expert Name Role Phone Hakan Dewitt MD Primary Care Provider [phone] Hakan Dewitt MD Unavailable [phone] Encounter Details Date Type Department Care Team (Late st Contact Info) Description 06/21/2020 Orders Only [facility] Medicine [address] [place] [address] [place] [address] Hakan Dewitt MD [address] [place] [address] [email or web address] Social History Tobacco Use Types Packs/Day Years Used Date Smoking Tobacco: Never Smokeless Tobacco: Never Alcohol Use Standard Drinks/Week Comments Yes 4 (1 standard drink = 0.6 oz pur e alcohol) Comments No Sex and Gender Information Value Date Recorded Sex Assigned at Not on file Legal Sex Female 10:14 PM EDT Gender Identity Not on file Sexual Orientation Not on file documented as of this encounter Plan of Treatment Upcoming Encounters Date Type Department Care Team (Late st Contact Info) Description 10/01/2025 10:30 AM EST Office Visit [facility] Rheumatology [address] [place] [address] Geneva Moya MD [address], [address] [place] [address] [email or web address] 10/15/2025 1:30 PM EST Office Visit [facility] [place] Internal Medicine [address] [place] [address] Hakan Dewitt MD [address] [place] [address] [email or web address] documented as of this encounter Procedures Procedure Name Priority Date/Time Associated Diagnosis Comments COMPREHENSIVE METABOLIC PANEL Routine 06/13/2020 25-OH VITAMIN D Routine 06/13/2020 URINALYSIS Routine 06/13/2020 CBC Routine 06/13/2020 TSH Routine 06/13/2020 LIPID PANEL Routine 06/13/2020 documented in this encounter Results * CBC (06/13/2020) Hakan Dewitt MD LAB BLOOD ORDERABLES Edited R esult - Final * Comprehensive metabolic panel (06/13/2020) Hakan Dewitt MD LAB BLOOD ORDERABLES Edited R esult - Final * Lipid panel (06/13/2020) Hakan Dewitt MD LAB BLOOD ORDERABLES Edited R esult - Final * TSH (06/13/2020) us Hakan Dewitt MD LAB BLOOD ORDERABLES Edited R esult - Final * Urinalysis (06/13/2020) Urine Hakan Dewitt MD URINE ORDERABLES Edited Resul t - Final * 25-OH vitamin D (06/13/2020) us Hakan Dewitt MD LAB BLOOD ORDERABLES Edited R esult - Final documented in this encounter Visit Diagnoses Not on filedocumented in this encounter Additional Health Concerns Infection Onset Date Last Indicated Resolved Time CoV-Risk 01/01/2022 01/01/2022 01/02/2022 2:50 PM EST COVID-19 01/01/2022 01/01/2022 01/22/2022 1:21 AM EST Assessment Noted Time PHQ-2 Depression Total Score: 0 03/18/20 20 11:01 AM EDT documented as of this encounter Care Teams Powder Expert Relationship Specialty Start Date End Date Hakan Dewitt MD [address] [place] [address] PCP - General 09/16/17 Hakan Dewitt MD [address] [place] [address] Insurance Assigned Provider 03/04/24 documented as of this encounter Additional Source Comments The information contained in this document represents components of the legal health record. It is not the complete legal health record.[facility]
--- OUTSIDE RECORDS SUMMARY | 2025-08-10 09:43 | XMS_ITS | Patient Health Record ---
Author Organization [facility] [place] Address [address] [place] [address] Care Team Providers Care Sulfate Drier Machine Operator Name Role Phone Hakan Dewitt MD Primary Care Provider Unavaila Ivone Roy Unavailable [phone] Allergies No Known Allergies Reason For Referral No Information Medications Medication SIG (Take, Route, Frequency, Duration) Notes Start Date End Date Status amLODIPine Besylate 5 MG as directed Ora lly Once a day Active Pantoprazole Sodium 20 MG 1 tablet Orall y Once a day Active Valsartan-hydroCHLOROthia zide 160-12.5 MG 1 tablet Orally Once a day Active Fosamax 70 MG 1 tablet 30 minutes before the first food, beverage or medicine of the day with plain water Orally Not-Taking Immunizations Vaccine Route Administration Date Status Comme nts Influenza Unknown 07/30/2024 Administered COVID-19 Pfizer BioNTech Vaccine Unknown 01/03/2021 Administered [...] Problem Acquired hammer toe of right foot (1692427077345 105) Other hammer toe(s) (acquired), right foot (M20.41) Active confirmed Problem Acquired hammer toe of left foot (5488246116119 103) Other hammer toe(s) (acquired), left foot (M20.42) Active confirmed Problem Plantar wart (67331372) Plantar wart (B07.0) Active confirmed Vital Signs Blood pressure diastolic 65 mm Hg 05/10/2025 Height 4ft9in in 05/10/2025 Blood pressure systolic 130 mm Hg 05/10/2025 Weight 90 lbs 05/10/2025 BMI 19.47 kg/m2 05/10/2025 Procedures Procedure Date Ordered Date Performed Result Body Sit e 22593-Nmzh Destruction, 1-14 12/07/2024 N/A 09717-ARCIVDT NAIL, 6 OR MORE 05/10/2025 N/A 20693-Ktzq Destruction, 1-14 05/10/2025 N/A Encounters Encounter Location Date Provider Diagnosis [facility] [address] [address] 12/07/2024 Ivone Black Plantar wart B07.0 a nd Pain in left foot M79.[address] [facility] [address] 05/10/2025 Ivone Black Plantar wart B07.0 ; Pain in left foot M79.672 ; Pain in right toe(s) M79.674 ; Onychomycosis B35.1 and Pain in left toe(s) M79.675 Assessments Encounter Date Diagnosis (ICD Code) Assessment Notes Treatment Notes Treatment Clinical Notes Section Notes 12/07/2024 Plantar wart (ICD-10 - B07.0) 05/10/2025 Plantar wart (ICD-10 - B07.0) 05/10/2025 Pain in left foot (ICD-10 - M79.672) 12/07/2024 Pain in left foot (ICD-10 - M79.672) 05/10/2025 Pain in right toe(s) (ICD-10 - M79.674) 05/10/2025 Onychomycosis (ICD-10 - B35.1) 05/10/2025 Pain in left toe(s) (ICD-10 - M79.675) Plan Of Treatment Pending Test Test Name Order Date [id number] NAIL, 6 OR MORE 05/10/2025 92848-Hdle Destruction, 1-14 04/14/2021 49244-Pqxa Destruction, 1-14 06/16/2021 30844-Lltc Destruction, 1-14 09/22/2021 31923-Bwxd Destruction, 1-14 05/10/2023 66627-Gvil Destruction, -14 05/11/2024 05294-Tiaa Destruction, 1-14 12/07/2024 41908-Qlyv Destruction, 1-14 05/10/2025 Next Appt Details Provider Name:Ivone Ramirez , 09/06/2025 01:00:00 PM, [address] [place], [address], Insurance Providers Payer Name Payer Address Payer Phone Subscriber Number Group Number Insured Name Patient Relationship to Insured Coverage Start Date Coverage End Date Medicare [employer] [address] [place] [address] [id number] Susie Jeff Self - patient is the insured [facility] [address] [place] [address] [id number] Susie Jeff Self - patient is the insured Medical (General) History Medical History History ICD Code Back,Hip,and Knee pain High blood pressure Numbness Osteoporosis raynauds disease Warts Measles Mumps Chicken pox Arthritis Surgical History Surgery Date(Month/Year) hysterectomy 11/1989 carpal tunnel surgery 12/2000 rotator cuff tear repair 12/2007
--- OUTSIDE RECORDS SUMMARY | 2025-08-10 09:44 | XMS_ITS | Clinical Summary ---
Author Organization [facility] Address [id number] [place] [id number] Care Team Providers Care Industrial Engineer Name Role Phone Hakan Dewitt MD Primary Care Provider [phone] Surgical History Surgery Date Site/Laterality Comments BREAST LUMPECTOMY 07/06/2018 Right PROCEDURE:BREAST LUMPECTOMY;COMMENT:10:00, Dr. 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 RUTLEDGE 2014 ESOPHAGOGASTRODUODENOSCOPY 05/15/2017 PROCEDURE:ESOPHAGOGASTROD UODENOSCOPY;COMMENT:Dr. Koenig-food impaction removed, moderate esophageal spasms, narrowing distal third of esophagus, moderate diffuse gastritis BREAST BIOPSY 06/06/2018 Right PROCEDURE:BREAST BIOPSY;COMMENT:10:00, IDC w/DCIS, Dr. Crooks, [facility] COLONOSCOPY 08/17/2015 PROCEDURE:COLONOSCOPY;COM MENT:mild ichemic changes hepatic [...] PINNING HIP; Surgeon: Fabiano Lopez MD; Location: [facility]PER[facility]; Service: Orthopedics; Laterality: Left; MASTECTOMY PROCEDURE:MASTECTOMY;COMM ENT:partial left do not use left arm Medical History Medical History Date Comments Osteoporosis DX:Osteoporosis Hypothyroidism DX:Hypothyroidis m Urinary incontinence DX:Urinary incontinence COPD (chronic obstructive pu lmonary disease) ([facility] V24, [facility] V28) DX:COPD (chronic o bstructive pulmonary disease) ([facility]);COMMENT:DR. SNIDER, PFTS--02/11, FEV1/FVC 55%, FEV1 54% Arthritis of right shoulder region DX:Arthritis of right shoulder region Dementia ([facility] V24, [facility] V28) DX:Dementia ([facility]);COMMENT:ON ARICEPT--DR. ANA CATES Hypertension DX:Hypertension Allergic rhinitis [...] DX:S/p lef t hip fracture Breast cancer ([facility] V24, [facility] V28) DX:Breast cancer ([facility]);COMMENT:ER/TN+' HER2 NEGATIVE, S/P LUMPECTOMY AND RADIATION ON ARIMIDEX Breast cancer ([facility] V24, [facility] V28) 06/2018 DX:Breast cancer ([facility]);COMMENT:Rght lumpectomy (prev hx of left breast ca) [...] Patients (1 - 1-dose 75+ series) 2011 Depression Screening 11/29/2024 COVID-19 Vaccine ( - 2023-2 5 season) 2025 Influenza Vaccine (#1) 2025 , 10/19/2018 Pneumococcal Vaccine: 50+ Years Completed 10/19/2018, [...] this topic Medical Devices Implanted Type Area Hand Shoes Sewer Device Identifier Shelf Expiration Date Model / Serial / Lot Screw Partial Thread 100mm 16mm 7mm [employer] - [id number] Implanted:Qty: 1 on 03/25/2020 by Fabiano Lopez MD Left: Hip [employer] 02/14/2028 [id number] / / [id number] Screw Partial Thread 95mm 16mm 7mm [employer] - [id number] Implanted:Qty: 1 on 03/25/2020 by Fabiano Lopez MD Left: Hip [employer] 10/23/2028 [id number] / / [id number] Screw Partial Thread 105mm 16mm 7mm [employer] - [id number] Implanted:Qty: 1 on 03/25/2020 by Fabiano Lopez MD Left: Hip [employer] 03/24/2029 [id number] / / [id number] Advance Directives Documents on File Type Date Recorded Patient Capping Machine Operator Expl anation Health Care Decision (hx) 03/21/2021 AD ANGELIKA DIRECTIVE Care Teams Industrial Engineer Relationship Specialty Start Date End Date Hakan Dewitt MD [address] [place] [address] PCP - General Internal Medicine 12/04/21
--- OUTSIDE RECORDS SUMMARY | 2025-08-10 09:44 | XMS_ITS | Clinical Summary ---
Author Organization [facility] Address [address] [address] Phone Care Team Providers Care Agriculture Laboratory Technician Name Role Phone Hakan Dewitt MD Primary Care Provider [phone] Hakan Dewitt MD Unavailable [phone] Allergies Active Allergy Reactions Criticality Noted Date Comments Amoxicillin Hives 12/31/2017 Celecoxib Unknown 12/31/2017 Gabapentin Other (See Comments) 09/14/2023 Makes leg cramps worse Lisinopril Cough 12/31/2017 Magnesium GI Upset 09/14/2023 Oxycodone Other (See Comments) Low 06/10/2017 Hallucinations Penicillins Hives 12/31/2017 Tramadol Other (See Comments) Low 11/25/2017 halluncinations Medications vitamin E 400 unit Cap Take 400 Units by mouth daily. Active biotin 5 mg Cap Take 1 (10,000 mcg) tablet once daily. Active calcium carb/D3/magnesium/z inc (CALCIUM CARB-D3-MAG [id number]) [phone] ap-tkel-lw-mg Tab Take 1 tablet by mouth daily. Active Lactobacillus rhamnosus GG (PROBIOTIC DIGESTIVE CARE ORAL) Take 1 capsule by mouth daily. Active amLODIPine (NORVASC) 5 MG tabletIndications:E ssential hypertension TAKE 1 TABLET(5 MG) BY MOUTH TWICE DAILY 180 tablet 3 4 Active naphazo HCl-hpm-ps 80-Zn sulf (CLEAR EYES COMPLETE) 0.025-0.2-0.5 % Drop Apply 1 drop in each eye to eye 2 (two) times a day as needed. Active valsartan-hydroCHLO ROthiazide (DIOVAN-HCT) 160-12.5 mg per tabletIndications:E ssential hypertension TAKE 1 TABLET BY MOUTH DAILY 90 tablet 2 5 Active naproxen sodium (ALEVE) 220 MG tablet Take 220 mg by mouth 3 (three) times a day. Active pantoprazole (PROTONIX) 40 MG tabletIndications:G astroesophageal reflux disease without esophagitis Take 1 tablet (40 mg total) by mouth daily. 90 tablet 3 5 Active traMADoL (ULTRAM) 50 mg tablet Take 25 mg by mouth 2 (two) times a day as needed. 5 Active traMADoL (ULTRAM) 50 mg tabletIndications:P rimary osteoarthritis involving multiple joints 0.5 tab nightly for severe pain 7 tablet 5 Active pramipexole (MIRAPEX) 0.5 MG tabletIndications:N octurnal leg cramps TAKE 1 TABLET BY MOUTH EVERY NIGHT AT BEDTIME 90 tablet 3 5 Active Active Problems Problem Noted Date Diagnosed Date Thrombocytopenia 04/03/2024 Other insomnia 02/11/2024 Assessment & Plan (07/01/2025 12:24 PM EDT): I reviewed with her principles of sleep hygiene and encouraged her to listen to relaxation tapes of her choice every night and every time she wakes up x 4 months and meditate twice daily as she does. Assessment & Plan (02/11/2024 10:13 AM EDT): I reviewed with her principles of sleep hygiene and encouraged her to listen to relaxation tapes of her choice every night and every time she wakes up x 4 months and meditate twice daily as she does. Acute pain of right shoulder 01/12/2024 Assessment & Plan (01/12/2024 3:19 PM EST): Trauma to the right shoulder with persisting subsequent shoulder pain, patient counseled Ortho versus physical therapy, would like to see orthopedist. And her vicinity Dr. Tushar Jaeger can see here at [facility]. Imaging was done at [facility]. Patient counseled about frozen shoulder, to keep moving, using ibuprofen for first-line pain treatment and then use the tramadol 3 times daily as needed if ibuprofen not effective. Rotator cuff arthropathy, right 03/03/2023 Assessment & Plan (02/11/2024 10:12 AM EDT): I reviewed with Ssuie benefits and possible risks of guided intra-articular injection into her shoulders and we both agreed that she has tried no interventional strategies by using topical ice and warm packs, resting and taking pain medication that did not provide enough benefit so she is unable to sleep at night and cannot do what she wants to do. She promised to call her orthopedic surgeon to schedule the if injections. I have shown her in the office gentle pendulum and climbing wall exercises to be done after warm pack gradually increasing the number of repetitions to her tolerance. Assessment & Plan (03/21/2023 9:44 AM EDT): Procedure: After an informed oral consent, under sterile conditions using Ethyl chloride spray for local anesthesia I have injected 40 mg Kenalog and 2 cc 1% Lidocaine into Right shoulder from anterior approach uneventfully. Details of post-procedure care were explained to the patient in the office and given in writing. Provider: Geneva Moya MD Patient: Susie Jeff : 1935 Date: 03/03/2023 Peripheral vascular disease 12/17/2020 Rotator cuff arthropathy, left 12/04/2020 Assessment & Plan (12/06/2020 9:00 PM EST): Avoid heavy lifting, repetitive pulling or pushing with arms. Use warm pack versus warm shower prior to gentle, regular exercise routine. Examples of exercises shown in the office and printed instructions with pictures for home use. Acute cystitis without hematuria 11/18/2020 Assessment & Plan (11/18/2020 5:07 PM EST): The symptoms suggest a cystitis possibly urethritis, obtain urine culture with sensitivity and urinalysis. We will treat empirically with Macrobid since this might not affect the bacterial suad of the vagina as much. Doubt pyelonephritis.. BV (bacterial vaginosis) 11/18/2020 Assessment & Plan (11/18/2020 5:03 PM EST): Vaginosis could be treated with MetroGel for 5 days 5 g each night with an applicator. If this is not adequate we will refer to RD MECHANICAL ENGINEER's for pelvic exam. Hyperuricemia 12/06/2019 Assessment & Plan (12/27/2019 8:12 AM EST): Proper hydration. Low purine diet. The goal is to keep uric acid <6 mg % Trochanteric bursitis of left hip 06/05/2019 Assessment & Plan (05/30/2025 11:31 AM EDT): Procedure: After an informed oral consent, under sterile conditions using Ethyl chloride spray for local anesthesia I have injected 40 mg DepoMedrol and 2 cc 1% Lidocaine into Left trochanteric bursa uneventfully. Details of post-procedure care were explained to the patient in the office and given in writing. Assessment & Plan (07/31/2021 10:21 AM EDT): Procedure: After an informed oral consent, under sterile conditions using Ethyl chloride spray for local anesthesia I have injected 40 mg DepoMedrol and 2 cc 1% Lidocaine into Left trochanteric bursa uneventfully. Details of post-procedure care were explained to the patient in the office and given in writing. Assessment & Plan (05/30/2020 9:20 AM EDT): Procedure: After an informed oral consent, under sterile conditions using Ethyl chloride spray for local anesthesia I have injected 40 mg DepoMedrol and 2 cc 1% Lidocaine into Left trochanteric bursa uneventfully. Details of post-procedure care were explained to the patient in the office and given in writing. Assessment & Plan (06/05/2019 10:12 AM EDT): Procedure: After an informed oral consent, under sterile conditions using Ethyl chloride spray for local anesthesia I have injected 40 mg DepoMedrol and 2 cc 1% Lidocaine into Left trochanteric bursa uneventfully. Details of post-procedure care were explained to the patient in the office and given in writing. Osteopenia of multiple sites 12/21/2018 Assessment & Plan (02/11/2024 10:01 AM EDT): Carefully continue daily calcium vitamin D as instructed. Off Fosamax due to taking it > 5 yrs Continue daily weightbearing exercises. Fall and fracture prevention strategies reviewed. Assessment & Plan (07/13/2022 10:09 AM EDT): Carefully continue daily calcium vitamin D as instructed. Off Fosamax due to taking it > 5 yrs Continue daily weightbearing exercises. Fall and fracture prevention strategies reviewed. Assessment & Plan (12/10/2021 9:58 AM EST): Carefully continue weekly Fosamax along with daily calcium vitamin D as instructed. Continue daily weightbearing exercises. Fall and fracture prevention strategies reviewed. Assessment & Plan (12/04/2020 9:13 AM EST): Carefully continue weekly Fosamax along with daily calcium vitamin D as instructed. Continue daily weightbearing exercises. Fall and fracture prevention strategies reviewed. Assessment & Plan (07/11/2020 11:01 AM EDT): Carefully continue weekly Fosamax along with daily calcium vitamin D as instructed. Continue daily weightbearing exercises. Fall and fracture prevention strategies reviewed. Assessment & Plan (05/30/2020 9:20 AM EDT): Carefully continue weekly Fosamax along with daily calcium vitamin D as instructed. Continue daily weightbearing exercises. Fall and fracture prevention strategies reviewed. Assessment & Plan (12/06/2019 10:34 AM EST): Carefully continue weekly Fosamax along with daily calcium vitamin D as instructed. Continue daily weightbearing exercises. Fall and fracture prevention strategies reviewed. Assessment & Plan (06/05/2019 9:43 PM EDT): Carefully continue weekly Fosamax along with daily calcium vitamin D as instructed. Continue daily weightbearing exercises. Fall and fracture prevention strategies reviewed. Gastroesophageal reflux disease without esophagi tis 12/21/2018 Assessment & Plan (05/30/2025 11:33 AM EDT): Avoid late, large, spicy meals. Keep headboard elevated at 45 angle for nighttime. Assessment & Plan (03/03/2023 10:07 AM EDT): Avoid late, large, spicy meals. Keep headboard elevated at 45 angle for nighttime. Assessment & Plan (07/13/2022 10:08 AM EDT): Avoid late, large, spicy meals. Keep headboard elevated at 45 angle for nighttime. Assessment & Plan (12/04/2020 9:14 AM EST): Avoid late, large, spicy meals. Keep headboard elevated at 45 angle for nighttime. Assessment & Plan (07/11/2020 11:00 AM EDT): Avoid late, large, spicy meals. Keep headboard elevated at 45 angle for nighttime. Assessment & Plan (05/30/2020 9:21 AM EDT): Avoid late, large, spicy meals. Keep headboard elevated at 45 angle for nighttime. Assessment & Plan (12/06/2019 10:32 AM EST): Avoid late, large, spicy meals. Keep headboard elevated at 45 angle for nighttime. Assessment & Plan (06/05/2019 9:43 PM EDT): Avoid late, large, spicy meals. Keep headboard elevated at 45 angle for nighttime. Vitamin D insufficiency 12/21/2018 Assessment & Plan (07/01/2025 12:22 PM EDT): Continue daily supplementation to optimize serum level around 40-45 ng/ml. Osteoporosis 01/04/2018 Chronic bilateral low back pain without sciatica 01/04/2018 Essential hypertension 01/04/2018 Foraminal stenosis of cervical region 01/04/2018 Musculoskeletal disorder of neck 01/04/2018 Neck pain 01/04/2018 Primary osteoarthritis involving multiple joints 01/04/2018 Assessment & Plan (05/30/2025 10:45 AM EDT): Joint protection, energy conservation. Gentle, regular exercise routine. Avoid falls, injuries, overuse. She may benefit from topical cream such as Arnica, Biofreeze, Aspercreme versus medicated patches such as salonpas, icy hot patch 2-3 times daily and if necessary at bedtime x 3 weeks. Assessment & Plan (02/11/2024 10:00 AM EDT): Joint protection, energy conservation. Gentle, regular exercise routine. Avoid falls, injuries, overuse. She may benefit from topical cream such as Arnica, Biofreeze, Aspercreme versus medicated patches such as salonpas, icy hot patch 2-3 times daily and if necessary at bedtime x 3 weeks. Assessment & Plan (03/03/2023 10:09 AM EDT): Joint protection, energy conservation. Gentle, regular exercise routine. Avoid falls, injuries, overuse. She may benefit from topical cream such as Arnica, Biofreeze, Aspercreme versus medicated patches such as salonpas, icy hot patch 2-3 times daily and if necessary at bedtime x 3 weeks. Assessment & Plan (07/13/2022 10:08 AM EDT): Joint protection, energy conservation. Gentle, regular exercise routine. Avoid falls, injuries, overuse. Procedure: After an informed oral consent, under sterile conditions using Ethyl chloride spray for local anesthesia I have injected 40 mg DepoMedrol and 2 cc 1% Lidocaine into Right shoulder from posterior approach uneventfully. Details of post-procedure care were explained to the patient in the office and given in writing. Provider: Geneva Moya MD Patient: Susie Jeff : 1935 Date: 07/13/2022 Assessment & Plan (12/10/2021 10:21 AM EST): Joint protection, energy conservation. Gentle, regular exercise routine. Avoid falls, injuries, overuse. Keep body weight in ideal range for his height. He may benefit from topical cream such as Arnica, Biofreeze, Aspercreme versus medicated patches such as salonpas, icy hot patch 2-3 times daily and if necessary at bedtime x 3 weeks. Procedure: After an informed oral consent, under sterile conditions using Ethyl chloride spray for local anesthesia I have injected 40 mg DepoMedrol and 1 cc 1% Lidocaine into Left shoulder from anterior approach uneventfully. Details of post-procedure care were explained to the patient in the office and given in writing. Provider: Geneva Moya MD Patient: Susie Jeff : 1935 Date: 12/10/2021 Assessment & Plan (07/31/2021 10:21 AM EDT): Carefully continue Tylenol arthritis pain relief 650 mg every 8 hours as needed. Get labs monitoring safety today. Joint protection, energy conservation. Gentle, regular exercise routine. Avoid falls, injuries, overuse. Topical cream versus patch as needed: Try capsaicin cream toward the left sided shoulder and neck prior to bed rest x 3 weeks. Consider local steroid injection if worse or not better. Assessment & Plan (12/04/2020 9:13 AM EST): Carefully continue Tylenol arthritis pain relief 650 mg every 8 hours as needed. Get labs monitoring safety today. Joint protection, energy conservation. Gentle, regular exercise routine. Avoid falls, injuries, overuse. Topical cream versus patch as needed: Try capsaicin cream toward the left sided shoulder and neck prior to bed rest x 3 weeks. Consider local steroid injection if worse or not better. Assessment & Plan (06/05/2019 9:42 PM EDT): Joint protection, energy conservation. Gentle, regular exercise routine. Avoid falls, injuries, overuse. Topical cream versus patch as needed. Consider local steroid injection if worse or not better. Pure hypercholesterolemia 01/04/2018 Raynaud's phenomenon 01/04/2018 Assessment & Plan (05/30/2025 10:45 AM EDT): Keep warm, dress in layers. Optimize stress management strategies. Avoid vasoconstrictors in OTC products for cold/flu and sinus. Assessment & Plan (02/11/2024 10:01 AM EDT): Keep warm, dress in layers. Optimize stress management strategies. Avoid vasoconstrictors in OTC products for cold/flu and sinus. Assessment & Plan (03/03/2023 10:07 AM EDT): Keep warm, dress in layers. Optimize stress management strategies. Avoid vasoconstrictors in OTC products for cold/flu and sinus. Assessment & Plan (12/10/2021 9:58 AM EST): Keep warm, dress in layers. Optimize stress management strategies. Avoid vasoconstrictors in OTC products for cold/flu and sinus. Assessment & Plan (07/31/2021 10:21 AM EDT): Keep warm, dress in layers. Optimize stress management strategies. Avoid vasoconstrictors in OTC products for cold/flu and sinus. Assessment & Plan (12/04/2020 9:13 AM EST): Keep warm, dress in layers. Optimize stress management strategies. Avoid vasoconstrictors in OTC products for cold/flu and sinus. Assessment & Plan (07/11/2020 11:01 AM EDT): Keep warm, dress in layers. Optimize stress management strategies. Avoid vasoconstrictors in OTC products for cold/flu and sinus. Assessment & Plan (05/30/2020 9:20 AM EDT): Keep warm, dress in layers. Optimize stress management strategies. Avoid vasoconstrictors in OTC products for cold/flu and sinus. Assessment & Plan (12/06/2019 10:34 AM EST): Keep warm, dress in layers. Optimize stress management strategies. Avoid vasoconstrictors in OTC products for cold/flu and sinus. Assessment & Plan (06/05/2019 9:43 PM EDT): Keep warm, dress in layers. Optimize stress management strategies. Avoid vasoconstrictors in OTC products for cold/flu and sinus. Resolved Problems Problem Noted Date Diagnosed Date Resolved Date longterm use of alendronate therapy (Fosamax) 07/11/2020 03/03/2023 Assessment & Plan (12/10/2021 10:01 AM EST): Take exactly as prescribed. Keep well-hydrated. Return for labs monitoring safety at least every 3 months as requested. Check with pharmacy when did you get 1st Fosamax prescription filled if ~ 5 yrs stop taking at 5th anniversary. Assessment & Plan (07/31/2021 10:22 AM EDT): Take exactly as prescribed. Keep well-hydrated. Return for labs monitoring safety at least every 3 months as requested. Assessment & Plan (12/04/2020 9:14 AM EST): Take exactly as prescribed. Keep well-hydrated. Return for labs monitoring safety at least every 3 months as requested. Assessment & Plan (07/14/2020 12:05 PM EDT): Take exactly as prescribed. Keep well-hydrated. Return for labs monitoring safety at least every 3 months as requested. 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 Remember to take it always with food. Favor topical over oral preparations. Assessment & Plan (12/06/2019 10:33 AM EST): Take the lowest dose, with least frequency, for shortest time. Remember to take it always with food. Favor topical over oral preparations. Assessment & Plan (06/05/2019 9:44 PM EDT): Take the lowest dose, with least frequency, for shortest time. Remember to take it always with food. Favor topical over oral preparations. Osteoarthritis involving mul tiple joints on both sides of body 01/04/2018 12/10/2021 Assessment & Plan (07/14/2020 12:07 PM EDT): Carefully continue Tylenol arthritis pain relief 650 mg every 8 hours as needed. Get labs monitoring safety today. Joint protection, energy conservation. Gentle, regular exercise routine. Avoid falls, injuries, overuse. Topical cream versus patch as needed: Try capsaicin cream toward the left sided shoulder and neck prior to bed rest x 3 weeks. Consider local steroid injection if worse or not better. Get yearly flu vaccine by mid 2019 Assessment & Plan (05/30/2020 9:38 AM EDT): Carefully continue naproxen 1-2 tablets daily with food. Get labs monitoring safety today. Joint protection, energy conservation. Gentle, regular exercise routine. Avoid falls, injuries, overuse. Topical cream versus patch as needed. Consider local steroid injection if worse or not better. Assessment & Plan (12/06/2019 10:31 AM EST): Joint protection, energy conservation. Gentle, regular exercise routine. Avoid falls, injuries, overuse. Topical cream versus patch as needed. Consider local steroid injection if worse or not better. Procedure: After an informed oral consent, under sterile conditions using Ethyl chloride spray for local anesthesia I have injected 40 mg DepoMedrol and 2 cc 1% Lidocaine into Left shoulder from anterior approach uneventfully. Details of post-procedure care were explained to the patient in the office and given in writing. Encounters Date Type Department Care Team Description 07/10/2025 Refill [facility] Internal Medicine [address] [place] [address] Hakan Dewitt MD Medication Refill 06/04/2025 Telephone [facility] [address] [place] [address] Hakan Dewitt MD Triage (Red-severe back and hip pain) 05/30/2025 10:30 AM EDT Office Visit [facility] Rheumatology [address] [place] [address] Geneva Moya MD Primary osteoarthritis involving multiple joints (Primary Dx); Raynaud's phenomenon without gangrene; Vitamin D insufficiency; Gastroesophageal reflux disease without esophagitis; Other insomnia; Trochanteric bursitis of left hip from Last 3 Months Immunizations Immunization Administration Dates Next Due COVID-19 (Pre-09/20) Pfizer Vaccine, mRNA, PF 01/24/2021,01/03/2021 INFLUENZA, SPLIT VIRUS, TRIV ALENT W/ PRESERVATIVE IM 09/05/2014,12/09/2012 Influenza High-Dose Quadriva lent Preservative Free IM 08/24/2023,09/02/2021,09/24/2020 Influenza High-Dose Trivalen t Preservative Free IM 08/22/2024,10/18/2019,08/31/2018,09/11,10/16/2015 Influenza Quadrivalent Adjuv anted Preservative Free IM 09/09/2022 Influenza Trivalent Adjuvant ed Preservative free IM 09/12/2019,10/19/2018 Influenza, Unspecified Formulation 08/31/2018 Pneumococcal conjugate PCV13 12/08/2016,11/16/20 16,01/15/2015 Pneumococcal polysaccharide PPSV23 10/19/2018, Zoster live 01/15/2015 Family History Medical History Relation Comments Diabetes Father Stroke Mother Diabetes Sister Thyroid disease Sister Relation Status Comments Father Mother Sister Social History Tobacco Use Types Packs/Day Years Used Date Smoking Tobacco: Never Smokeless Tobacco: Never Tobacco Cessation:Counseling Given: Not Answered Alcohol Use Standard Drinks/Week Comments Yes 0 (1 standard drink = 0.6 oz pur e alcohol) Education Answer Date Recorded Are you interested in more education? Not on irasema e 03/26/2023 Are you concerned about learning? Not on file 03/26/2023 No 03/26/2023 No 03/26/2023 Digital Access Answer Date Recorded No 04/23/2023 No 04/23/2023 Reliable internet access at home? Not on file 04/23/2023 Device with a working camera? Not on file Intimate Partner Violence Answer Date R ecorded Denied Basic Needs Not on file 10/09/2024 In the past 12 months have y ou been in a relationship with a person who hurts, threatens, or tries to control you? No 10/09/2024 Worried food would run out Not on file 10/09 In the past 12 months have y ou been in a relationship with a person who hurts, threatens, or tries to control you? No 10/09/2024 Comments No Sex and Gender Information Value Date Recorded Sex Assigned at Not on file Legal Sex Female 10:14 PM EDT Gender Identity Not on file Sexual Orientation Not on file Last Filed Vital Signs Vital Sign Reading Time Taken Comments Blood Pressure 140/58 05/30/2025 10:38 AM EDT Pulse 62 05/30/2025 10:38 AM EDT Temperature 36.5 C (97.7 F) 04/10/2025 8:54 AM EDT Respiratory Rate 16 10/09/2024 8:59 AM EST Oxygen Saturation 99% 05/30/2025 10:38 AM EDT Inhaled Oxygen Concentration - - Weight 41 kg (90 lb 6.4 oz) 05/30/2025 10:38 AM EDT Height 143.8 cm (4' 8.61 ) 05/30/2025 10:38 AM E DT Body Mass Index 19.83 05/30/2025 10:38 AM EDT Plan of Treatment Upcoming Encounters Date Type Department Care Team (Late st Contact Info) Description 10/01/2025 10:30 AM EST Office Visit [facility] Rheumatology [address] [place] [id number] Geneva Moya MD [address] [facility] [place], [address] [place] [address] [email or web address] 10/15/2025 1:30 PM EST Office Visit [facility] Internal Medicine [address] [place] [address] Hakan Dewitt MD [address] [place] [address] Health Maintenance Due Date Last Done Comments Adult Td,Tdap Booster 1935 RSV VACCINE (1 - 1-dose 75+ series) 2011 ZOSTER VACCINES (2 of 3) 03/12/2015 01/15/2015 INFLUENZA VACCINE (#1) 2025 , 08/24/2023, 08/23/2023, Additional history exists COVID-19 VACCINE ( season) 2025 08/29/2024, 09/03/2023, 09/27/2022, Additional history exists DEPRESSION SCREENING 10/09/2025 10/09/2024 CREATININE LEVEL 04/10/2026 04/10/2025, 09/2024, 04/03/2024, Additional history exists POTASSIUM LEVEL 04/10/2026 04/10/2025, 09/29, 04/03/2024, Additional history exists PNEUMOCOCCAL VACCINES (50+ years) Completed 10/19/2018, 12/08/2016, 11/16/2016, Additional history exists OSTEOPOROSIS SCREENING INITIAL (ONE-TIME) Completed 06/16/2021, 03/07/2019, 12/25/2016 HEPATITIS A VACCINES Aged Out No long er eligible based on patient's age to complete this topic HIB VACCINES Aged Out No longer eligi ble based on patient's age to complete this topic MENINGOCOCCAL VACCINES (ACWY) Aged Out No longer eligible based on patient's age to complete this topic MENINGOCOCCAL VACCINES (B) Aged Out N o longer eligible based on patient's age to complete this topic Medical Devices Not on file Procedures Procedure Name Priority Date/Time Associated Diagnosis Comments COMPREHENSIVE METABOLIC PANEL Routine 04/10/2025 9:48 AM EDT Benign essential hypertension Gastroesophageal reflux disease, unspecified whether esophagitis present BD DXA AXIAL (SPINE) WITH HIP Routine 06/16/2021 10:27 AM EDT Osteopenia longterm use of alendronate therapy (Fosamax) from Last 3 Months or Most Recently Relevant to Health Maintenance Results * (ABNORMAL) Comprehensive metabolic panel (04/10/2025 9:48 AM EDT) SODIUM 137 133 - 146 mmol/L [facility] POTASSIUM 4.2 3.3 - 5.1 mmol/L [facility] CHLORIDE 101 96 - 108 mmol/L [facility] CO2 23 21 - 35 mmol/L [facility] BUN 34(H) 6 - 19 mg/dL [facility] CREATININE 0.80 0.5 - 1.5 mg/dL [facility] GLUCOSE 88 70 - 99 mg/dL [facility] ALBUMIN 4.2 3.9 - 4.8 g/dL [facility] TOTAL PROTEIN 7.2 6.5 - 8.0 g/dL [facility] CALCIUM 9.7 8.4 - 10.3 mg/dL [facility] ALKALINE PHOSPHATASE 76 39 - 117 U/L [facility] TOTAL BILIRUBIN 0.7 0.0 - 1.2 mg/dL [facility] AST 21 0 - 37 U/L [facility] ALT 13 0 - 40 U/L [facility] GLOBULIN 3.0 1 - 4.8 g/dL [facility] EGFR 71 >59 mL/min/1.7 3m2 [facility] Comment:Estimated glomerular filtration rate calculated using the CKD-EPI refit equation. ANION GAP 17 10 - 20 mmol/L [facility] Blood 04/10/2025 9:48 AM EDT 04/10/2025 9:52 AM EDT us Hakan Dewitt MD LAB BLOOD ORDERABLES Final Re sult Performing Organization Address City/State/[facility] Co de Phone Number [address] [address] * BD DXA AXIAL (SPINE) WITH HIP (06/16/2021 10:27 AM EDT) Anatomical Region Laterality Modality Bone Density Bone Density 06/16/2021 10:2 8 AM EDT Impressions 06/16/2021 10:31 AM EDT Findings again consistent with osteopenia. No statistically significant changes from 03/07/2019. Narrative 06/16/2021 10:31 AM EDT This is a 85-year-old female with a history of osteopenia. Compared with the prior study dated 03/07/2019. The evaluation of the lumbar spine is felt to be unreliable due to sclerotic degenerative endplate changes at multiple levels. Evaluation of the left forearm and both hips is obtained and appears technically adequate. The left forearm discloses a total bone mineral density of 0.453 g/cm2 with a T- score of -2.2. Z score 1.6 This is in the osteopenia range. No statistically significant change from 03/07/2019. The right hip (total) has a total bone mineral density of 0.732 g/cm2 with a T-score of -1.7. Z score 0.6. This is in the osteopenia range. No statistically significant change from 03/07/2019. The right hip (neck) has a total bone mineral density of 0.705 g/cm2 with a T- score of -1.3. Z score 1.2. The left hip (total) has a total bone mineral density of 0.720 g/cm2 for a T- score of -1.8. Z score 0.5. This is in the osteopenia range. No statistically significant change from 03/07/2019. The left hip (neck) has a total bone mineral density of 0.650 g/cm2 with a T- score of -1.8. Z score 0.7. Procedure Note Jayden Varela MD - 06/16/2021 This is a 85-year-old female with a history of osteopenia. Compared with the prior study dated 03/07/2019. The evaluation of the lumbar spine is felt to be unreliable due tosclerotic degenerative endplate changes at multiple levels. Evaluation of the left forearm and both hips is obtained and appearstechnically adequate. The left forearm discloses a total bone mineral density of 0.453 g/eb9qaya a T- score of -2.2. Z score 1.6 This is in the osteopenia range. Nostatistically significant change from 03/07/2019. The right hip (total) has a total bone mineral density of 0.732 g/km4xqmc a T- score of -1.7. Z score 0.6. This is in the osteopenia range. Nostatistically significant change from 03/07/2019. The right hip (neck) has a total bone mineral density of 0.705 g/cm2 witha T- score of -1.3. Z score 1.2. The left hip (total) has a total bone mineral density of 0.720 g/cm2 for aT- score of -1.8. Z score 0.5. This is in the osteopenia range. Nostatistically significant change from 03/07/2019. The left hip (neck) has a total bone mineral density of 0.650 g/cm2 with aT- score of -1.8. Z score 0.7. IMPRESSION: Findings again consistent with osteopenia. No statistically significantchanges from 03/07/2019. us Geneva MOORE BD BONE DENSITY DEXA Final Result from Last 3 Months or Most Recently Relevant to Health Maintenance Insurance MEDICARE PART A & B ROLLA CROSS MEDEX SUPPLEMENT MEDICARE PART A & B Bookya CROSS MEDEX SUPPLEMENT MEDICARE PART A & B Flixster MEDEX SUPPLEMENT MEDICARE PART A & B Flixster MEDEX SUPPLEMENT MEDICARE PART A & B Flixster MEDEX SUPPLEMENT MEDICARE PART A & B ROLLA Array Storm MEDEX SUPPLEMENT MEDICARE PART A & B Bookya CROSS MEDEX SUPPLEMENT MEDICARE PART A & B Bookya CROSS MEDEX SUPPLEMENT MEDICARE PART A & B BLUE CROSS MEDEX SUPPLEMENT Advance Directives For more information, please contact: [phone] (9AM - 5PM [facility], Wednesday-Wednesday) Documents on File Type Date Recorded Patient Hub Bander Expl anatnani MOLST 10/10/2024 10:10 AM * DNR/DNI (No CPR/No Intubation) (Latest Code Status on File) Date Activated Date Inactivated Comments 10/09/2024 10:56 AM Question Answer Comments Code Status Confirmed With: Patient Code Status Communicated To: PCP Code Discussion Comments: pt requests no cpr and no intubation or agressive measures Care Teams Agriculture Laboratory Technician Relationship Specialty Start Date End Date Hakan Dewitt MD [address] [place] [address] PCP - General 09/16/17 Hakan Dewitt MD [address] [place] [address] Insurance Assigned Provider 03/04/24 Additional Source Comments The information contained in this document represents components of the legal health record. It is not the complete legal health record.[facility]
== END 2025-08-10 10:35 | disposition home or self-care (01) ==
LOC: HO.HNS 08:54
PROVIDERS: PCP Internal Medicine; Visit Provider Neurological Surgery
DX: M48.061 Spinal stenosis, lumbar region without neurogenic claudication (principal)
CPT/HCPCS: 99204

== ENCOUNTER → 2025-08-10 08:54 | Outpatient (BNVA) | payer MEDICARE, SELFPAY | PROVIDERS: PCP Internal Medicine; Visit Provider Neurological Surgery | DX: M48.061 Spinal stenosis, lumbar region without neurogenic claudication (principal); M79.605 Pain in left leg; M79.604 Pain in right leg | CPT/HCPCS: 99202 ==

== ENCOUNTER 2025-09-06 08:44 | Day surgery (SDC) | payer MEDICARE, SELFPAY ==
--- OUTSIDE RECORDS SUMMARY | 2025-08-16 16:38 | XMS_ITS ---
Author Organization [facility] Address [address] [place] [address] Care Team Providers Care Client Operations Manager Name Role Phone Jayden Reyes MD [...] from 07/06/2018:Stage IA(pT1a, pN0, cM0, G1, ER+, HI+, HER2-) - Unsigned Cataract 05/27/2018 Hypertension 05/27/2018 [...] treatments are documented for this patient in [facility]. Treatments may have been administered in [...] Overview: Added automatically from request for surgery [id number] Left displaced femoral neck fracture 03/24/2020 05/08/2020 [...]
--- OUTSIDE RECORDS SUMMARY | 2025-08-16 16:39 | XMS_ITS | Encounter Summary ---
Author Organization [facility] Address [address] [address] Phone Care Team Providers Care Rake Operator Name Role Phone Hakan Dewitt MD Primary Care Provider [phone] Hakan Dewitt MD Unavailable [phone] Encounter Details Date Type Department Care Team (Latest Contact Info) Description 08/09/2018 Transcribe Orders [facility] [address] [place] [address] Hakan Dewitt MD [address] [place] [address] [email or web address] Pure hypercholesterolemia (Primary Dx); Essential hypertension, malignant; Osteoporosis, unspecified osteoporosis type, unspecified pathological fracture presence Social History Tobacco Use Types Packs/Day Years [...] Care Team (Late st Contact Info) Description 08/17/2025 11:20 AM EDT Office Visit [facility] Internal Medicine [address] [place], [place] [phone] Ernestina Curiel PA-C [address] [place] [address] 10/01/2025 10:30 AM EST Office Visit [facility] Rheumatology [address] [place] [address] Geneva Moya MD [address] [facility], [address] [place] [address] [email or web address] 10/15/2025 1:30 PM EST Office Visit [facility] Internal Medicine [address] [place], [place] [id number] Hakan Dewitt MD [address] [place] [address] [email or web address] documented as of this encounter Results * (ABNORMAL) Urinalysis (08/09/2018 10:28 AM EDT) COLOR STRAW(A) Yellow [facility] CLARITY Clear [facility] GLUCOSE Negative Negative [facility] BILI Negative Negative [facility] KETONES Negative Negative [facility] SPECIFIC GRAVITY <1.005 1.005 - 1.030 [facility] BLOOD Negative Negative [facility] PH 7.0 5.0 - 8.0 [facility] Protein-UA Negative Negative [facility] NITRITE Negative Negative [facility] Leukocyte esterase, ur 1+(A) Negative [facility] Urine (Urine) 08/09/2018 10: 28 AM EDT 08/09/2018 10:36 AM EDT us Hakan Dewitt MD URINE ORDERABLES Final Result [facility] [address] [place] [address] * (ABNORMAL) Comprehensive metabolic panel (08/09/2018 10:06 AM EDT) SODIUM 137 133 - 146 mmol/L [facility] POTASSIUM 4.5 3.3 - 5.1 mmol/L [facility] CHLORIDE 99 96 - 108 mmol/L [facility] CO2 26 21 - 35 mmol/L [facility] BUN 21(H) 6 - 19 mg/dL [facility] CREATININE 0.80 0.5 - 1.5 mg/dL [facility] GLUCOSE 97 70 - 99 mg/dL [facility] ALBUMIN 4.3 3.9 - 4.8 g/dL [facility] TOTAL PROTEIN 7.4 6.5 - 8.0 g/dL [facility] CALCIUM 10.1 8.4 - 10.3 mg/dL [facility] ALKALINE PHOSPHATASE 48 39 - 117 U/L [facility] TOTAL BILIRUBIN 0.6 0.0 - 1.2 mg/dL [facility] AST 21 0 - 37 U/L [facility] ALT 15 0 - 40 U/L [facility] GLOBULIN 3.1 1 - 4.8 g/dL [facility] EGFR 69 >59 mL/min/1.7 3m2 [facility] Comment:If patient is black, multiply result by 1.159. Estimated glomerular filtration rate calculated using the CKD-EPI equation. ANION GAP 17 10 - 20 mmol/L [facility] Blood 08/09/2018 10:0 6 AM EDT 08/09/2018 10:10 AM EDT us Hakan Dewitt MD LAB BLOOD ORDERABLES Final Re sult [address] [address] * (ABNORMAL) CBC (08/09/2018 10:06 AM EDT) WBC 7.16 3.40 - 11.20 K/uL [facility] RBC 5.08(H) 3.80 - 4.80 M/uL [facility] HGB 13.9 12.0 - 15.0 g/dL [facility] HCT 42.2 36.0 - 46.0 % [facility] PLT 254 130 - 400 K/uL [facility] MCV 83.1 79.0 - 98.0 fL [facility] MCH 27.4 27.0 - 34.8 pg [facility] MCHC 32.9 31.5 - 36.0 g/dL [facility] RDW 14.5 10.8 - 14.6 % [facility] MPV 11.6 9.4 - 12.4 [facility] NRBC 0.00 /100 WBCs [facility] ABSOLUTE NRBC 0.00 K/uL [facility] Blood 08/09/2018 10:0 6 AM EDT 08/09/2018 10:10 AM EDT us Hakan Dewitt MD LAB BLOOD ORDERABLES Final Re sult Performing Organization Address [facility] [address] [facility] Co de Phone Number [address] [address] * (ABNORMAL) Lipid panel (08/09/2018 10:06 AM EDT) HDL 87 mg/dL [facility] Comment: Interpretation: Risk Level Females Decreased >55mg/dL Average 50-55 mg/dL Increased <50 mg/dL CHOLESTEROL 250(H) 0 - 240 mg/dL [facility] TRIGLYCERIDES 163(H) 30 - 160 mg/dL [facility] LDL 130(H) 50 - 129 mg/dL [facility] Comment: LDL levels in terms of risk for coronary heart disease: <100 mg/dL: Optimal 100-129 mg/dL: Near or above optimal 130-159 mg/dL: Borderline high 160-189 mg/dL: High >190 mg/dL: Very High CARDIAC RISK RATIO 2.9(L) 3.3 - 4.4 C [facility] Blood 08/09/2018 10:0 6 AM EDT 08/09/2018 10:10 AM EDT us Hakan Dewitt MD LAB BLOOD ORDERABLES Final Re sult Performing Organization Address City/[facility] [address]/[facility] Co de Phone Number [address] [address] * (ABNORMAL) 25-OH vitamin D (08/09/2018 10:06 AM EDT) 25 OH VIT D (TOTAL) >60(H) 30 - 60 ng/mL [facility] Blood 08/09/2018 10:0 6 AM EDT 08/09/2018 10:10 AM EDT us Hakan Dewitt MD LAB BLOOD ORDERABLES Final Re sult Performing Organization Address City/[facility] [address]/ZIP Co de Phone Number [address] [address] * TSH (08/09/2018 10:06 AM EDT) TSH 0.84 0.27 - 4.20 uIU/mL [facility] Blood 08/09/2018 10:0 6 AM EDT 08/09/2018 10:10 AM EDT us Hakan Dewitt MD LAB BLOOD ORDERABLES Final Re sult Performing Organization Address [facility] [address]/[facility] Co de Phone Number [address] [address] documented in this encounter Visit Diagnoses Diagnosis Pure hypercholesterolemia- Primary Essential hypertension, malignant Osteoporosis, unspecified osteoporosis type, unspecified pathological fracture presence documented in this encounter Additional Health Concerns Infection Onset Date Last Indicated Resolved Time CoV-Risk 01/01/2022 01/01/2022 01/02/2022 2:50 PM EST COVID-19 01/01/2022 01/01/2022 01/22/2022 1:21 AM EST Assessment Noted Time PHQ-2 Depression Total Score: 0 01/04/20 18 9:57 AM EST documented as of this encounter Care Teams Rake Operator Relationship Specialty Start Date End Date Hakan Dewitt MD [address] [place] [address] PCP - General 09/16/17 Hakan Dewitt MD [address] [place] [address] [email or web address] Insurance Assigned Provider 03/04/24 documented as of this encounter Additional Source Comments The information contained in this document represents components of the legal health record. It is not the complete legal health record.[facility]
--- OUTSIDE RECORDS SUMMARY | 2025-08-16 16:39 | XMS_ITS | Clinical Summary ---
Author Organization [facility] Address [address] [place] [address] Care Team Providers Care Whistle Punk Name Role Phone Jayden Reyes MD Primary [...] from 07/06/2018:Stage IA(pT1a, pN0, cM0, G1, ER+, AK+, HER2-) - Unsigned Cataract 05/27/2018 Hypertension 05/27/2018 [...] Overview: Added automatically from request for surgery [id number] Left displaced femoral neck fracture 03/24/2020 05/08/2020 [...] medical attention Medical Devices Implanted Type Area Manager Switch Device Identifier Shelf Expiration Date Model / Serial / Lot Screw Partial Thread 100mm 16mm 7mm Conrad Titanium Josh - [id number] - [id number] Implanted:Qty: 1 on 03/25/2020 by Fabiano Lopez MD at [facility] Left: Hip [employer] 02/14/2028 [id number] / / [id number] Screw Partial Thread 95mm 16mm 7mm Conrad Titanium Bon - [id number] - [id number] Implanted:Qty: 1 on 03/25/2020 by Fabiano Lopez MD at [facility] Left: Hip [employer] 10/23/2028 [id number] / / [id number] Screw Partial Thread 105mm 16mm 7mm Conrad [employer] Josh - [id number] - [id number] Implanted:Qty: 1 on 03/25/2020 by Fabiano Lopez MD at [facility] Left: Hip [employer] 03/24/2029 [id number] / / [id number] Advance Directives For more information, please contact: [phone] Documents on File Type Date Recorded Patient Intensive Care Nurse Expl 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 Care Teams Whistle Punk Relationship Specialty Start Date End Date Jayden Reyes MD PCP - General Internal Medicine 06/17/18
--- OUTSIDE RECORDS SUMMARY | 2025-08-16 16:39 | XMS_ITS | Clinical Summary ---
Author Organization [facility] Address [address] [place] [address] Care Team Providers Care Meeting Coordinator Name Role Phone Hakan Dewitt MD Primary Care Provider [phone] Surgical History Surgery Date Site/Laterality Comments BREAST LUMPECTOMY 07/06/2018 Right PROCEDURE:BREAST LUMPECTOMY;COMMENT:10:00, Dr. 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 RUTLEDGE 2014 ESOPHAGOGASTRODUODENOSCOPY 05/15/2017 PROCEDURE:ESOPHAGOGASTROD UODENOSCOPY;COMMENT:Dr. Koenig-food impaction removed, moderate esophageal spasms, narrowing distal third of esophagus, moderate diffuse gastritis BREAST BIOPSY 06/06/2018 Right PROCEDURE:BREAST BIOPSY;COMMENT:10:00, IDC w/DCIS, Dr. Crooks, [facility] COLONOSCOPY 08/17/2015 PROCEDURE:COLONOSCOPY;COM MENT:mild ichemic changes [...] PINNING HIP; Surgeon: Fabiano Lopez MD; Location: [facility] OPERATING [facility]OM; Service: Orthopedics; Laterality: Left; MASTECTOMY PROCEDURE:MASTECTOMY;COMM ENT:partial left do not use left arm Medical History Medical History Date Comments Osteoporosis DX:Osteoporosis Hypothyroidism DX:Hypothyroidis m Urinary incontinence DX:Urinary incontinence COPD (chronic obstructive pu lmonary disease) ([facility], [facility] V28) DX:COPD (chronic o bstructive pulmonary disease) ([facility]COMMENT:DR. SNIDER, PFTS--02/11, FEV1/FVC 55%, FEV1 54% Arthritis of right shoulder region DX:Arthritis of right shoulder region Dementia ([facility], [facility] V28) DX:Dementia ([facility]);COMMENT:ON ARICEPT--DR. ANA CATES Hypertension DX:Hypertension Allergic rhinitis [...] DX:S/p lef t hip fracture Breast cancer ([facility] V24, [facility] V28) DX:Breast cancer ([facility]);COMMENT:ER/[place]+' HER2 NEGATIVE, S/P LUMPECTOMY AND RADIATION ON ARIMIDEX Breast cancer ([facility] V24, [facility] V28) 06/2018 DX:Breast cancer ([facility]);COMMENT:Rght lumpectomy (prev hx of left breast ca) [...] this topic Medical Devices Implanted Type Area Sales Correspondent Device Identifier Shelf Expiration Date Model / Serial / Lot Screw Partial Thread 100mm 16mm 7mm Conrad [employer] Josh - [id number] Implanted:Qty: 1 on 03/25/2020 by Fabiano Lopez MD Left: Hip [employer] 02/14/2028 [id number] / / [id number] Screw Partial Thread 95mm 16mm 7mm [employer] Bon - [id number] Implanted:Qty: 1 on 03/25/2020 by Fabiano Lopez MD Left: Hip [employer] 10/23/2028 [id number] / / [id number] Screw Partial Thread 105mm 16mm 7mm Conrad [employer] Josh - [id number] Implanted:Qty: 1 on 03/25/2020 by Fabiano Lopez MD Left: Hip [employer] 03/24/2029 [id number] / / [id number] Advance Directives Documents on File Type Date Recorded 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
--- OUTSIDE RECORDS SUMMARY | 2025-08-16 16:39 | XMS_ITS | Encounter Summary ---
Author Organization [facility] Address [address] [address] Phone Care Team Providers Care Fiscal Services Manager Name Role Phone Hakan Dewitt MD Primary Care Provider Hakan Dewitt MD Unavailable [phone] Reason for Visit * Reason Onset Date Comments Appointment 08/10/2025 Pt needs a pre - op appt before surgery date on 09/06/25 no available appts before that date to schedule, please contact and advise with a Pre-op appt, best contact number is [phone] please leave a detailed message if no answer Encounter Details Date Type Department Care Team (Late st Contact Info) Description 08/10/2025 Telephone [facility] Internal Medicine [address] [place], [place] [phone] Hakan Dewitt MD [address] [place] [address] [email or web address] Appointment (Pt needs a pre -op appt before surgery date on 09/06/25 no available appts before that date to schedule, please contact and advise with a Pre-op appt, best contact number is [phone] please leave a detailed message if no answer ) Social History Tobacco Use Types Packs/Day Years Used Date Smoking Tobacco: Never Smokeless Tobacco: Never Alcohol Use Standard Drinks/Week Comments Yes 0 [...] on file documented as of this encounter Progress Notes * Familia Robles [place] - 08/14/2025 2:50 PM EDT Delisa note updated. * Katy Pan - 08/14/2025 11:41 AM EDT Patient came into the office to request Pre-op appointment. Patient scheduled for 08/17/2025 at 1120am with Brown Curiel PA-C. Pre op form completed in placed in providers box. * Nicole Landin - 08/10/2025 1:52 PM EDT Pt needs a pre -op appt before surgery date on 10/9/25 no available appts before that date to schedule, please contact and advise with a Pre-op appt, best contact number is [phone] please leave a detailed message if no answer Central Support Furniture Finisher (Please do not reply to this user; this inbox is not monitored.) Thank you. documented in this encounter Plan of Treatment Upcoming Encounters Date Type Department Care Team (Late st Contact Info) Description 08/17/2025 11:20 AM EDT Office Visit [facility] Internal Medicine [address] [place] [address] Ernestina Curiel PA-C [address] [place] [address] 10/01/2025 10:30 AM EST Office Visit [facility] Rheumatology [address] [place] [address] Geneva Moya MD [address] [facility], [address] [place] [address] [email or web address] 10/15/2025 1:30 PM EST Office Visit [facility] Internal Medicine [address] [place] [address] Hakan Dewitt MD [address] [place] [address] documented as of this encounter Visit Diagnoses Not on filedocumented in this encounter Additional Health Concerns Assessment Noted Time PHQ-2 Depression Total Score: 0 10/09/20 24 9:23 AM EST documented as of this encounter Care Teams Fiscal Services Manager Relationship Specialty Start Date End Date Hakan Dewitt MD [address] [place] [address] [email or web address] PCP - General 09/16/17 Hakan Dewitt MD [address] [place], [place] [phone] [email or web address] Insurance Assigned Provider 03/04/24 documented as of this encounter Additional Source Comments The information contained in this document represents components of the legal health record. It is not the complete legal health record.[facility]
--- OUTSIDE RECORDS SUMMARY | 2025-08-16 16:39 | XMS_ITS | Clinical Summary ---
Author Organization [facility] Address [address] [email or web address] [address] [address] Phone Care Team Providers Care Framing Mechanic Name Role Phone Hakan Dewitt MD Primary Care Provider [phone] Hakan Dewitt MD Unavailable [phone] Allergies Active Allergy Reactions Criticality Noted Date [...] daily. Active calcium carb/D3/magnesium/z inc (CALCIUM CARB-D3-MAG [id number]) [phone] za-dutt-pz-mg Tab Take 1 tablet by mouth daily. [...] Dr. Tushar Jaeger can see here at [facility]. Imaging was done at [facility]. Patient counseled about frozen shoulder, to keep moving, using ibuprofen for first-line pain treatment and then use the tramadol 3 times daily as needed if ibuprofen not effective. Rotator cuff arthropathy, right 03/03/2023 Assessment & Plan (02/11/2024 10:12 AM EDT): I reviewed with Susie benefits and possible risks of guided intra-articular [...] is not adequate we will refer to [facility] for pelvic exam. Hyperuricemia 12/06/2019 Assessment & [...] Problem Noted Date Diagnosed Date Resolved Date USP use of alendronate therapy (Fosamax) 07/11/2020 03/03/2023 [...] at least every 3 months as requested. manager terminal current use of non -steroidal anti-inflammatories (NSAID) [...] Encounters Date Type Department Care Team Description 08/10/2025 Telephone [facility] Internal Medicine [address] [place] [address] Hakan Dewitt MD Appointment (Pt needs a pre -op appt before surgery date on 09/06/25 no available appts before that date to schedule, please contact and advise with a Pre-op appt, best contact number is [phone] please leave a detailed message if no answer ) 08/10/2025 Telephone [facility] Internal Medicine [address] [facility] [place] [address] Hakan Dewitt MD Pre-op Visit (1. Type of Anesthesia: unknown//2. Procedure / Surgery Type: Spine/Back//3. Location of Procedure: [facility]//4. Is EKG needed:YES/NO: yes//5. Is Lab Work needed:YES/NO: yes//6. Procedure Date: 09/06/25//7. Name of Surgeon (First, Last): Dr. Garcia//8. Name of person to contact with Pre-op info, including contact number: n/a/) 07/10/2025 Refill [facility] Internal Medicine [address] [place] [address] Hakan Dewitt MD Medication Refill 06/04/2025 Telephone [facility] [address] [place] [address] Hakan Dewitt MD Triage (Red-severe back and hip pain) 05/30/2025 10:30 AM EDT Office Visit [facility] Rheumatology [address] [place] [address] Geneva Moya MD Primary osteoarthritis involving multiple [...] Description 08/17/2025 11:20 AM EDT Office Visit [facility] Internal Medicine [address] [place] [address] Ernestina Curiel PA-C [address] [place], [place] [phone] 10/01/2025 10:30 AM EST Office Visit [facility] Rheumatology [address] [place] [address] Geneva Moya MD [address] [facility], [address] [place] [address] [email or web address] 10/15/2025 1:30 PM EST Office Visit [facility] Internal Medicine [address] [place] [address] Hakan Dewitt MD [address] [place], [place] [phone] Health Maintenance Due Date Last Done Comments [...] HIP Routine 06/16/2021 10:27 AM EDT Osteopenia USP use of alendronate therapy (Fosamax) from Last 3 Months or Most Recently Relevant to Health Maintenance Results * (ABNORMAL) Comprehensive metabolic panel (04/10/2025 9:48 AM EDT) SODIUM 137 133 - 146 mmol/L [facility] POTASSIUM 4.2 3.3 - 5.1 mmol/L [facility] CHLORIDE 101 96 - 108 mmol/L [facility] CO2 23 21 - 35 mmol/L [facility] BUN 34(H) 6 - 19 mg/dL [facility] CREATININE 0.80 0.5 - 1.5 mg/dL [facility] GLUCOSE 88 70 - 99 mg/dL [facility] ALBUMIN 4.2 3.9 - 4.8 g/dL [facility] TOTAL PROTEIN 7.2 6.5 - 8.0 g/dL [facility] CALCIUM 9.7 8.4 - 10.3 mg/dL [facility] ALKALINE PHOSPHATASE 76 39 - 117 U/L [facility] TOTAL BILIRUBIN 0.7 0.0 - 1.2 mg/dL [facility] AST 21 0 - 37 U/L [facility] ALT 13 0 - 40 U/L [facility] GLOBULIN 3.0 1 - 4.8 g/dL [facility] EGFR 71 >59 mL/min/1.7 3m2 [facility] Comment:Estimated glomerular filtration rate calculated using the CKD-EPI refit equation. ANION GAP 17 10 - 20 mmol/L [facility] Blood 04/10/2025 9:48 AM EDT 04/10/2025 9:52 AM EDT us Hakan Dewitt MD LAB BLOOD ORDERABLES Final Re sult [facility] [address] [place] [address] * BD DXA AXIAL (SPINE) WITH HIP [...] a total bone mineral density of 0.453 g/rh8kecn a T- score of -2.2. Z score 1.6 This is in the osteopenia range. Nostatistically significant change from 03/07/2019. The right hip (total) has a total bone mineral density of 0.732 g/ef0dclu a T- score of -1.7. Z score [...] No statistically significantchanges from 03/07/2019. us Geneva JULIENG BD BONE DENSITY DEXA Final Result from Last 3 Months or Most Recently Relevant to Health Maintenance Insurance MEDICARE PART A & B [place] [employer] SUPPLEMENT MEDICARE PART A & B [place] SUPPLEMENT MEDICARE PART A & B [place] MED[place] SUPPLEMENT MEDICARE PART A & B [place] MEDEX SUPPLEMENT MEDICARE PART A & B [place] MEDEX SUPPLEMENT MEDICARE PART A & B [place] MEDEX SUPPLEMENT MEDICARE PART A & B [place] MED[place] SUPPLEMENT MEDICARE PART A & B [place] MED[place] SUPPLEMENT MEDICARE PART A & B [place] MEDEX SUPPLEMENT Advance Directives For more information, please contact: [phone] (9AM - 5PM Jennifer/[facility], Wednesday-Wednesday) Documents on File Type Date Recorded Patient Game Moderator Expl anatnani MOLST 10/10/2024 10:10 AM * DNR/DNI (No CPR/No Intubation) (Latest Code Status on File) Date Activated Date Inactivated Comments 10/09/2024 10:56 AM Question Answer Comments Code Status Confirmed With: Patient Code Status Communicated To: PCP Code Discussion Comments: pt requests no cpr and no intubation or agressive measures Care Teams Framing Mechanic Relationship Specialty Start Date End Date Hakan Dewitt MD [address] [place] [address] [email or web address] PCP - General 09/16/17 Hakan Dewitt MD [address] [place] [address] Insurance Assigned Provider 03/04/24 Additional Source Comments The information contained in this document represents components of the legal health record. It is not the complete legal health record.[facility]
--- OUTSIDE RECORDS SUMMARY | 2025-08-16 16:39 | XMS_ITS | Encounter Summary ---
Author Organization [facility] Address [address] [place] [address] Care Team Providers Care Halver Machine Operator Name Role Phone Jayden Reyes MD Primary Care Provider Radha sullivan Encounter Details Date Type Department Care Team Description 07/19/2020 Chronic Care Management [address] [address] Shereen Iniguez RN Social History Tobacco Use [...] on filedocumented in this encounter Care Teams Halver Machine Operator Relationship Specialty Start Date End Date Jayden Reyes MD PCP - General Internal Medicine 06/17/18 documented as of this encounter
--- OUTSIDE RECORDS SUMMARY | 2025-08-16 16:39 | XMS_ITS | Encounter Summary ---
Author Organization [facility] Address [address] [address] Phone Care Team Providers Care Vocational Nurse Lvn Name Role Phone Hakan Dewitt MD Primary Care Provider [phone] Hakan Dewitt MD Unavailable [phone] Encounter Details Date Type Department Care Team (Late Contact Info) Description 06/21/2020 Orders Only [address] [place] [address] Hakan Dewitt MD [address] [place], [place] [phone] [email or web address] Social History Tobacco Use Types Packs/Day Years [...] Encounters Date Type Department Care Team (Late Contact Info) Description 08/17/2025 11:20 AM EDT Office Visit [facility] Internal Medicine [address] [place], [place] [phone] Ernestina Curiel PA-C [address] [place], [place] [phone] 10/01/2025 10:30 AM EST Office Visit [facility] Rheumatology [address] [place] [address] Geneva Moya MD [address] [facility], [address] [place] [address] [email or web address] 10/15/2025 1:30 PM EST Office Visit [facility] Internal Medicine [address] [place] [address] Hakan Dewitt MD [address] [place] [address] [email or web address] documented as of this encounter Procedures Procedure Name Priority Date/Time Associated Diagnosis Comments COMPREHENSIVE METABOLIC PANEL Routine 06/13/2020 25-OH VITAMIN D Routine 06/13/2020 URINALYSIS Routine 06/13/2020 CBC Routine 06/13/2020 TSH Routine 06/13/2020 LIPID PANEL Routine 06/13/2020 documented in this encounter Results * CBC (06/13/2020) us Hakan Dewitt MD LAB BLOOD ORDERABLES Edited R esult - Final * Comprehensive metabolic panel (06/13/2020) Hakan Dewitt MD LAB BLOOD ORDERABLES Edited R esult - Final * Lipid panel (06/13/2020) us Hakan Dewitt MD LAB BLOOD ORDERABLES Edited R esult - Final * TSH (06/13/2020) Hakan Dewitt MD LAB BLOOD ORDERABLES Edited R esult - Final * Urinalysis (06/13/2020) Urine Hakan Dewitt MD URINE ORDERABLES Edited Resul t - Final * 25-OH vitamin D (06/13/2020) Hakan Dewitt MD LAB BLOOD ORDERABLES [...] documented as of this encounter Care Teams Vocational Nurse Lvn Relationship Specialty Start Date End Date Hakan Dewitt MD [address] [place] [address] [email or web address] PCP - General 09/16/17 Hakan Dewitt MD [address] [place] [address] [email or web address] Insurance Assigned Provider 03/04/24 documented as of this encounter Additional Source Comments The information contained in this document represents components of the legal health record. It is not the complete legal health record.[facility]
--- OUTSIDE RECORDS SUMMARY | 2025-08-16 16:39 | XMS_ITS | Encounter Summary ---
Author Organization [facility] Address [address] [facility] [address] [place] [address] Phone Care Team Providers Care Administrative Services Specialist Name Role Phone Hakan Dewitt MD Primary Care Provider [phone] Hakan Dewitt MD Unavailable [phone] Reason for Visit * Reason Onset Date Comments Pre-op Visit 08/10/2025 1. Type of Anest hesia: unknown2. Procedure / Surgery Type: Spine/Back3. Location of Procedure: [facility]4. Is EKG needed:YES/NO: yes5. Is Lab Work needed:YES/NO: yes6. Procedure Date: . Name of Surgeon (First, Last): Dr. Garcia8. Name of person to contact with Pre-op info, including contact number: n/a Encounter Details Date Type Department Care Team (Late st Contact Info) Description 08/10/2025 Telephone [facility] Internal Medicine [address] [place], [place] [phone] Hakan Dewitt MD [address] [place] [address] Pre-op Visit (1. Type of Anesthesia: unknown//2. Procedure / Surgery Type: Spine/Back//3. Location of Procedure: [facility]//4. Is EKG needed:YES/NO: yes//5. Is Lab Work needed:YES/NO: yes//6. Procedure Date: 09/06/25/7. Name of Surgeon (First, Last): Dr. Garcia//8. Name of person to contact with Pre-op info, including contact number: n/a/) Social History Tobacco Use Types Packs/Day Years [...] as of this encounter Progress Notes * Katy Pan - 08/14/2025 11:43 AM EDT Patient came into the office to request Pre-op appointment. Patient scheduled for 08/17/2025 at 1120am with Brown Curiel PA-C. Pre op form completed in placed in providers box. * Nicole Landin - 08/10/2025 1:48 PM EDT [facility] [employer] Smart Phrases: Pre-op Appointment Request Type of Anesthesia: unknown Procedure / Surgery Type: Spine/Back Location of Procedure: [facility] Is EKG needed:YES/NO: yes Is Lab Work needed:YES/NO: yes Procedure Date: 09/06/25 Name of Surgeon (First, Last): Dr. Garcia Name of person to contact with Pre-op info, including contact number: n/a Confirm you have informed the patient that the Pre-op Paperwork must be faxed to the office before the appt.:yes or no or NA: Yes [facility] Call Center CSS Agent (Please do not reply to this user, as this inbox is not monitored.) Thank you documented in this encounter Plan of Treatment Upcoming Encounters Date Type Department Care Team (Late st Contact Info) Description 08/17/2025 11:20 AM EDT Office Visit [facility] Internal Medicine [address] [place] [address] Ernestina Curiel PA-C [address] [place] [address] 10/01/2025 10:30 AM EST Office Visit [facility] Rheumatology [address] [place] [address] [place] [address] Geneva Moya MD [address] [place] [address], [address] [place] [address] [email or web address] 10/15/2025 1:30 PM EST Office Visit [facility] Internal Medicine [address] [place] [address] Hakan Dewitt MD [address] [place] [address] documented as of this encounter Visit Diagnoses Not on filedocumented in this encounter Additional Health Concerns Assessment Noted Time PHQ-2 Depression Total Score: 0 10/09/20 24 9:23 AM EST documented as of this encounter Care Teams Administrative Services Specialist Relationship Specialty Start Date End Date Hakan Dewitt MD [address] [place] [address] [email or web address] PCP - General 09/16/17 Hakan Dewitt MD [address] [place] [address] [email or web address] Insurance Assigned Provider 03/04/24 documented as of this encounter Additional Source Comments The information contained in this document represents components of the legal health record. It is not the complete legal health record.[facility]
[2025-08-29 10:02] VITALS: BMI 19.0
--- NOTE | 2025-09-04 15:30 | P.DS_ITS ---
DS: Providers Provider Date of Service: 09/06/25 Date of discharge: 09/06/25 Primary care physician: Hakan Dewitt MD Admitting clinician: Giovanni Garcia DS: Diagnosis Discharge Diagnosis (1) Lumbar spinal stenosis: Status: Acute Physical Exam Vital Signs: Vital Signs: BMI result Body Mass Index 19.0 Discharge Plan Discharge Patient Disposition: Home, Self-Care Referrals: Hakan Dewitt MD [Primary Care Provider, Internal Medicine] - 1 Week Discharge Medications: Continued Lactobacillus rhamnosus GG 10 billion cell Capsule 1 cap PO DAILY naproxen sodium [Aleve] 220 mg Capsule 220 mg PO Q8H PRN (Reason: Pain) calcium carb-D3-mag ox-zinc ox 333 mg-133 unit -133 mg-5 mg Tablet 1 tab PO DAILY Clear Eyes Complete 0.025-0.2-0.5 % Drops 1 drp OPHTHALMIC (EYE) QID PRN (Reason: Eye Irritation) valsartan-hydrochlorothiazide 160-12.5 mg tablet 1 tab PO DAILY pantoprazole 40 mg tablet,delayed release (DR/EC) 40 mg PO DAILY amlodipine 5 mg tablet 5 mg PO BID biotin 5,000 mcg tablet,chewable 10,000 mcg PO DAILY acetaminophen 500 mg capsule 500 mg PO QID PRN (Reason: Pain) tramadol 50 mg tablet 25 mg PO BID Qty: 14 0RF Held vitamin E (dl, acetate) 450 mg (1,000 unit) capsule 450 mg PO QDAY Hold Instructions: Resume on 09/11/25. You may resume 1 week after surgery Diet: Advance to usual diet Activity on Discharge: As tolerated Activity Restrictions/Additional Instructions: After your spinal surgery we ask you to observe the following restrictions/guidelines: Activity: It is normal to feel some discomfort as you increase your activity, but that will improve with time. We ask you avoid heavy lifting or acitivities that cause pain. As a general rule, 8lbs is a safe limit for lifting right after surgery. Walk as much as you feel comfortable but not to exhaustion. You will feel extra tired the first few days after surgery. Stay well hydrated. It is OK to walk up and down stairs You may return to driving when you are off narcotics (such as vicodin, oxycodone, dilaudid, etc), and you are back to normal functional capacity. If you have any concerns please check with office before driving. Return to work is specific to each patient and each surgery, so please speak with your doctor/PA at first follow up. Please bring paperwork such as FMLA at that time if you need it filled out. Medications: You may resume vitamin-E 1 week after surgery For optimum pain control, it is best to start with a combination of 500 mg of Tylenol every 4 hours with 600 mg of Motrin every 8 hours, and use narcotics as needed in between for breakthrough pain. We will give you a short supply of narcotics after surgery (usually one weeks worth). If you need more please call the office but do not use more than prescribed. You will need to give our office 48 hours notice if you need narcotics refilled and we do not fill narcotics on weekends or evenings. If you are on a narcotic, it is a good idea to take a stool softener such as colace or senna to avoid constipation If you take blood thinner such as aspirin, Plavix, Coumadin, Effient, Eliquis etc for conditions such as Afib, DVT, Pulmonary embolus, coronary disease, stents etc please speak with your surgeon about specific details as to when you can resume these medications. Follow up: Please call the office, , after surgery to arrange a 3 week follow up for wound check. Wound Care: You may remove your dressing on the first day after surgery. ?You may ?leave open to air. Please do not remove the steri strips underneath. they will fall off on their own in one week. IT IS NORMAL FOR THE WOUND TO OOZE OR BE BLOODY FOR A FEW DAYS AFTER SURGERY. ?IF THIS HAPPENS JUST PLACE NEW DRESSING OVER IT TO AVOID STAINING CLOTHES. You may shower on post op day # 1 We ask that you do not let the water soak the wound. If it does get wet, just towel dry lightly. Please do not scrub your incision or place any type of chemical/ointment on the wound. No tub baths, pools or jacuzzis for one month. If you have any leaking or redness from your wound, or fevers, please call office Print Language: Faroese
[2025-09-06] VITALS (9 sets, daily range): BP systolic 118–168; BP diastolic 42–60; PULSE 58–82; RESP 14–18; TEMP 36.1–36.4; O2SAT 95–100
--- NOTE | ~2025-09-06 | FL_ITS ---
EXAMINATION: FL GUIDANCE ONLY HISTORY: L4-5 decompression Left COMPARISON: Correlation is made to plain films of the lumbar spine dated 03/15/2025. TECHNIQUE: Fluoroscopy time: Less than 1 minute. Cumulative Dose: 1.50 mGy. DAP: 0.223 Gycm2 Images: 1. FINDINGS: A single fluoroscopic spot film of the lumbar spine in the lateral projection demonstrates a probe directed toward the L4-5 intervertebral disc space from a posterior approach. FL/FL guidance in OR IMPRESSION: Fluoroscopy during procedure. Please see procedure report for additional information. Electronically signed by: Saulo Cohen MD 09/06/2025 12:58 PM EDT
[2025-09-06] MEDS: Lactated Ringers 1,000 ML 100 ML IVCONT (10:08)
--- NOTE | 2025-09-06 10:54 | MHC.SHP ---
Pre-Procedural Eval Section A - 24 Hr Update-Section A only Date of Service: 09/06/25 The patient is an INPATIENT: No Section B - Complete if H&P > 30 days Chief Complaint: Spinal stenosis, lumbar region without neurogenic Details of Present Illness: Bilateral leg pain Allergies: Allergies Allergy/AdvReac Type Severity Reaction Status Date / Time penicillin V AdvReac Unknown Hives Verified 09/06/25 09:36 Review of Systems Sugical H&P ROS: Negative: Constitution, Cardiovascular, Respiratory, Neurological, Psychiatric, Hem-Onc, Allergic/Immunologic, Gastrointestinal, Genitourinary, Musculoskeletal, Integumentary, Endocrine and Eyes/Ears/Nose/Throat Exam Surgical H&P Exam: Normal: HEENT, Normal: Heart, Normal: Lungs, Normal: Extremities, Normal: Abdomen, Normal: Skin and Normal: Neurological Plan Diagnosis/Plan: Unchanged I have reviewed the history and physical and performed a pertinent physical examination on my patient. No changes have occurred unless specified. L4-5 decompression, left-sided approach Time Spent With Patient Time: Total time managing care of this patient today _ 5 ___ minutes.
--- NOTE | 2025-09-06 11:05 | HO.ANESPROP2 ---
Documented by User: Chitra Ferguson NP 08/29/25 13:34 HPI - Anesthesia Eval Consult details Narrative: 89yo F for left approach L4-5 decompression, 09/06/25 Medically optimized per PCP [facility] Active Problems Active Problems: All Active Problems Lumbar radiculopathy (Acute) Sacroiliac dysfunction (Acute) Lumbar spinal stenosis (Acute) Degenerative joint disease of right hip (Acute) Fall (Acute) Chronic back pain (Acute) Acute pain (Acute) Arthritis of right shoulder region (Acute) Calcific tendonitis of right shoulder (Acute) Past Medical History Medical History GERD (gastroesophageal reflux disease) PVD (peripheral vascular disease) Raynauds disease HLD (hyperlipidemia) HTN (hypertension) Surgical History Surgical History Hx of bilateral cataract extraction (~2011) History of carpal tunnel release Hx of colonoscopy (~2008) Hx of hysterectomy (~1984) Hx of repair of rotator cuff (~1984) Social History Social History (Updated 03/15/25 @ 08:52 by Uma Hernandez [facility]) Are you a primary critical care cns to a significant other at home: No Do you presently have visiting nurse or other home services: No (adult children nearby) Alcohol intake: never Comment: uses cane at times Patient Tobacco Use Status: Never used Tobacco e-Cigarette/Vaping Use: Never Used Use of substances other than those prescribed or required for medical reasons: No Have you been hit, kicked, punched, or otherwise hurt by someone within the past year? 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 Allergies Allergy/AdvReac Type Severity Reaction Status Date / Time penicillin V AdvReac Unknown Hives Verified 09/06/25 09:36 Home Medications ?Medication ?Instructions ?Recorded ?Confirmed ?Last Taken ?Type amlodipine 5 mg tablet 5 mg PO BID 01/08/24 08/28/25 09/06/25 07:00 History biotin 5,000 mcg chewable tablet 10,000 mcg PO DAILY 01/08/24 08/28/25 08/30/25 History pantoprazole 40 mg tablet,delayed 40 mg PO DAILY 01/08/24 08/28/25 09/06/25 07:00 History release valsartan 160 1 tab PO DAILY 01/08/24 08/28/25 Unknown History mg-hydrochlorothiazide 12.5 mg tablet vitamin E (dl, acetate) 450 mg 450 mg PO QDAY 01/08/24 08/28/25 08/30/25 History (1,000 unit) capsule Held on 09/04/25. Instructions: Resume on 09/11/25. You may resume 1 week after surgery acetaminophen 500 mg capsule 500 mg PO QID PRN Pain 02/04/24 08/28/25 Unknown History Lactobacillus rhamnosus GG 10 1 cap PO DAILY 08/28/25 08/28/25 08/30/25 History billion cell capsule calcium 333 mg-vit D3 133 1 tab PO DAILY 08/28/25 08/28/25 08/30/25 History unit-magnesium 133 mg-zinc 5 mg tablet naphazo HCl 0.025 %-hyprome 0.2 1 drp ophthalmic (eye) QID PRN Eye 08/28/25 08/28/25 Unknown History %-ps 80 0.5 %-Zn sulf 0.25 % eye Irritation drops (Clear Eyes Complete) naproxen sodium 220 mg capsule 220 mg PO Q8H PRN Pain 08/28/25 08/28/25 08/30/25 History (Aleve) Exam Height,Weight and Vital Signs: Height 4 ft 9 in Weight 39.916 kg Pertinent Lab Results Pertinent Lab Results: CBC and BMP 07/2025 from outside facility WNL Narrative Narrative: EKG 07/2025 SR per PCP note - waveform unreadable Assessment and Plan Assessment Anesthesia Assessment: Chart Reviewed Documented by User: Lawanda Viera DO 09/06/25 11:06 [facility] Past Medical History Medical History GERD (gastroesophageal reflux disease) PVD (peripheral vascular disease) Raynauds disease HLD (hyperlipidemia) HTN (hypertension) Family History Family history of problems with anesthesia: No Surgical History Surgical History Hx of bilateral cataract extraction (~2011) History of carpal tunnel release Hx of colonoscopy (~2008) Hx of hysterectomy (~1984) Hx of repair of rotator cuff (~1984) History of Problems with Anesthesia: No Social History Social History (Updated 03/15/25 @ 08:52 by Uma Hernandez [facility]) Are you a primary critical care cns to a significant other at home: No Do you presently have visiting nurse or other home services: No (adult children nearby) Alcohol intake: never Comment: uses cane at times Patient Tobacco Use Status: Never used Tobacco e-Cigarette/Vaping Use: Never Used Use of substances other than those prescribed or required for medical reasons: No Have you been hit, kicked, punched, or otherwise hurt by someone within the past year? 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 Allergies Allergy/AdvReac Type Severity Reaction Status Date / Time penicillin V AdvReac Unknown Hives Verified 09/06/25 09:36 Home Medications ?Medication ?Instructions ?Recorded ?Confirmed ?Last Taken ?Type amlodipine 5 mg tablet 5 mg PO BID 01/08/24 08/28/25 09/06/25 07:00 History biotin 5,000 mcg chewable tablet 10,000 mcg PO DAILY 01/08/24 08/28/25 08/30/25 History pantoprazole 40 mg tablet,delayed 40 mg PO DAILY 01/08/24 08/28/25 09/06/25 07:00 History release valsartan 160 1 tab PO DAILY 01/08/24 08/28/25 Unknown History mg-hydrochlorothiazide 12.5 mg tablet vitamin E (dl, acetate) 450 mg 450 mg PO QDAY 01/08/24 08/28/25 08/30/25 History (1,000 unit) capsule Held on 09/04/25. Instructions: Resume on 09/11/25. You may resume 1 week after surgery acetaminophen 500 mg capsule 500 mg PO QID PRN Pain 02/04/24 08/28/25 Unknown History Lactobacillus rhamnosus GG 10 1 cap PO DAILY 08/28/25 08/28/25 08/30/25 History billion cell capsule calcium 333 mg-vit D3 133 1 tab PO DAILY 08/28/25 08/28/25 08/30/25 History unit-magnesium 133 mg-zinc 5 mg tablet naphazo HCl 0.025 %-hyprome 0.2 1 drp ophthalmic (eye) QID PRN Eye 08/28/25 08/28/25 Unknown History %-ps 80 0.5 %-Zn sulf 0.25 % eye Irritation drops (Clear Eyes Complete) naproxen sodium 220 mg capsule 220 mg PO Q8H PRN Pain 08/28/25 08/28/25 08/30/25 History (Aleve) Exam Exam Date and Time: 09/06/25 1100 Height,Weight and Vital Signs: Height 4 ft 9 in Weight 39.916 kg Vital Signs Temperature 97.6 F 09/06/25 09:55 Pulse Rate 58 09/06/25 09:55 Respiratory Rate 15 09/06/25 09:55 Blood Pressure 168/60 H 09/06/25 09:55 Pulse Oximetry 99 09/06/25 09:55 Oxygen Delivery Method Room Air 09/06/25 09:55 Temperature 97.6 F 09/06/25 09:55 Pulse Rate 58 09/06/25 09:55 Respiratory Rate 15 09/06/25 09:55 Blood Pressure 168/60 H 09/06/25 09:55 Pulse Oximetry 99 09/06/25 09:55 Oxygen Delivery Method Room Air 09/06/25 09:55 Airway Mallampati Class: II TM Dist: >3cm Neck ROM: Limited Loose/Missing/Broken Teeth: No (patient denies any loose or broken teeth) Heart: S1S2 Lungs: CTAB Assessment and Plan Assessment Anesthesia Assessment: Anesthesia Plan Discussed and Chart Reviewed Final Anesthetic Review Family History of Problems with Anesthesia: No History of Problems with Anesthesia: No NPO: Yes ASA Class: II Final Preanesthetic Review: No Changes in Pt Med Stat, Meds/Allgs Chart Reviewed, Consent Obtained/Reviewed and Anes Risks/Benef Reviewed Patient Risk: Low Procedure Risk: Low Anesthetic Plan Anesthetic Plan: GA and Agree w/ Assess. and Plan Disposition: Standard PACU
--- NOTE | 2025-09-06 12:58 | W.PM.OPN ---
Operative Note Operative Note Date of Service: 09/06/25 Narrative: Preoperative Diagnosis: L4-5 spinal stenosis/lateral recess stenosis/neural foraminal stenosis Operation: L4-5 Laminotomy, Partial facetectomy and foraminotomy with use of microscope Consent Informed Consent was obtained for this operation. I have explained the nature, purpose and benefits of the operation. I have discussed the risks and benefit of the operation including possible complications or adverse events with patient/family. Alternative(s) were discussed with the patient with their relative benefits and risks as well as the consequences of not accepting the operation were included in obtaining consent. Surgeon: YUSUF ROCHA MD, PHD Procedure Assisted By: Gildardo Aviles Description of Procedure This 89-year-old female suffering from neurogenic claudication due to severe L4-5 spinal stenosis. The patient was offered a decompression. The procedure complications were explained. The patient was consented. The patient was brought to the operating room and endotracheally intubated. The patient was turned in prone position on the Jim frame. Prep and drape was done followed by timeout. The Physician assistant professor of surgery provided access. A mid lumbar incision was made followed by release of the paravertebral muscle on the left side to expose the L4-5 lamina and facet joints. An intraoperative x-ray was obtained to confirm the correct level. The microscope was brought in. I took over the procedure. The high-speed drill was used to do a left L4-5 laminotomy until flavum ligament was reached. A #2 Kerrison was used to expand the laminotomy near flush to the pedicles and to include a partial facetectomy. The flavum ligament was opened and resected with a #3 Kerrison to decompress the underlying thecal sac. The flavum ligament was removed to decompress the lateral recess and the exiting L5 nerve root. Accordingly, the spinous process was undercut and the contralateral side was decompressed by removing more flavum ligament. A long nerve hook could be easily passed along the medial side of the pedicles as a sign of adequate decompression. The microscope was removed. Hemostasis was done. The physician assistant professor of surgery close the Incision in 2 layers. Steri-Strips were used to approximate incision. An OpSite with Tegaderm was used to cover the incision. All sponge needle counts were correct. Patient was extubated and transported in stable is to recovery room. Anesthesia: General Estimated Blood Loss (ml): 20 Complications: None Duration of Surgery: Under 60 Minutes Postoperative Plan: Discharge to home
--- NOTE | 2025-09-06 13:04 | PM.DS ---
DS: Providers Provider Date of Service: 09/06/25 Date of discharge: 09/06/25 Primary care physician: Hakan Dewitt MD DS: Diagnosis Discharge Diagnosis (1) Lumbar spinal stenosis: Status: Acute DS: Summary Time Attestation Discharge Coordination Time (in mins): 12 Quality: Safe Use of Opioids Does Pt have an Active Cancer Diagnosis on the Problem List?: No Quality: Stroke Does the patient have a stroke diagnosis?: No Physical Exam Vital Signs: Vital Signs: Last Vital Signs Temp 97.6 F 09/06/25 09:55 Pulse 58 09/06/25 09:55 Resp 15 09/06/25 09:55 BP 168/60 H 09/06/25 09:55 Pulse Ox 99 09/06/25 09:55 O2 Del Method Room Air 09/06/25 09:55 BMI result Body Mass Index 19.0 Discharge Plan Discharge Patient Disposition: Home, Self-Care Referrals: Hakan Dewitt MD [Primary Care Provider, Internal Medicine] - 1 Week Discharge Medications: New tramadol 50 mg tablet 50 mg PO Q6H PRN (Reason: pain) Qty: 20 0RF Continued Lactobacillus rhamnosus GG 10 billion cell Capsule 1 cap PO DAILY calcium carb-D3-mag ox-zinc ox 333 mg-133 unit -133 mg-5 mg Tablet 1 tab PO DAILY Clear Eyes Complete 0.025-0.2-0.5 % Drops 1 drp OPHTHALMIC (EYE) QID PRN (Reason: Eye Irritation) valsartan-hydrochlorothiazide 160-12.5 mg tablet 1 tab PO DAILY pantoprazole 40 mg tablet,delayed release (DR/EC) 40 mg PO DAILY amlodipine 5 mg tablet 5 mg PO BID biotin 5,000 mcg tablet,chewable 10,000 mcg PO DAILY acetaminophen 500 mg capsule 500 mg PO QID PRN (Reason: Pain) tramadol 50 mg tablet 25 mg PO BID Qty: 14 0RF Held naproxen sodium [Aleve] 220 mg Capsule 220 mg PO Q8H PRN (Reason: Pain) Hold Instructions: Resume on 09/07/25. vitamin E (dl, acetate) 450 mg (1,000 unit) capsule 450 mg PO QDAY Hold Instructions: Resume on 09/11/25. You may resume 1 week after surgery Discharge Orders: Discharge Order (Routine); Ordered 09/06/25 Ordered By: Darnell Herron Diet: Advance to usual diet Activity on Discharge: As tolerated Activity Restrictions/Additional Instructions: After your spinal surgery we ask you to observe the following restrictions/guidelines: Activity: It is normal to feel some discomfort as you increase your activity, but that will improve with time. We ask you avoid heavy lifting or acitivities that cause pain. As a general rule, 8lbs is a safe limit for lifting right after surgery. Walk as much as you feel comfortable but not to exhaustion. You will feel extra tired the first few days after surgery. Stay well hydrated. It is OK to walk up and down stairs You may return to driving when you are off narcotics (such as vicodin, oxycodone, dilaudid, etc), and you are back to normal functional capacity. If you have any concerns please check with office before driving. Return to work is specific to each patient and each surgery, so please speak with your doctor/PA at first follow up. Please bring paperwork such as FMLA at that time if you need it filled out. Medications: You may resume vitamin-E 1 week after surgery For optimum pain control, it is best to start with a combination of 500 mg of Tylenol every 4 hours with 600 mg of Motrin every 8 hours, and use narcotics as needed in between for breakthrough pain. We will give you a short supply of narcotics after surgery (usually one weeks worth). If you need more please call the office but do not use more than prescribed. You will need to give our office 48 hours notice if you need narcotics refilled and we do not fill narcotics on weekends or evenings. If you are on a narcotic, it is a good idea to take a stool softener such as colace or senna to avoid constipation If you take blood thinner such as aspirin, Plavix, Coumadin, Effient, Eliquis etc for conditions such as Afib, DVT, Pulmonary embolus, coronary disease, stents etc please speak with your surgeon about specific details as to when you can resume these medications. Follow up: Please call the office, , after surgery to arrange a 3 week follow up for wound check. Wound Care: You may remove your dressing on the first day after surgery. ?You may ?leave open to air. Please do not remove the steri strips underneath. they will fall off on their own in one week. IT IS NORMAL FOR THE WOUND TO OOZE OR BE BLOODY FOR A FEW DAYS AFTER SURGERY. ?IF THIS HAPPENS JUST PLACE NEW DRESSING OVER IT TO AVOID STAINING CLOTHES. You may shower on post op day # 1 We ask that you do not let the water soak the wound. If it does get wet, just towel dry lightly. Please do not scrub your incision or place any type of chemical/ointment on the wound. No tub baths, pools or jacuzzis for one month. If you have any leaking or redness from your wound, or fevers, please call office Print Language: Cambodian
== END 2025-09-06 14:47 | disposition home or self-care (01) ==
LOC: HO.SSS 08:45
PROVIDERS: PCP Internal Medicine; Visit Provider Neurological Surgery
PROC: (CPT 63047; principal; 2025-09-06 12:30)
DX: M48.062 Spinal stenosis, lumbar region with neurogenic claudication (principal); M51.362 Other intervertebral disc degeneration, lumbar region with discogenic back pain and lower extremity pain; M41.56 Other secondary scoliosis, lumbar region; R26.2 Difficulty in walking, not elsewhere classified; M85.80 Other specified disorders of bone density and structure, unspecified site; I73.00 Raynaud's syndrome without gangrene; I10 Essential (primary) hypertension; E78.00 Pure hypercholesterolemia, unspecified; K21.9 Gastro-esophageal reflux disease without esophagitis; Z79.899 Other long term (current) drug therapy; Z88.0 Allergy status to penicillin; Z79.1 Long term (current) use of non-steroidal anti-inflammatories (NSAID)
CPT/HCPCS: 63047; J0131; J1100; J2003; J2405; J2704; J3010; J3374

== ENCOUNTER → 2025-09-06 08:44 | Outpatient (BNV) | payer MEDICARE, SELFPAY | PROVIDERS: PCP Internal Medicine; Visit Provider Neurological Surgery | DX: M48.061 Spinal stenosis, lumbar region without neurogenic claudication (principal) | CPT/HCPCS: 63047; 99499 ==

== ENCOUNTER 2025-09-08 16:01 | Emergency (ER) | payer MEDICARE, SELFPAY ==
--- OUTSIDE RECORDS SUMMARY | 2025-09-06 09:00 | XMS_ITS ---
Author Organization [facility] Address [address] [place] [phone] Care Team Providers Care Party Plan Sales Host/Hostess Name Role Phone Esdras SPICER, Hakan Primary Care Provider UnavailIvone Cuevas [phone] Encounters Encounter Location Date Provider Diagnosis [address] [address] 09/06/2025 Ivone Ramirez Plan Of Treatment Next Appt Details Provider Name:Ivone Ramirez , 11/15/2025 01:00:00 PM, [address] [place] [address], [phone], Progress Notes * Susie WYNN ADOB:1935 (89 yo F)Acc No.[id number]:09/06/2025 Progress Note Patient: Harry HECTOR Susie Novak Provider: Jasmina Ramirez DPM :1935 A ge:89 Y S ex:Female Date:09/06/2025 Address:[address] [place], [place] [id number] Pcp:Hakan Dewitt MD Subjective: * Chief Complaints: [...] Date: 1 Generated for Kem garrett/Briana/Susana on: 04:44 PM EDT
[2025-09-08] VITALS (7 sets, daily range): BP systolic 100–198; BP diastolic 43–107; PULSE 61–66; RESP 14–16; TEMP 36.3–36.6; O2SAT 97–100; BMI 17.4
--- NOTE | ~2025-09-08 | XR_ITS ---
CLINICAL HISTORY: Pain Pelvis and left hip, 3 views COMPARISON: DX/SR - XR HIP 2 OR MORE VIEWS RIGHT - 03/15/25 08:35 EDT FINDINGS: No acute fracture. No dislocation. Degenerative changes in the spine and hips. Unremarkable soft tissues. Peripheral atherosclerosis. IMPRESSION: No acute findings. This document has been electronically signed by: Jesse Ramsay MD on 09/08/2025 18:45:46
--- NOTE | ~2025-09-08 | US_ITS ---
CLINICAL HISTORY: S p surgery now left lower extremity pain Left Lower Extremity Venous Duplex Ultrasound COMPARISON: None provided FINDINGS: The visualized deep veins are compressible with normal flow. The visualized superficial veins are patent. Unremarkable soft tissues. Grayscale, spectral waveform analysis, and color flow imaging was performed. IMPRESSION: No DVT seen in the left lower extremity. This document has been electronically signed by: Jesse Ramsay MD on 09/08/2025 21:22:24
--- NOTE | ~2025-09-08 | MR_ITS ---
CLINICAL HISTORY: S p lumbar spine surgery 2 days ago, severe pain Examination: MRI lumbar spine with and without intravenous contrast Comparison: MR/CA/SR - MR LUMBAR SPINE WO CON - 04/19/25 13:10 EDT DX/SR - XR LUMBAR SPINE 2-3 VIEWS - 03/15/25 09:26 EDT Findings: Plain radiograph correlation: 03/15/2025demonstrated 5 developed dzj-gmy-kkaandt lumbar vertebra, discs numbered accordingly. Mild superior endplate compression deformity of L 5 vertebral body with minimal marrow edema. This finding was not demonstrated on previous MRI. Less than 10% loss of vertebral body height.Remaining vertebral body heights are maintained.Stable mild degenerative spondylolisthesis L3-4 and L4-5.Suspect stable type 1 Modic changes L1-L2 level. Anterior posterior longitudinal ligament and interspinous ligament are preserved. Edema and enhancement involving the paravertebral soft tissues posteriorly L4 and L5 level.Probable renal cortical cyst on the left. Probable hepatic cyst left lobe. Correlate with abdominal ultrasound. The conus demonstrates normal caliber and signal intensity and terminates at L1 level. . Individual intervertebral disc levels as follows: L1-L2: Spur disc complexes causing mild central and foraminal stenosis.Disc desiccation.Stable degenerative facet arthropathy. L2-L3: Stable mild loss of disc space height.Subarticular disc herniations and degenerative facet arthropathy encroaching on the neural foramina.No nerve root impingement. L3-L4: Stable mild loss of disc space height.Subarticular disc herniations and degenerative facet arthropathy causing jlkf-ab-rchgtlcs central and foraminal stenosis.There is also dorsal compression of the thecal sac from ligamentum flavum thickening. L4-L5: Stable loss of disc space height.Subarticular disc herniations and degenerative facet arthropathy causing moderate central and foraminal stenosis.There is impingement of the exiting nerve roots and descending nerve roots on the right.Fluid in the facet joints bilaterally. L5-S1: Stable loss of disc space height.Subarticular disc herniations and degenerative facet arthropathy causing moderate central and foraminal stenosis.There is impingement of the descending and exiting nerve roots bilaterally. T12-L1: Normal disc height and signal with no discogenic changes. No disc bulge protrusion or extrusion. No central or foraminal stenosis or thecal sac compression. Normal posterior elements. Post gadolinium study demonstrates enhancement of the posterior paravertebral soft tissues L4 and L5 level. There is also enhancement posterior epidural space at these levels. Findings are probably infectious/inflammatory in nature. Epidural fluid in the posterior epidural space measuring 9 mm L4-5 disc level possibly inflammatory infectious as well. Impression: 1. There is soft tissue swelling and enhancement involving the posterior paravertebral soft tissues at L4 and L5 level. There is enhancement of the posterior epidural space at this level with minimal fluid measuring 9 mm as described possibly infectious / inflammatory as well. 2. Mild superior endplate compression deformity of L5 vertebral body with minimal marrow edema was not demonstrated on previous MRI. 3. Suspect type 1 Modic changes L1-L2 level similar to previous study. 4. Multilevel degenerative spondylosis/listhesis the central and foraminal stenosis shows no significant progression of disease. This document has been electronically signed by: Zaire Valentin MD on 09/09/2025 11:08:24
--- NOTE | 2025-09-08 16:07 | ED.GENADULT ---
HPI - General Adult General Chief complaint: Back Pain/Injury Stated complaint: left hip/leg pain Time Seen by Provider: 09/08/25 17:02 Source: patient, family and old records reviewed Mode of arrival: ambulatory Limitations: no limitations History of Present Illness ED Provider: DR. Contreras HPI narrative: 89-year-old female s/p laparoscopic L4/5 laminotomy, partial facetectomy done by Dr. Reinaldo camargo on 09/06/2025 patient did well after surgery then started to have left hip pain that is radiating down to the left buttock and down to the left lower extremity started as a mild pain initially now the pain is very severe. No history of DVT, no leg swelling, no fall, no trauma to the left hip, no fever, no chills, no weakness, no numbness. Related Data Home Medications ?Medication ?Instructions ?Recorded ?Confirmed amlodipine 5 mg tablet 5 mg PO BID 01/08/24 08/28/25 biotin 5,000 mcg chewable tablet 10,000 mcg PO DAILY 01/08/24 08/28/25 pantoprazole 40 mg tablet,delayed 40 mg PO DAILY 01/08/24 09/08/25 release valsartan 160 1 tab PO DAILY 01/08/24 09/08/25 mg-hydrochlorothiazide 12.5 mg tablet vitamin E (dl, acetate) 450 mg 450 mg PO QDAY 01/08/24 08/28/25 (1,000 unit) capsule Held on 09/04/25. Instructions: Resume on 09/11/25. You may resume 1 week after surgery acetaminophen 500 mg capsule 500 mg PO QID PRN Pain 02/04/24 08/28/25 Lactobacillus rhamnosus GG 10 1 cap PO DAILY 08/28/25 08/28/25 billion cell capsule calcium 333 mg-vit D3 133 1 tab PO DAILY 08/28/25 08/28/25 unit-magnesium 133 mg-zinc 5 mg tablet naphazo HCl 0.025 %-hyprome 0.2 1 drp ophthalmic (eye) QID PRN Eye 08/28/25 08/28/25 %-ps 80 0.5 %-Zn sulf 0.25 % eye Irritation drops (Clear Eyes Complete) naproxen sodium 220 mg capsule 220 mg PO Q8H PRN Pain 08/28/25 08/28/25 (Aleve) Held on 09/06/25. Instructions: Resume on 09/07/25. Previous Rx's ?Medication ?Instructions ?Recorded tramadol 50 mg tablet 25 mg (1/2 x 50 mg) PO BID pain 05/25/25 #14 tabs tramadol 50 mg tablet 50 mg PO Q6H PRN pain #20 tabs 09/06/25 oxycodone 5 mg tablet 5 mg PO Q6H PRN pain #10 tabs 09/09/25 Allergies Allergy/AdvReac Type Severity Reaction Status Date / Time penicillin V AdvReac Unknown Hives Verified 09/08/25 16:05 Review of Systems Review of Systems: All other systems are reviewed and are negative Constitutional: Reports as per HPI and Reports no additional constitutional complaints Eyes: Reports as per HPI and Reports no additional eye complaints Reports system reviewed and no additional complaints, except as documented Cardiovascular: Reports as per HPI and Reports no additional cardiovascular complaints Respiratory: Reports as per HPI and Reports no additional respiratory complaints Gastrointestinal: Reports as per HPI and Reports no additional gastrointestinal complaints Genitourinary: Reports no additional female genitourinary complaints Musculoskeletal: Reports no additional musculoskeletal complaints Skin/Breast: Reports system reviewed and no additional complaints, except as docu Psychiatric: Reports no additional psychiatric complaints Endocrine: Reports no additional endocrine complaints Hematologic/Lymphatic: Reports no additional hematologic/lymphatic complaints Allergic/Immunologic: Reports no additional allergic/immunologic complaints Reports system reviewed and no additional complaints, except as documented and Reports Abnormal speech present [facility] Past Medical History Medical History GERD (gastroesophageal reflux disease) PVD (peripheral vascular disease) Raynauds disease HLD (hyperlipidemia) HTN (hypertension) Surgical History Hx of bilateral cataract extraction (~2011) History of carpal tunnel release Hx of colonoscopy (~2008) Hx of hysterectomy (~1984) Hx of repair of rotator cuff (~1984) Social History Social History Are you a primary acute care assistant to a significant other at home: No Do you presently have visiting nurse or other home services: No (adult children nearby) Alcohol intake: never Comment: uses cane at times Patient Tobacco Use Status: Never used Tobacco Smoked in Last 30 Days: No e-Cigarette/Vaping Use: Never Used Use of substances other than those prescribed or required for medical reasons: No Advance Directives: No Advance Directives Information Provided: No Do you have a plan to hurt others: No Plan Current occupational status: retired 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 Physical Exam ED Vital Signs: Vital Signs - 24 hr 09/08/25 16:04 09/08/25 16:32 09/08/25 20:19 Temperature 97.3 F 97.8 F Pulse Rate 66 63 Respiratory Rate 15 16 14 Blood Pressure 198/81 H 179/107 H Pulse Oximetry 100 97 Oxygen Delivery Method Room Air Room Air 09/08/25 22:07 09/08/25 22:09 09/08/25 22:40 Temperature Pulse Rate 61 Respiratory Rate 16 16 Blood Pressure 100/58 L Pulse Oximetry 99 Oxygen Delivery Method Room Air 09/08/25 23:09 09/09/25 00:05 09/09/25 01:10 Temperature Pulse Rate 65 63 65 Respiratory Rate 16 14 15 Blood Pressure 116/43 L 116/42 L 118/42 L Pulse Oximetry 97 96 96 Oxygen Delivery Method Room Air Room Air Room Air 09/09/25 02:00 09/09/25 04:00 09/09/25 06:00 Temperature Pulse Rate 63 65 62 Respiratory Rate 15 16 15 Blood Pressure 120/46 L 112/49 L 138/50 L Pulse Oximetry 96 97 97 Oxygen Delivery Method Room Air Room Air Room Air 09/09/25 10:27 09/09/25 12:06 Temperature 97.8 F 97.8 F Pulse Rate 59 69 Respiratory Rate 18 18 Blood Pressure 141/59 H 188/72 H Pulse Oximetry 100 98 Oxygen Delivery Method Room Air Room Air BMI result Body Mass Index 17.4 Vital signs have been reviewed and appear to be correct. Blood pressure elevated. Heart rate normal. Respiratory rate normal. Temperature normal. Oxygen saturation normal. Appearance: Alert. Oriented X3. No acute distress. Head: Normal external exam. Normocephalic. Atraumatic. No Dumont signs noted. No raccoon eyes noted Eyes: PERRLA. EOMI. Conjunctiva and sclera normal. Eyelids normal. ENT: TM's Normal. Pharynx normal. Uvula midline. Moist mucous membranes. No trismus noted. No drooling noted. No muffled voice noted. Neck: Normal inspection. Neck supple. FROM. No adenopathy. Thyroid Normal. No meningeal signs. No neck mass noted. CVS: Normal heart rate and rhythm. Heart sound normal. No murmurs noted. Pulses normal throughout. Respiratory: No respiratory distress. Painless inspiration. Breath sounds normal. No wheezes/rales/rhonchi noted. Chest nontender. No accessory muscle usage noted or decreased air movement noted. Abdomen: Soft and nontender. Bowel sounds normal in all 4 quadrants. No distention noted. No organomegaly noted. No visible injury noted. Back: No CVA tenderness. Full range of motion noted. Skin: Skin warm and dry. Normal skin color. Normal skin turgor. No rashes/lesions/lacerations noted. Extremities: No lower extremity edema. Extremities exhibit normal range of motion. Extremities nontender. Neuro: Oriented X 3. Cranial nerve exam: II-XII are grossly intact No motor deficit. No sensory deficit. Reflexes normal. Course Course Course Narrative: This is a Rapid Medical Examination (RME) performed by Mariana Broderick PA-C in triage. Full HPI, ROS, assessment and treatment plan per primary provider in the Main ED. Hx: 89 yo F 3 days s/p L4/L5 laminotomy w/ partial facetectomy and foraminotomy w/ dr. garcia here w/ worsening left lower back pain and pain rad down posterior LLE with associated numbness to LLE. admits to difficulty passing BM secondary to pain. denies bowel/bladder incontinence. PE/vitals: decreased sensation to entire LLE when compared to the right. difficulty standing/ambualting d/t pain. Plan: labs, will defer imaging to primary provider Reevaluation(s) Reevaluation #1: 89-year-old female s/p POD 2. Lumbar diskectomy patient presented with severe low back pain radiating to the left lower extremity. Patient require multiple doses of morphine/Tylenol/Toradol to control her pain, Lower extremity ultrasound is pending. X-ray of the left hip is negative for acute fracture. MRI of lumbar spine will be done in the a.m. Will start physician observation. Signed out to Dr. Sykes. Time: 21:04 Reevaluation #2: 12:32 PM 09/09/2025 (Dr. Cade Avery): Patient is re-evaluated, we will attempt to get in touch with Dr. Garcia to discuss MRI findings, clinically patient is nonfebrile, the incision dressings in place, but there is no drainage, patient has had no neurologic deficits, MRI with some changes likely appropriate postoperative changes but that is to be discussed with surgeon optimally, I think there was a concern for postop seroma and there was likely some collection there, patient has had no neurologic deficits when she is medicated she states she is able to walk. On my MRI review and evaluation and blood work I suspect the MRI changes are quite appropriate for the procedure and not representing infectious etiology s/p L4-5 Laminotomy, Partial facetectomy and foraminotomy with use of microscope. I sent a tiger text to Dr. Garcia with MRI report for review 1:46 PM 09/09/2025 (Dr. Cade Avery): There was no response from Dr. Garcia, I had a shared decision-making with the patient and her daughter regarding MRI findings, her workup, presentation, at the time of my evaluation patient was able to get up sit on the chair across her legs, she did not have any neurologic findings or concerns that there is a postop seroma or pressing on the spinal cord, she has had no fevers to suspect underlying postoperative infectious etiology classically wound infection would be postop day 5-7, patient is going to contact her surgeon on Wednesday after the holidays, with strict return precautions, they agreeable to pain medications and this was the biggest reason for her presentation to the ED and she was provided a walker Medications Administered Discontinued Medications Generic Name Dose Route Start Last Admin Trade Name Julia PRN Reason Stop Dose Admin Fentanyl 50 mcg 09/08/25 22:02 09/08/25 22:09 Fentanyl Citrate/Pf 100 Mcg/2 Ml Vial IVPUSH 09/08/25 22:03 50 mcg ONCE ONE Administration Protocol Gadobutrol 7.5 ml 09/09/25 10:01 09/09/25 10:06 Gadobutrol 7.5 Ml Vial IVPUSH 09/09/25 10:02 4.5 ml ONCE ONE Administration Acetaminophen 1,000 mg in 100 mls @ 400 mls/hr 09/08/25 19:56 09/08/25 20:38 Ofirmev IV 09/08/25 20:10 Infused ONCE ONE Infusion Ketorolac Tromethamine 15 mg 09/08/25 17:15 09/08/25 18:00 Ketorolac Tromethamine 15 Mg/Ml Vial IVPUSH 09/08/25 17:16 15 mg ONCE ONE Administration Melatonin 6 mg 09/08/25 21:47 09/08/25 22:06 Melatonin 3 Mg Tablet PO 09/08/25 21:48 6 mg ONCE ONE Administration Morphine Sulfate 1 mg 09/08/25 17:15 09/08/25 18:00 Morphine Sulfate 2 Mg/Ml Cartridge IVPUSH 09/08/25 17:16 1 mg ONCE ONE Administration Protocol Morphine Sulfate 1 mg 09/08/25 19:56 09/08/25 20:19 Morphine Sulfate 2 Mg/Ml Cartridge IVPUSH 09/08/25 19:57 1 mg ONCE ONE Administration Protocol Oxycodone HCl 5 mg 09/09/25 07:47 09/09/25 08:01 Oxycodone Hcl Immed Release 5 Mg Tablet PO 09/09/25 07:48 5 mg ONCE ONE Administration Oxycodone HCl 10 mg 09/09/25 12:32 09/09/25 13:33 Oxycodone Hcl Er 10 Mg Tab.Er.12h PO 09/09/25 12:33 10 mg ONCE ONE Administration Oxycodone HCl 2.5 mg 09/09/25 12:32 09/09/25 13:34 Oxycodone Hcl Immed Release 5 Mg Tablet PO 09/09/25 12:33 Not Given ONCE ONE Medical Decision Making Differential Diagnosis Differential Diagnoses: The differential diagnosis associated with the presentation includes (Postoperative seroma, postoperative infection, lumbar radiculopathy, DVT, left hip arthritis.) Admission/Observation Consideration of admission/observation: Escalation of care including admission/observation considered Lab Data MDM Lab Attestation statement: I reviewed the patient's lab results. 09/08/25 17:01 09/08/25 17:01 Labs: Lab Results 09/08/25 Range/Units 17:01 WBC 8.9 (4.8-10.8) X10*3/uL RBC 4.14 L (4.20-5.50) X10*6/uL Hgb 11.4 L (12.0-16.0) g/dl Hct 35.3 L (37.0-47.0) % MCV 85.3 (80.0-98.0) fL MCH 27.5 (27.0-33.0) pg MCHC 32.3 (31.0-35.0) g/dl RDW 14.2 (11.0-16.0) % Plt Count 228 (160-400) X10*3/uL MPV 10.8 (9.4-12.3) fL Immature Gran % (Auto) 0.3 (0.0-0.4) % Neut % (Auto) 54.9 (45-73) % Lymph % (Auto) 25.2 (20-40) % [place] % (Auto) 12.6 H (2-11) % Eos % (Auto) 5.4 H (0-4) % Baso % (Auto) 1.6 (0-2) % Lymph # (Auto) 2.2 (1.2-4.9) X10*3/uL [place] # (Auto) 1.1 (0.1-1.2) X10*3/uL Eos # (Auto) 0.5 H (0.0-0.4) X10*3/uL Baso # (Auto) 0.1 (0.0-0.2) X10*3/uL Abs Immat Gran (auto) 0.03 (0.00-0.03) X10*3/uL Absolute Neuts (auto) 4.9 (2.0-8.3) x10*3/uL Absolute Nucleated RBC 0.000 (0.0-0.012) X10*3/uL Nucleated RBC % (auto) 0.0 (0.0-0.2) /100WBC Sodium 138 (135-145) mmol/L Potassium 4.3 (3.3-5.1) mmol/L Chloride 106 (96-108) mmol/L Carbon Dioxide 26 (22-29) mmol/L Anion Gap 10 L (12-20) BUN 29 H (9-16) mg/dL Creatinine 0.84 (0.5-1.4) mg/dL Estim Creat Clear Calc 29.6 Estimated GFR > 60 Random Glucose 93 (60-115) mg/dL Calcium 9.2 (8.4-10.2) mg/dL Magnesium 1.9 (1.6-2.6) mg/dL Total Bilirubin 0.2 (0.0-1.0) mg/dL AST 19 (5-31) U/L ALT 10 (0-31) U/L Alkaline Phosphatase 60 (39-117) U/L Total Protein 6.2 L (6.5-8.0) g/dL Albumin 3.7 (3.5-5.0) g/dL Independent Interpretation I performed an independent interpretation of an: Plain X-Ray (Hip: No acute findings.) Discharge Plan Discharge Clinical Impression: Strain of lumbar region Patient Disposition: Home, Self-Care Additional Instructions: As discussed please use Tylenol 975 mg every 6 hours around the clock nonstop, you can add oxycodone 2.5-5 mg every 4-6 hours for additional pain control, and then tramadol 50 mg but no less than 3 hours after taking oxycodone As discussed loss of bowel or bladder function, numbness in the leg, worsening pain, spiking fevers come back to the ER We had a shared decision-making regarding MRI findings which are most likely very much appropriate in this postop period with no fevers and no blood work or physical exam findings to suspect underlying infection I would like you to speak to his surgeon early next week And if you have any other worries or concerns please do not hesitate to come back to the ER right away . There is soft tissue swelling and enhancement involving the posterior paravertebral soft tissues at L4 and L5 level. There is enhancement of the posterior epidural space at this level with minimal fluid measuring 9 mm as described possibly infectious / inflammatory as well. 2. Mild superior endplate compression deformity of L5 vertebral body with minimal marrow edema was not demonstrated on previous MRI. 3. Suspect type 1 Modic changes L1-L2 level similar to previous study. 4. Multilevel degenerative spondylosis/listhesis the central and foraminal stenosis shows no significant progression of disease. Prescriptions: New oxycodone 5 mg tablet 5 mg PO Q6H PRN (Reason: pain) Qty: 10 0RF Rx Instructions: Partial Fill upon patient request. No Action Lactobacillus rhamnosus GG 10 billion cell Capsule 1 cap PO DAILY naproxen sodium [Aleve] 220 mg Capsule 220 mg PO Q8H PRN (Reason: Pain) calcium carb-D3-mag ox-zinc ox 333 mg-133 unit -133 mg-5 mg Tablet 1 tab PO DAILY Clear Eyes Complete 0.025-0.2-0.5 % Drops 1 drp OPHTHALMIC (EYE) QID PRN (Reason: Eye Irritation) tramadol 50 mg tablet 50 mg PO Q6H PRN (Reason: pain) Qty: 20 0RF valsartan-hydrochlorothiazide 160-12.5 mg tablet 1 tab PO DAILY pantoprazole 40 mg tablet,delayed release (DR/EC) 40 mg PO DAILY amlodipine 5 mg tablet 5 mg PO BID biotin 5,000 mcg tablet,chewable 10,000 mcg PO DAILY vitamin E (dl, acetate) 450 mg (1,000 unit) capsule 450 mg PO QDAY acetaminophen 500 mg capsule 500 mg PO QID PRN (Reason: Pain) tramadol 50 mg tablet 25 mg PO BID Qty: 14 0RF Print Language: Panamanian
--- NOTE | 2025-09-08 16:36 | PC.NURSE ---
Patient presents to ED c/o back pain rated 10/10, with intermittent radiation down left leg. Patient reports it as a Shock Patient had recent surgery on to clean up her vertebrae Patient had no pain until late yesterday, patient has been prescribed tramadol with no effect Denies injury, thinners, sob, fever, chills, Patient hypertensive @ 179/101 but all other VSS and up to date Provider in to see patient Plan of care on going
--- OUTSIDE RECORDS SUMMARY | 2025-09-08 16:45 | XMS_ITS | Encounter Summary ---
Author Organization [facility] Address [address] [place] [address] Phone Care Team Providers Care Control Systems Eng Name Role Phone Hakan Dewitt MD Primary Care Provider [phone] Hakan Dewitt MD Unavailable [phone] Encounter Details Date Type Department Care Team (Late st Contact Info) Description 06/21/2020 Orders Only [facility] Medicine [address] [place] [address] [place] [address] Hakan Dewitt MD [address] [place] [address] [email or web address] Social History Tobacco Use Types Packs/Day Years [...] Description 10/01/2025 10:30 AM EST Office Visit [facility] Rheumatology [address] [place] [address] Geneva Moya MD [address], [address] [place] [address] [email or web address] 10/15/2025 1:30 PM EST Office Visit [facility] [address] [place] [address] Hakan Dewitt MD [address] [place] [address] [email or web address] documented as of this encounter Procedures Procedure [...] documented as of this encounter Care Teams Control Systems Eng Relationship Specialty Start Date End Date Hakan Dewitt MD [address] [place] [address] PCP - General 09/16/17 Hakan Dewitt MD [address] [place] [address] Insurance Assigned Provider 03/04/24 documented as of this encounter Additional Source Comments The information contained in this document represents components of the legal health record. It is not the complete legal health record.[facility]
--- OUTSIDE RECORDS SUMMARY | 2025-09-08 16:45 | XMS_ITS | Clinical Summary ---
Author Organization [facility] Address [address] [place] [address] Care Team Providers Care [employer]ore [employer] Name Role Phone Jayden Reyes MD Primary [...] from 07/06/2018:Stage IA(pT1a, pN0, cM0, G1, ER+, NJ+, HER2-) - Unsigned Cataract 05/27/2018 Hypertension 05/27/2018 [...] Overview: Added automatically from request for surgery [id number] Left displaced femoral neck fracture 03/24/2020 05/08/2020 [...] medical attention Medical Devices Implanted Type Area Technical Expert Device Identifier Shelf Expiration Date Model / Serial / Lot Screw Partial Thread 100mm 16mm 7mm [employer] Josh - [id number] - [id number] Implanted:Qty: 1 on 03/25/2020 by Fabiano Lopez MD at [facility] Left: Hip [employer] 02/14/2028 [id number] / / [id number] Screw Partial Thread 95mm 16mm 7mm [employer] Bon - [id number] - [id number] Implanted:Qty: 1 on 03/25/2020 by Fabiano Lopez MD at [facility] Left: Hip [employer] 10/23/2028 [id number] / / [id number] Screw Partial Thread 105mm 16mm 7mm [employer] Josh - [id number] - [id number] Implanted:Qty: 1 on 03/25/2020 by Fabiano Lopez MD at [facility] Left: Hip [employer] 03/24/2029 [id number] / / [id number] Advance Directives For more information, please contact: [phone] Documents on File Type Date Recorded Patient Preparole Counseling Aide Expl 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 Care Teams B[employer] Relationship Specialty Start Date End Date Jayden Reyes MD PCP - General Internal Medicine 06/17/18
--- OUTSIDE RECORDS SUMMARY | 2025-09-08 16:45 | XMS_ITS | Clinical Summary ---
Author Organization [facility] Address [address] [address] Phone Care Team Providers Care Mixing Tank Operator Name Role Phone Hakan Dewitt MD Primary Care Provider [phone] Hakan Dewitt MD Unavailable [phone] Allergies Active Allergy Reactions Criticality Noted Date [...] (10,000 mcg) tablet once daily. Active calcium carb/D3/magnesium/ zinc (CALCIUM CARB-D3-MAG EOL36-FAEJ) [phone] yb-mxrx-ar-mg Tab Take 1 tablet by mouth daily. Active Lactobacillus rhamnosus GG (PROBIOTIC DIGESTIVE CARE ORAL) Take 1 capsule by mouth daily. Active amLODIPine (NORVASC) 5 MG tabletIndications: Essential hypertension TAKE 1 TABLET(5 MG) BY MOUTH TWICE DAILY 180 tablet 3 4 Active naphazo HCl-hpm-ps 80-Zn sulf (CLEAR EYES COMPLETE) 0.025-0.2-0.5 % Drop Apply 1 drop in each eye to eye 2 (two) times a day as needed. Active valsartan-hydroCHL OROthiazide (DIOVAN-HCT) 160-12.5 mg per tabletIndications: Essential hypertension TAKE 1 TABLET BY MOUTH DAILY 90 tablet 2 5 Active naproxen sodium (ALEVE) 220 MG tablet Take 220 mg by mouth 3 (three) times a day. Active pantoprazole (PROTONIX) 40 MG tabletIndications: Gastroesophageal reflux disease without esophagitis Take 1 tablet (40 mg total) by mouth daily. 90 tablet 3 5 Active traMADoL (ULTRAM) 50 mg tablet Take 25 mg by mouth 2 (two) times a day as needed. 5 08/17/20 25 Discontin ued(No longer taking) traMADoL (ULTRAM) 50 mg tabletIndications: Primary osteoarthritis involving multiple joints 0.5 tab nightly for severe pain 7 tablet 5 08/17/20 25 Discontin ued(No longer taking) pramipexole (MIRAPEX) 0.5 MG tabletIndications: Nocturnal leg cramps TAKE 1 TABLET BY MOUTH EVERY NIGHT AT BEDTIME 90 tablet 3 5 08/17/20 25 Discontin ued(No longer taking) Active Problems Problem Noted Date Diagnosed Date Preop examination 08/17/2025 Assessment & Plan (08/17/2025 11:54 AM EDT): Patient is presenting today for preoperative evaluation for spinal canal surgery on 09/06/[address] Garcia at [facility]. Overall she is doing well, all chronic medical conditions are well-managed. EKG showed sinus rhythm. Will obtain a CBC and CMP. Patient is cleared to move forward with upcoming surgery. AUB-HAS2: 1.6% risk of adverse event RCRI: Low risk ACP: Grade 1, low risk EMAPO: Low risk Thrombocytopenia 04/03/2024 Other insomnia 02/11/2024 Assessment & [...] Dr. Tushar Jaeger can see here at [facility]. Imaging was done at [facility]. Patient counseled about frozen shoulder, to [...] is not adequate we will refer to ART FRAMING MANAGER's for pelvic exam. Hyperuricemia 12/06/2019 Assessment & [...] pain without sciatica 01/04/2018 Essential hypertension 01/04/2018 Assessment & Plan (08/17/2025 11:55 AM EDT): Blood pressure is slightly elevated at today's office visit with the first reading of 142/62 and a second reading at 160/62. Patient does note that this is her baseline for her blood pressure. Discussed that this is suboptimal control and would recommend potentially increasing her blood pressure medications at her next visit with Dr. Dewitt. She does not monitor her blood pressure at home. 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 Provider: Geneva Moya MD Patient: Susie SchraderKenna : 1935 Date: 07/13/2022 Assessment & Plan [...] writing. Provider: Geneva Moya MD Patient: Susie SchraderKenna : 1935 Date: 12/10/2021 Assessment & Plan [...] Problem Noted Date Diagnosed Date Resolved Date [facility] use of alendronate therapy (Fosamax) 07/11/2020 03/03/2023 [...] at least every 3 months as requested. long term care social worker current use of non -steroidal anti-inflammatories (NSAID) [...] Encounters Date Type Department Care Team Description 09/07/2025 Orders Only [facility] Internal Medicine [address] [facility] [place] [address] Alida Martinez MD 09/06/2025 Orders Only [facility] Internal [facility] [address] [place] [address] Alida Martinez MD 08/17/2025 11:51 AM EDT - 08/17/2025 11:59 PM EDT Hospital Encounter [facility] [address] [facility] [place] [address] Ernestina Curiel PA-C Discharge Disposition: Home or Self Care 08/17/2025 11:20 AM EDT Office Visit [facility] [address] [place] [address] Ernestina Curiel PA-C Preop examination (Primary Dx); Essential hypertension 08/10/2025 Telephone [facility] [address] [place] [address] Hakan Dewitt MD Appointment (Pt needs a pre -op appt before surgery date on 09/06/25 no available appts before that date to schedule, please contact and advise with a Pre-op appt, best contact number is [phone] please leave a detailed message if no answer ) 08/10/2025 Telephone [facility] [address] [place] [address] Hakan Dewitt MD Pre-op Visit (1. Type of Anesthesia: unknown//2. Procedure / Surgery Type: Spine/Back//3. Location of Procedure: [facility]//4. Is EKG needed:YES/NO: yes//5. Is Lab Work needed:YES/NO: yes//6. Procedure Date: 09/06/25//7. Name of Surgeon (First, Last): Dr. Garcia/8. Name of person to contact with Pre-op info, including contact number: n/a/) 07/10/2025 Refill [facility] Internal Medicine [address] [facility] [place] [address] Hakan Dewitt MD Medication Refill from Last 3 Months Immunizations Immunization Administration [...] Sign Reading Time Taken Comments Blood Pressure 160/62 08/17/2025 11:46 AM EDT Pulse 62 05/30/2025 10:38 AM EDT Temperature 36.5 C (97.7 F) 04/10/2025 8:54 AM EDT Respiratory Rate 16 10/09/2024 8:59 AM EST Oxygen Saturation 99% 05/30/2025 10:38 AM EDT Inhaled Oxygen Concentration - - Weight 40.7 kg (89 lb 12.8 oz) 08/17/2025 11:10 AM EDT Height 143.8 cm (4' 8.61 ) 08/17/2025 11:10 AM E DT Body Mass Index 19.7 08/17/2025 11:10 AM EDT Plan of Treatment Upcoming Encounters Date Type Department Care Team (Late st Contact Info) Description 10/01/2025 10:30 AM EST Office Visit [facility] Rheumatology [address] [place] [address] Geneva Moya MD [address] [facility], [address] [place] [address] [email or web address] 10/15/2025 1:30 PM EST Office Visit [facility] Internal Medicine [address] [place] [address] [place] [address] Hakan Dewitt MD [address] [facility] [place] [place] [address] [email or web address] Health Maintenance Due Date Last Done Comments Adult Td,Tdap Booster 1935 RSV VACCINE (1 - 1-dose 75+ series) 2011 ZOSTER VACCINES (2 of 3) 03/12/2015 01/15/2015 INFLUENZA VACCINE (#1) 2025 , 08/24/2023, 08/23/2023, Additional history exists COVID-19 VACCINE ( season) 2025 08/29/2024, 09/03/2023, 09/27/2022, Additional history exists DEPRESSION SCREENING 10/09/2025 10/09/2024 CREATININE LEVEL 08/17/2026 08/17/2025, , 10/09/2024, Additional history exists POTASSIUM LEVEL 08/17/2026 08/17/2025, 03/29, 10/09/2024, Additional history exists PNEUMOCOCCAL VACCINES (50+ years) [...] Procedure Name Priority Date/Time Associated Diagnosis Comments OUTSIDE IMAGING Routine 09/06/2025 2:30 PM EDT OUTSIDE IMAGING Routine 09/06/2025 8:09 AM EDT CBC AND DIFFERENTIAL Routine 08/17/2025 11:51 AM EDT Preop examination COMPREHENSIVE METABOLIC PANEL Routine 08/17/2025 11:51 AM EDT Preop examination BD DXA AXIAL (SPINE) WITH HIP Routine 06/16/2021 10:27 AM EDT Osteopenia [facility] use of alendronate therapy (Fosamax) from Last 3 Months or Most Recently Relevant to Health Maintenance Results * Outside Imaging Report Only (09/06/2025 2:30 PM EDT) us Historical Provider IMG XR CHEST Final Res ult * Outside Imaging Report Only (09/06/2025 8:09 AM EDT) us Historical Provider IMG XR CHEST Final Res ult * (ABNORMAL) Comprehensive metabolic panel (08/17/2025 11:51 AM EDT) SODIUM 139 133 - 146 mmol/L [facility] POTASSIUM 4.2 3.3 - 5.1 mmol/L [facility] CHLORIDE 104 96 - 108 mmol/L [facility] CO2 24 21 - 35 mmol/L [facility] BUN 35(H) 6 - 19 mg/dL [facility] CREATININE 0.90 0.5 - 1.5 mg/dL [facility] GLUCOSE 95 70 - 99 mg/dL [facility] ALBUMIN 4.0 3.9 - 4.8 g/dL [facility] TOTAL PROTEIN 6.9 6.5 - 8.0 g/dL [facility] CALCIUM 9.9 8.4 - 10.3 mg/dL [facility] ALKALINE PHOSPHATASE 67 39 - 117 U/L [facility] TOTAL BILIRUBIN 0.3 0.0 - 1.2 mg/dL [facility] AST 22 0 - 37 U/L [facility] ALT 13 0 - 40 U/L [facility] GLOBULIN 2.9 1 - 4.8 g/dL [facility] EGFR 61 >59 mL/min/1.7 3m2 [facility] Comment:Estimated glomerular filtration rate calculated using the CKD-EPI refit equation. ANION GAP 15 10 - 20 mmol/L [facility] Blood 08/17/2025 11:5 1 AM EDT 08/17/2025 11:55 AM EDT us Ernestina Curiel PA-C LAB BLOOD ORDERABLES Final R esult [facility] [address] [place] [address] * (ABNORMAL) CBC and differential (08/17/2025 11:51 AM EDT) WBC 7.52 4.00 - 11.00 K/uL [facility] RBC 4.67 4.00 - 5.20 M/uL [facility] HGB 12.8 12.0 - 16.0 g/dL [facility] HCT 40.8 36.0 - 46.0 % [facility] PLT 262 150 - 450 K/uL [facility] MCV 87.4 80.0 - 100.0 fL [facility] MCH 27.4 27.0 - 31.0 pg [facility] MCHC 31.4(L) 32.0 - 36.0 g/dL [facility] RDW 14.2 11.5 - 14.5 % [facility] MPV 11.9 8.4 - 12.0 fL [facility] NRBC 0.00 0.00 /100 WBCs [facility] ABSOLUTE NRBC 0.00 0.00 K/uL [facility] DIFF METHOD Auto [facility] NEUTS 57.1 48.0 - 76.0 % [facility] LYMPHS 26.2 18.0 - 41.0 % [facility] MONOS 10.2 4.0 - 11.0 % [facility] EOS 4.8 0.0 - 5.0 % [facility] BASOS 1.6(H) 0.0 - 1.5 % [facility] Granulocytes, immature (%) 0.1 0.0 - 0.9 % [facility] ABSOLUTE NEUTS 4.29 1.92 - 7.60 K/uL [facility] ABSOLUTE LYMPHS 1.97 0.72 - 4.10 K/uL [facility] ABSOLUTE MONOS 0.77 0.16 - 1.10 K/uL [facility] ABSOLUTE EOS 0.36 0.00 - 0.50 K/uL [facility] ABSOLUTE BASOS 0.12 0.00 - 0.15 K/uL [facility] Granulocytes, immature 0.01 0.00 - 0.09 K/uL [facility] Blood 08/17/2025 11:5 1 AM EDT 08/17/2025 11:55 AM EDT Ernestina Curiel PA-C LAB BLOOD ORDERABLES Final R esult [facility] [address] [place] [address] * BD DXA AXIAL (SPINE) WITH HIP [...] a total bone mineral density of 0.453 g/fq9lyjz a T- score of -2.2. Z score 1.6 This is in the osteopenia range. Nostatistically significant change from 03/07/2019. The right hip (total) has a total bone mineral density of 0.732 g/mw4ydzl a T- score of -1.7. Z score [...] with osteopenia. No statistically significantchanges from 03/07/2019. Geneva MOORE BD BONE DENSITY DEXA Final Result from Last 3 Months or Most Recently Relevant to Health Maintenance Insurance MEDICARE PART A & B [employer] MEDEX SUPPLEMENT MEDICARE PART A & B [employer] MEDEX SUPPLEMENT MEDICARE PART A & B [facility] MEDEX SUPPLEMENT MEDICARE PART A & B [employer] MED[employer] SUPPLEMENT MEDICARE PART A & B [employer] CROSS MEDEX SUPPLEMENT MEDICARE PART A & B [employer] CROSS MEDEX SUPPLEMENT MEDICARE PART A & B [employer] CROSS MEDEX SUPPLEMENT MEDICARE PART A & B [employer] MEDEX SUPPLEMENT MEDICARE PART A & B [employer] MEDEX SUPPLEMENT Advance Directives For more information, please contact: [phone] (9AM - 5PM Jennifer/[facility], Wednesday-Wednesday) Documents on File Type Date Recorded Patient Threat Monitoring Analyst [place] GLOVER 10/10/2024 10:10 AM * DNR/DNI (No CPR/No Intubation) (Latest Code Status on File) Date Activated Date Inactivated Comments 10/09/2024 10:56 AM Question Answer Comments Code Status Confirmed With: Patient Code Status Communicated To: PCP Code Discussion Comments: pt requests no cpr and no intubation or agressive measures Care Teams Mixing Tank Operator Relationship Specialty Start Date End Date Hakan Dewitt MD [address] [place] [address] PCP - General 09/16/17 Hakan Dewitt MD [address] [place] [address] Insurance Assigned Provider 03/04/24 Additional Source Comments The information contained in this document represents components of the legal health record. It is not the complete legal health record.[facility]
--- OUTSIDE RECORDS SUMMARY | 2025-09-08 16:45 | XMS_ITS | Patient Health Record ---
Author Organization [facility] [place] Address [address] [place] [address] Care Team Providers Care Assistant Manager Bilingual Name Role Phone Hakan Dewitt MD Primary Care Provider Unavaila Ivone Roy Unavailable [phone] Allergies No Known Allergies Reason For Referral [...] Problem Acquired hammer toe of right foot (3838947312493 105) Other hammer toe(s) (acquired), right foot (M20.41) Active confirmed Problem Acquired hammer toe of left foot (1459431287340 103) Other hammer toe(s) (acquired), left foot (M20.42) Active confirmed Problem Plantar wart (20580248) Plantar wart (B07.0) Active confirmed Vital Signs Blood pressure diastolic 65 mm Hg 05/10/2025 Height 4ft9in in 05/10/2025 Blood pressure systolic 130 mm Hg 05/10/2025 Weight 90 lbs 05/10/2025 BMI 19.47 kg/m2 05/10/2025 Procedures Procedure Date Ordered Date Performed Result Body Sit e 26891-Vfnl Destruction, 1-14 12/07/2024 N/A 72292-RRGZVJD NAIL, 6 OR MORE 05/10/2025 N/A 98757-Tamp Destruction, 1-14 05/10/2025 N/A Encounters Encounter Location Date Provider Diagnosis [facility] [address] 12/07/2024 Ivone Black Plantar wart B07.0 a nd Pain in left foot M79.[address] [address] 05/10/2025 Ivone Black Plantar wart B07.0 ; Pain in left foot M79.672 ; Pain in right toe(s) M79.674 ; Onychomycosis B35.1 and Pain in left toe(s) M79.[facility] [address] 08/10/2025 Ivone Black Assessments Encounter Date Diagnosis (ICD Code) Assessment [...] Treatment Pending Test Test Name Order Date 28241-BEFWYAL NAIL, 6 OR MORE 05/10/2025 95306-Ezry Destruction, 1-14 04/14/2021 56889-Ujem Destruction, 1-14 06/16/2021 64762-Xvhf Destruction, 1-14 09/22/2021 53903-Kbtm Destruction, 1-14 05/10/2023 54272-Gexe Destruction, 1-14 05/11/2024 89543-Xopr Destruction, 1-14 12/07/2024 90238-Vuep Destruction, 1-14 05/10/2025 Next Appt Details Provider Name:Ivone Ramirez , 11/15/2025 01:00:00 PM, [address] [place], [address], Insurance Providers Payer Name Payer Address Payer Phone Subscriber Number Group Number Insured Name Patient Relationship to Insured Coverage Start Date Coverage End Date Medicare National [employer]t [employer] [address] [place] [address] [id number] Susie Jeff Self - patient is the insured [employer] [facility] [address] [place] [address] [phone] [id number] Susie Jfef Self - patient is the insured Medical (General) History Medical History History ICD Code Back,Hip,and Knee pain High blood pressure Numbness Osteoporosis raynauds disease Warts Measles Mumps Chicken pox Arthritis Surgical History Surgery Date(Month/Year) hysterectomy 11/1989 carpal tunnel surgery 12/2000 rotator cuff tear repair 12/2007
--- OUTSIDE RECORDS SUMMARY | 2025-09-08 16:45 | XMS_ITS ---
Author Organization [facility] Address [address] [place] [address] Care Team Providers Care Composite Science Teacher Name Role Phone Jayden Reyes MD Primary [...] from 07/06/2018:Stage IA(pT1a, pN0, cM0, G1, ER+, AL+, HER2-) - Unsigned Cataract 05/27/2018 Hypertension 05/27/2018 [...] treatments are documented for this patient in [facility]. Treatments may have been administered [...] Overview: Added automatically from request for surgery [id number] Left displaced femoral neck fracture 03/24/2020 05/08/2020 [...]
--- OUTSIDE RECORDS SUMMARY | 2025-09-08 16:45 | XMS_ITS | Encounter Summary ---
Author Organization [facility] Address [address] [facility] [address] [place] [address] Phone Care Team Providers Care Health Data Analyst Name Role Phone Hakan Dewitt MD Primary Care Provider [phone] Hakan Dewitt MD Unavailable Encounter Details Date Type Department Care Team (Latest Contact Info) Description 08/09/2018 Transcribe Orders [facility] [address] [place], [place] [id number] Hakan Dewitt MD [address] [place] [address] [email or web address] Pure hypercholesterolemia (Primary Dx); Essential hypertension, [...] Description 10/01/2025 10:30 AM EST Office Visit [facility] Rheumatology [address] [place] [address] Geneva Moya MD [address] [facility], [address] [place] [address] [email or web address] 10/15/2025 1:30 PM EST Office Visit [facility] Internal Medicine [address] [place] [address] Hakan Dewitt MD [address] [place] [address] [email or web address] documented as of this encounter Results * (ABNORMAL) Urinalysis (08/09/2018 10:28 AM EDT) COLOR STRAW(A) Yellow [facility] CLARITY Clear [facility] GLUCOSE Negative Negative [facility] BILI Negative Negative [facility] KETONES Negative Negative [facility] SPECIFIC GRAVITY <1.005 1.005 - 1.030 [facility] BLOOD Negative Negative [facility] PH 7.0 5.0 - 8.0 [facility] Protein-UA Negative Negative [facility] NITRITE Negative Negative [facility] Leukocyte esterase, ur 1+(A) Negative [facility] Urine (Urine) 08/09/2018 10: 28 AM EDT 08/09/2018 10:36 AM EDT us Hakan Dewitt MD URINE ORDERABLES Final Result Performing Organization Address City/State/[facility] Co de Phone Number [facility] [address] [place] [address] * (ABNORMAL) Comprehensive metabolic panel (08/09/2018 10:06 AM EDT) SODIUM 137 133 - 146 mmol/L [facility] POTASSIUM 4.5 3.3 - 5.1 mmol/L [facility] CHLORIDE 99 96 - 108 mmol/L [facility] CO2 26 21 - 35 mmol/L [facility] BUN 21(H) 6 - 19 mg/dL [facility] CREATININE 0.80 0.5 - 1.5 mg/dL [facility] GLUCOSE 97 70 - 99 mg/dL [facility] ALBUMIN 4.3 3.9 - 4.8 g/dL [facility] TOTAL PROTEIN 7.4 6.5 - 8.0 g/dL [facility] CALCIUM 10.1 8.4 - 10.3 mg/dL [facility] ALKALINE PHOSPHATASE 48 39 - 117 U/L [facility] TOTAL BILIRUBIN 0.6 0.0 - 1.2 mg/dL [facility] AST 21 0 - 37 U/L [facility] ALT 15 0 - 40 U/L [facility] GLOBULIN 3.1 1 - 4.8 g/dL [facility] EGFR 69 >59 mL/min/1.7 3m2 [facility] Comment:If patient is black, multiply result by 1.159. Estimated glomerular filtration rate calculated using the CKD-EPI equation. ANION GAP 17 10 - 20 mmol/L [facility] Blood 08/09/2018 10:0 6 AM EDT 08/09/2018 10:10 AM EDT us Hakan Dewitt MD LAB BLOOD ORDERABLES Final Re sult [facility] [address] [place] [address] * (ABNORMAL) CBC (08/09/2018 10:06 AM EDT) WBC 7.16 3.40 - 11.20 K/uL [facility] RBC 5.08(H) 3.80 - 4.80 M/uL [facility] HGB 13.9 12.0 - 15.0 g/dL [facility] HCT 42.2 36.0 - 46.0 % [facility] PLT 254 130 - 400 K/uL [facility] MCV 83.1 79.0 - 98.0 fL [facility] MCH 27.4 27.0 - 34.8 pg [facility] MCHC 32.9 31.5 - 36.0 g/dL [facility] RDW 14.5 10.8 - 14.6 % [facility] MPV 11.6 9.4 - 12.4 fl [facility] NRBC 0.00 /100 WBCs [facility] ABSOLUTE NRBC 0.00 K/uL [facility] Blood 08/09/2018 10:0 6 AM EDT 08/09/2018 10:10 AM EDT us Hakan Dewitt MD LAB BLOOD ORDERABLES Final Re sult Performing Organization Address [facility] Co de Phone Number [address] [address] * (ABNORMAL) Lipid panel (08/09/2018 10:06 AM EDT) HDL 87 mg/dL [facility] Comment: Interpretation: Risk Level Females Decreased >55mg/dL Average 50-55 mg/dL Increased <50 mg/dL CHOLESTEROL 250(H) 0 - 240 mg/dL [facility] TRIGLYCERIDES 163(H) 30 - 160 mg/dL [facility] LDL 130(H) 50 - 129 mg/dL [facility] Comment: LDL levels in terms of risk for coronary heart disease: <100 mg/dL: Optimal 100-129 mg/dL: Near or above optimal 130-159 mg/dL: Borderline high 160-189 mg/dL: High >190 mg/dL: Very High CARDIAC RISK RATIO 2.9(L) 3.3 - 4.4 C [facility] Blood 08/09/2018 10:0 6 AM EDT 08/09/2018 10:10 AM EDT us Hakan Dewitt MD LAB BLOOD ORDERABLES Final Re sult Performing Organization Address [facility] Co de Phone Number [address] [address] * (ABNORMAL) 25-OH vitamin D (08/09/2018 10:06 AM EDT) 25 OH VIT D (TOTAL) >60(H) 30 - 60 ng/mL [facility] Blood 08/09/2018 10:0 6 AM EDT 08/09/2018 10:10 AM EDT us Hakan Dewitt MD LAB BLOOD ORDERABLES Final Re sult Performing Organization Address City/[facility]/ZIP Co de Phone Number [address] [address] * TSH (08/09/2018 10:06 AM EDT) TSH 0.84 0.27 - 4.20 uIU/mL [facility] Blood 08/09/2018 10:0 6 AM EDT 08/09/2018 10:10 AM EDT Hakan Dewitt MD LAB BLOOD ORDERABLES Final Re sult Performing Organization Address City/[facility]/ZIP Co de Phone Number [address] [address] documented in this encounter Visit Diagnoses Diagnosis [...] documented as of this encounter Care Teams Health Data Analyst Relationship Specialty Start Date End Date Hakan Dewitt MD [address] [place] [address] PCP - General 09/16/17 Hakan Dewitt MD [address] [place] [address] [email or web address] Insurance Assigned Provider 03/04/24 documented as of this encounter Additional Source Comments The information contained in this document represents components of the legal health record. It is not the complete legal health record.[facility]
--- OUTSIDE RECORDS SUMMARY | 2025-09-08 16:45 | XMS_ITS | Patient Health Record ---
Author Organization [facility] Address [address] [place] [address] Care Team Providers Care Infrastructure Security Architect Name Role Phone Hakan Dewitt MD Primary Care Provider Unavaila Don Hayward Jr Unavailable Reason For Referral No Information Plan Of Treatment No Information
--- OUTSIDE RECORDS SUMMARY | 2025-09-08 16:45 | XMS_ITS | Encounter Summary ---
Author Organization [facility] Address [address] [place] [address] Care Team Providers Care Cloth Tester Name Role Phone Jayden Reyes MD Primary Care Provider Radha sullivan Encounter Details Date Type Department Care Team Description 07/19/2020 Chronic Care Management [address] [address] Shereen Iniguez RN Social History Tobacco Use [...] on filedocumented in this encounter Care Teams Cloth Tester Relationship Specialty Start Date End Date Jayden Reyes MD PCP - General Internal Medicine 06/17/18 documented as of this encounter
--- OUTSIDE RECORDS SUMMARY | 2025-09-08 16:46 | XMS_ITS | Clinical Summary ---
Author Organization [facility] Address [address] [place] [address] Care Team Providers Care Assistant Professor Of Religion Name Role Phone Hakan Dewitt MD Primary Care Provider [phone] Surgical History Surgery Date Site/Laterality Comments BREAST LUMPECTOMY 07/06/2018 Right PROCEDURE:BREAST LUMPECTOMY;COMMENT:10:00, Dr. 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 RUTLEDGE 2014 ESOPHAGOGASTRODUODENOSCOPY 05/15/2017 PROCEDURE:ESOPHAGOGASTROD UODENOSCOPY;COMMENT:Dr. Koenig-food impaction removed, moderate esophageal spasms, narrowing distal third of esophagus, moderate diffuse gastritis BREAST BIOPSY 06/06/2018 Right PROCEDURE:BREAST BIOPSY;COMMENT:10:00, IDC w/DCIS, Dr. Crooks, [facility] COLONOSCOPY 08/17/2015 PROCEDURE:COLONOSCOPY;COM MENT:mild [...] PINNING HIP; Surgeon: Fabiano Lopez MD; Location: [facility] OPERATING RO[facility]; Service: Orthopedics; Laterality: Left; MASTECTOMY PROCEDURE:MASTECTOMY;COMM ENT:partial left do not use left arm Medical History Medical History Date Comments Osteoporosis DX:Osteoporosis Hypothyroidism DX:Hypothyroidis m Urinary incontinence DX:Urinary incontinence COPD (chronic obstructive pu lmonary disease) ([facility] V24, [facility] V28) DX:COPD (chronic o bstructive pulmonary disease) ([facility]);COMMENT:DR. SNIDER, PFTS--02/11, FEV1/FVC 55%, FEV1 54% Arthritis of right shoulder region DX:Arthritis of right shoulder region Dementia ([facility] V24, [facility] V28) DX:Dementia ([facility]);COMMENT:ON ARICEPT--DR. ANA CATES Hypertension DX:Hypertension Allergic [...] DX:S/p lef t hip fracture Breast cancer ([facility] V24, [facility] V28) DX:Breast cancer ([facility]);COMMENT:ER/FL+' HER2 NEGATIVE, S/P LUMPECTOMY AND RADIATION ON ARIMIDEX Breast cancer ([facility] V24, [facility] V28) 06/2018 DX:Breast cancer ([facility]);COMMENT:Rght lumpectomy (prev hx of left breast [...] this topic Medical Devices Implanted Type Area Marionette Performer Device Identifier Shelf Expiration Date Model / Serial / Lot Screw Partial Thread 100mm 16mm 7mm [employer] Josh - [id number] Implanted:Qty: 1 on 03/25/2020 by Fabiano Lopez MD Left: Hip [employer] 02/14/2028 [id number] / / [id number] Screw Partial Thread 95mm 16mm 7mm [employer] Bon - [id number] Implanted:Qty: 1 on 03/25/2020 by Fabiano Lopez MD Left: Hip [employer] 10/23/2028 [id number] / / [id number] Screw Partial Thread 105mm 16mm 7mm [employer] Josh - [id number] Implanted:Qty: 1 on 03/25/2020 by Fabiano Lopez MD Left: Hip [employer] 03/24/2029 [id number] / / [id number] Advance Directives Documents on File Type Date Recorded Patient Wind Turbine Engineer Expl anation Health Care Decision (hx) 03/21/2021 AD ANGELIKA DIRECTIVE Care Teams Assistant Professor Of Religion Relationship Specialty Start Date End Date Hakan Dewitt MD [address] [place] [address] PCP - General Internal Medicine 12/04/21
--- OUTSIDE RECORDS SUMMARY | 2025-09-08 16:46 | XMS_ITS | Encounter Summary ---
Author Organization [facility] [place] Address [address] [facility] [address] [place] [address] Phone Care Team Providers Care Sole Skiver Name Role Phone Hakan Dewitt MD Primary Care Provider [phone] Hakan Dewitt MD Unavailable [phone] Encounter Details Date Type Department Care Team (Late st Contact Info) Description 09/07/2025 Orders Only [facility] Medical [facility] Internal Medicine [address] [place] [address] Provider, MD Alida [address] [place] [address] Social History Tobacco Use Types Packs/Day Years [...] Description 10/01/2025 10:30 AM EST Office Visit [facility] Rheumatology [address] [place] [address] Geneva Moya MD [address] [facility], [address] [place] [address] [email or web address] 10/15/2025 1:30 PM EST Office Visit [facility] Internal Medicine [address] [place] [address] Hakan Dewitt MD [address] [place] [address] documented as of this encounter Procedures Procedure Name Priority Date/Time Associated Diagnosis Comments OUTSIDE IMAGING Routine 09/06/2025 8:09 AM EDT documented in this encounter Results * Outside Imaging Report Only (09/06/2025 8:09 AM EDT) us Historical Provider MD MOORE XR CHEST Final Res ult documented in this encounter Visit Diagnoses Not on filedocumented in this encounter Additional Health Concerns Assessment Noted Time PHQ-2 Depression Total Score: 0 10/09/20 24 9:23 AM EST documented as of this encounter Care Teams Sole Skiver Relationship Specialty Start Date End Date Hakan Dewitt MD [address] [place] [address] PCP - General 09/16/17 Hakan Dewitt MD [address] [place] [address] [email or web address] Insurance Assigned Provider 03/04/24 documented as of this encounter Additional Source Comments The information contained in this document represents components of the legal health record. It is not the complete legal health record.[facility]
--- OUTSIDE RECORDS SUMMARY | 2025-09-08 16:46 | XMS_ITS | Encounter Summary ---
Author Organization [facility] Address [address] [facility] [address] [place] [address] Phone Care Team Providers Care Coffee Supervisor Name Role Phone Hakan Dewitt MD Primary Care Provider [phone] Hakan Dewitt MD Unavailable [phone] Encounter Details Date Type Department Care Team (Late st Contact Info) Description 09/06/2025 Orders Only [facility] Medical [facility] Internal Medicine [address] [place] [address] Provider, MD Alida [address] [place] [address] Social History Tobacco Use Types Packs/Day [...] Description 10/01/2025 10:30 AM EST Office Visit [facility] Rheumatology [address] [place] [address] Geneva Moya MD [address] [facility], [address] [place] [address] [email or web address] 10/15/2025 1:30 PM EST Office Visit [facility] Internal Medicine [address] [place] [address] Hakan Dewitt MD [address] [place] [address] documented as of this encounter Procedures Procedure Name Priority Date/Time Associated Diagnosis Comments OUTSIDE IMAGING Routine 09/06/2025 2:30 PM EDT documented in this encounter Results * Outside Imaging Report Only (09/06/2025 2:30 PM EDT) us Historical Provider MD MOORE XR CHEST Final Res ult documented in this encounter Visit Diagnoses Not on filedocumented in this encounter Additional Health Concerns Assessment Noted Time PHQ-2 Depression Total Score: 0 10/09/20 24 9:23 AM EST documented as of this encounter Care Teams Coffee Supervisor Relationship Specialty Start Date End Date Hakan Dewitt MD [address] [place] [address] PCP - General 09/16/17 Hakan Dewitt MD [address] [place] [address] [email or web address] Insurance Assigned Provider 03/04/24 documented as of this encounter Additional Source Comments The information contained in this document represents components of the legal health record. It is not the complete legal health record.[facility]
[2025-09-08 17:07] LABS: MANUAL DIFF FLAG NO
[2025-09-08 17:08] LABS: Hematocrit 35.3 % (37.0-47.0); Hemoglobin 11.4 g/dl (12.0-16.0); Imm Gran Abs Auto 0.03 X10*3/uL (0.00-0.03); Imm Gran Pct Auto 0.3 % (0.0-0.4); Lymphocytes Absolute Auto 2.2 X10*3/uL (1.2-4.9); Mean Corpuscular HGB Conc 32.3 g/dl (31.0-35.0); Mean Corpuscular Hemoglobin 27.5 pg (27.0-33.0); Mean Corpuscular Volume 85.3 fL (80.0-98.0); NRBC Abs Auto 0.000 X10*3/uL (0.0-0.012); NRBC Pct Auto 0.0 /100WBC (0.0-0.2); Platelet Count 228 X10*3/uL (160-400); Red Blood Count 4.14 X10*6/uL (4.20-5.50); White Blood Count 8.9 X10*3/uL (4.8-10.8)
[2025-09-08 17:22] LABS: Alanine Aminotransferase 10 U/L (0-31); Albumin Level 3.7 g/dL (3.5-5.0); Alkaline Phosphatase 60 U/L (39-117); Anion Gap 10 (12-20); Aspartate Amino Transferase 19 U/L (5-31); Blood Urea Nitrogen 29 mg/dL (9-16); Calcium 9.2 mg/dL (8.4-10.2); Carbon Dioxide 26 mmol/L (22-29); Chloride 106 mmol/L (96-108); Creatinine Clr Calc Pharmacy 29.6; Estimated Glomerular Filt Rate > 60; Magnesium 1.9 mg/dL (1.6-2.6); Potassium 4.3 mmol/L (3.3-5.1); Sodium 138 mmol/L (135-145); Total Protein 6.2 g/dL (6.5-8.0)
--- NOTE | 2025-09-08 19:10 | PC.NURSE ---
this RN assumed care of this pt @[id number]
[2025-09-09] VITALS (8 sets, daily range): BP systolic 112–188; BP diastolic 42–72; PULSE 59–69; RESP 14–18; TEMP 36.6; O2SAT 96–100
--- NOTE | 2025-09-09 01:16 | PC.NURSE ---
pt laying supine in hospital bed, respirations are even and unlabored, pt is currently connected to SPO2 monitor HR 63, RR 14, spo2 94% on RA
--- NOTE | 2025-09-09 07:28 | PC.NURSE ---
ambulatory to BR with walker and standby assist grimace with some movements and pain radiating down LLE. steady on feet. axox3. awaits MRI.
[2025-09-09] MEDS: oxyCODONE HCl Immed Release 5 MG TABLET PO (08:01)
--- NOTE | 2025-09-09 09:34 | PC.NURSE ---
Pt has been at MRI.
[2025-09-09] MEDS: oxyCODONE HCl ER 10 MG TAB.ER.12H PO (13:33)
== END 2025-09-09 14:20 | disposition home or self-care (01) ==
PROVIDERS: Physician Assistant Medical; Emergency Provider Emergency Medicine; PCP Internal Medicine
DX: M54.50 Low back pain, unspecified (principal); R60.0 Localized edema; M25.552 Pain in left hip; Z79.899 Other long term (current) drug therapy
CPT/HCPCS: 36415; 72158; 73502; 80053; 83735; 85025; 93971; 96365; 96375; 96376; 99285; A9585; J0131; J1885; J2270; J3010

== ENCOUNTER → 2025-09-08 17:15 | Outpatient (BNV) | payer MEDICARE, SELFPAY | PROVIDERS: Emergency Provider Emergency Medicine; PCP Internal Medicine; Visit Provider Radiology Diagnostic Radiology | DX: M79.662 Pain in left lower leg (principal); M25.552 Pain in left hip | CPT/HCPCS: 73502; 93971 ==

== ENCOUNTER 2025-10-04 13:58 | Outpatient (AMB) | payer MEDICARE, SELFPAY ==
--- OUTSIDE RECORDS SUMMARY | 2025-09-06 08:00 | XMS_ITS ---
Author Organization [facility] Address [address] [place] [id number] Care Team Providers Care Electric Engine Mechanic Name Role Phone Esdras SPICER, Hakan Primary Care Provider UnavailIvone Cuevas [phone] Encounters Encounter Location Date Provider Diagnosis [address] [address] 09/06/2025 Ivone Ramirez Plan Of Treatment Next Appt Details Provider Name:Ivone Ramirez , 11/15/2025 01:00:00 PM, [address] [place] [address], [id number], Progress Notes * Susie WYNN ADOB:1935 (89 yo F)Acc No.[id number]:09/06/2025 Progress Note Patient: Harry HECTOR Susie Novak Provider: Jasmina Ramirez DPM :1935 A ge:89 Y S ex:Female Date:09/06/2025 Address:[address] [place], [place] [id number] Pcp:Hakan Dewitt MD Subjective: * Chief Complaints: * * Medical History: Objective: * Vitals: Assessment: Plan: * Treatment: * Images: * The named appointment provid er may or may not be the originator of this progress note, and it is not deemed complete until electronically signed by the appointment provider. Sign off status: Pending * Provider: Jasmina Ramirez DPM Date: 1 Generated for Kem garrett/Briana/Susana on: 12/04/2024 05:01 PM EST
--- NOTE | 2025-10-04 14:00 | HO.SPINEOV ---
Intake Visit Reasons: 1st post op Intake Note: Ms. Escobedo is here today for her 1st post op. Composition Weatherboard Applier Required: No Allergies penicillin V Adverse Reaction (Unknown, Verified 09/08/25 16:05) Hives Assessment & Plan Assessment & Plan (1) Lumbar spinal stenosis: Code(s): M48.061 - Spinal stenosis, lumbar region without neurogenic claudication Category: Medical Plan Mrs Dewitt is here in follow-up. She is 3 weeks out from her L4-5 decompression for severe lumbar stenosis. She has been doing beautifully. Her leg pain has gone. She is walking better. She continues to have back pain and has been taking Tylenol 3 times a day to treat that. 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 Her wound is healed up nicely. She has no pain when she walks. She can independently get out of a chair. She is not using a cane or walker. We discussed activity guidelines, restrictions and expectations after lumbar decompression. I will typically see patients back in 6 weeks for final postoperative visit, but if she continues to do this while I told her just to cancel the appointment. Gildardo Garcia MD, PhD [facility] Coding Level of Care Code Global (86249) Diagnoses Lumbar spinal stenosis M48.061
--- OUTSIDE RECORDS SUMMARY | 2025-10-04 17:03 | XMS_ITS | Patient Health Record ---
Author Organization [facility] [place] Address [address] [place] [address] Care Team Providers Care Director Agricultural Services Name Role Phone Hakan Dewitt MD Primary Care Provider Unavaila Ivone Roy Unavailable [phone] Allergies No Known Allergies Reason For Referral [...] Problem Acquired hammer toe of right foot (9218865333443 105) Other hammer toe(s) (acquired), right foot (M20.41) Active confirmed Problem Acquired hammer toe of left foot (6369563609952 103) Other hammer toe(s) (acquired), left foot (M20.42) Active confirmed Problem Plantar wart (26717225) Plantar wart (B07.0) Active confirmed Vital Signs Blood pressure diastolic 65 mm Hg 05/10/2025 Height 4ft9in in 05/10/2025 Blood pressure systolic 130 mm Hg 05/10/2025 Weight 90 lbs 05/10/2025 BMI 19.47 kg/m2 05/10/2025 Procedures Procedure Date Ordered Date Performed Result Body Sit e 22741-Gzld Destruction, 1-14 12/07/2024 N/A 29578-WACYMLC NAIL, 6 OR MORE 05/10/2025 N/A 16909-Apjn Destruction, 1-14 05/10/2025 N/A Encounters Encounter Location Date Provider Diagnosis [facility] [address] 12/07/2024 Ivone Black Plantar wart B07.0 a nd Pain in left foot M79.[address] [address] 05/10/2025 Ivone Black Plantar wart B07.0 ; Pain in left foot M79.672 ; Pain in right toe(s) M79.674 ; Onychomycosis B35.1 and Pain in left toe(s[facility] [address] 08/10/2025 Ivone Black Assessments Encounter Date Diagnosis [...] Treatment Pending Test Test Name Order Date 36258-IKNOSMK NAIL, 6 OR MORE 05/10/2025 45453-Labe Destruction, 1-14 04/14/2021 87866-Eaae Destruction, 1-14 06/16/2021 26183-Lrzx Destruction, 1-14 09/22/2021 77781-Zxmr Destruction, 1-14 05/10/2023 09815-Awxt Destruction, 1-14 05/11/2024 49574-Pymw Destruction, 1-14 12/07/2024 78685-Oeec Destruction, 1-14 05/10/2025 Next Appt Details Provider Name:Ivone Ramirez , 11/15/2025 01:00:00 PM, [address] [place], [address], Insurance Providers Payer Name Payer Address Payer Phone Subscriber Number Group Number Insured Name Patient Relationship to Insured Coverage Start Date Coverage End Date Medicare National [employer] [address] [place] [address] [id number] Susie Jeff Self - patient is the insured [employer] [facility] [address] [place] [address] [id number] Susie Jeff Self - patient is the insured Medical (General) History Medical History History ICD Code Back,Hip,and Knee pain High blood pressure Numbness Osteoporosis raynauds disease Warts Measles Mumps Chicken pox Arthritis Surgical History Surgery Date(Month/Year) hysterectomy 11/1989 carpal tunnel surgery 12/2000 rotator cuff tear repair 12/2007
--- OUTSIDE RECORDS SUMMARY | 2025-10-04 17:03 | XMS_ITS | Patient Health Record ---
Author Organization [facility] Address [address] [place] [address] Care Team Providers Care Caseworker Intake Name Role Phone Hakan Dewitt MD Primary Care Provider Unavaila Don Hayward Jr Unavailable [phone] Reason For Referral No Information Plan Of Treatment No Information
--- OUTSIDE RECORDS SUMMARY | 2025-10-04 17:03 | XMS_ITS ---
Author Organization [facility] Address [address] [place] [address] Care Team Providers Care Director Records Management Name Role Phone Jayden Reyes MD Primary [...] from 07/06/2018:Stage IA(pT1a, pN0, cM0, G1, ER+, WY+, HER2-) - Unsigned Cataract 05/27/2018 Hypertension 05/27/2018 [...] are documented for this patient in [facility]. Treatments may have been administered in [...] Overview: Added automatically from request for surgery [id number] Left displaced femoral neck fracture 03/24/2020 05/08/2020 [...]
--- OUTSIDE RECORDS SUMMARY | 2025-10-04 17:03 | XMS_ITS | Encounter Summary ---
Author Organization [facility] Address [address] [facility] [address] [place] [address] Phone Care Team Providers Care Pollution Control Technician Name Role Phone Hakan Dewitt MD Primary Care Provider [phone] Hakan Dewitt MD Unavailable [phone] Encounter Details Date Type Department Care Team (Late st Contact Info) Description 09/11/2025 Orders Only [facility] Medical [facility] Internal Medicine [address] [place] [address] Provider, MD Alida [address] [place] [address] Social History Tobacco Use Types Packs/Day [...] Care Team (Late st Contact Info) Description 10/15/2025 1:30 PM EST Office Visit [facility] Internal Medicine [address] [place] [address] Hakan Dewitt MD [address] [place] [address] [email or web address] documented as of this encounter Procedures Procedure Name Priority Date/Time Associated Diagnosis Comments OUTSIDE IMAGING Routine 09/08/2025 11:19 AM EDT documented in this encounter Results * Outside Imaging Report Only (09/08/2025 11:19 AM EDT) us Historical Provider IMG XR CHEST Final Res ult documented in this encounter Visit Diagnoses Not on filedocumented in this encounter Additional Health Concerns Assessment Noted Time PHQ-2 Depression Total Score: 0 10/09/20 24 9:23 AM EST documented as of this encounter Care Teams Pollution Control Technician Relationship Specialty Start Date End Date Hakan Dewitt MD [address] [place] [address] PCP - General 09/16/17 Hakan Dewitt MD [address] [place] [address] Insurance Assigned Provider 03/04/24 documented as of this encounter Additional Source Comments The information contained in this document represents components of the legal health record. It is not the complete legal health record.[facility]
--- OUTSIDE RECORDS SUMMARY | 2025-10-04 17:03 | XMS_ITS | Encounter Summary ---
Author Organization [facility] Address [address] [facility] [address] [place] [address] Phone Care Team Providers Care Laborer Tin Can Name Role Phone Hakan Dewitt MD Primary Care Provider [phone] Hakan Dewitt MD Unavailable [phone] Reason for Referral * MRI/CAT Scan - Closed Specialty Diagnoses / Procedures Referred By Geronimo curran Referred To Contact Radiology Procedures Outside MR Spine Report Only [facility] Internal Medicine [address] [place] [address] Phone: tel: fax: Referral ID Status Reason Start Date Expiration Date Visits Re quested Visits Authorized [id number] Closed 09/12/2025 1 1 Encounter Details Date Type Department Care Team (Late st Contact Info) Description 09/12/2025 Orders Only [facility] Internal Medicine [address] [place] [address] Alida Martinez MD [address] [place] [address] Social History Tobacco Use Types Packs/Day [...] Description 10/15/2025 1:30 PM EST Office Visit [facility] Internal Medicine [address] [place] [address] Hakan Dewitt MD [address] [place] [address] [email or web address] documented as of this encounter Procedures Procedure Name Priority Date/Time Associated Diagnosis Comments OUTSIDE IMAGING Routine 09/12/2025 7:37 AM EDT OUTSIDE MR SPINE REPORT ONLY Routine 09/08/2025 8:08 AM EDT documented in this encounter Results * Outside Imaging Report Only (09/12/2025 7:37 AM EDT) us Historical Provider MD MOORE XR CHEST Final Res ult * Outside MR Spine Report Only (09/08/2025 8:08 AM EDT) us Historical Provider MD MOORE MR SPINE Final Res ult documented in this encounter Visit Diagnoses Not on filedocumented in this encounter Additional Health Concerns Assessment Noted Time PHQ-2 Depression Total Score: 0 10/09/20 24 9:23 AM EST documented as of this encounter Care Teams Laborer Tin Can Relationship Specialty Start Date End Date Hakan Dewitt MD [address] [place] [address] PCP - General 09/16/17 Hakan Dewitt MD [address] [place] [address] Insurance Assigned Provider 03/04/24 documented as of this encounter Additional Source Comments The information contained in this document represents components of the legal health record. It is not the complete legal health record.[facility]
--- OUTSIDE RECORDS SUMMARY | 2025-10-04 17:03 | XMS_ITS | Clinical Summary ---
Author Organization [facility] Address [address] [address] Phone Care Team Providers Care Special Effects Specialist Name Role Phone Hakan Dewitt MD Primary Care Provider [phone] Hakan Dewitt MD Unavailable [phone] Allergies Active Allergy Reactions Criticality Noted Date [...] (10,000 mcg) tablet once daily. Active calcium carb/D3/magnesium /zinc (CALCIUM CARB-D3-MAG CWD11-UHPQ) [phone] xo-wibb-ot-mg Tab Take 1 tablet by mouth daily. Active Lactobacillus rhamnosus GG (PROBIOTIC DIGESTIVE CARE ORAL) Take 1 capsule by mouth daily. Active amLODIPine (NORVASC) 5 MG tabletIndications :Essential hypertension TAKE 1 TABLET(5 MG) BY MOUTH TWICE DAILY 180 tablet 3 4 Active naphazo HCl-hpm-ps 80-Zn sulf (CLEAR EYES COMPLETE) 0.025-0.2-0.5 % Drop Apply 1 drop in each eye to eye 2 (two) times a day as needed. Active valsartan-hydroCH LOROthiazide (DIOVAN-HCT) 160-12.5 mg per tabletIndications :Essential hypertension TAKE 1 TABLET BY MOUTH DAILY 90 tablet 2 5 Active naproxen sodium (ALEVE) 220 MG tablet Take 220 mg by mouth 3 (three) times a day. Active pantoprazole (PROTONIX) 40 MG tabletIndications :Gastroesophageal reflux disease without esophagitis Take 1 tablet (40 mg total) by mouth daily. 90 tablet 3 5 Active Active Problems Problem Noted Date Diagnosed Date Preop examination 08/17/2025 Assessment & Plan (08/17/2025 11:54 AM EDT): Patient is presenting today for preoperative evaluation for spinal canal surgery on 09/06/[address] Garcia at [facility]. Overall she is doing well, all [...] Dr. Tushar Jaeger can see here at [facility]. Imaging was done at [facility]. Patient counseled about frozen shoulder, to [...] is not adequate we will refer to CLASSICS PROFESSOR's for pelvic exam. Hyperuricemia 12/06/2019 Assessment & [...] Problem Noted Date Diagnosed Date Resolved Date senior care use of alendronate therapy (Fosamax) 07/11/2020 03/03/2023 [...] at least every 3 months as requested. senior care current use of non -steroidal anti-inflammatories (NSAID) [...] Encounters Date Type Department Care Team Description 09/12/2025 Orders Only [facility] Internal Medicine [address] [facility] [place] [address] Provider, MD Alida 09/11/2025 Orders Only [facility] Internal Medicine [address] [facility] [place] [address] Alida Martinez MD 09/07/2025 Orders Only [facility] Internal [facility] [address] [place] [address] Alida Martinez MD 09/06/2025 Orders Only [facility] Internal Medicine [address] [place] [address] Alida Martinez MD 08/17/2025 11:51 AM EDT - 08/17/2025 11:59 PM EDT Hospital Encounter [facility] [address] [place] [address] Ernestina Curiel PA-C Discharge Disposition: Home or Self Care 08/17/2025 11:20 AM EDT Office Visit [facility] Internal [facility] [address] [facility] [place] [address] Ernestina Curiel PA-C Preop examination (Primary Dx); Essential hypertension 08/10/2025 Telephone [facility] Internal [facility] [address] [facility] [place] [address] Hakan Dewitt MD Appointment (Pt needs a pre -op appt before surgery date on 09/06/25 no available appts before that date to schedule, please contact and advise with a Pre-op appt, best contact number is [phone] please leave a detailed message if no answer ) 08/10/2025 Telephone [facility] Internal [facility] [address] [place] [address] Hakan Dewitt MD Pre-op Visit (1. Type of Anesthesia: unknown//2. Procedure / Surgery Type: Spine/Back//3. Location of Procedure: [facility]//4. Is EKG needed:YES/NO: yes//5. Is Lab Work needed:YES/NO: yes//6. Procedure Date: 09/06/25//7. Name of Surgeon (First, Last): Dr. Garcia//8. Name of person to contact with Pre-op info, including contact number: n/a/) 07/10/2025 Refill [facility] [address] [place] [address] Hakan Dewitt MD Medication Refill from Last [...] Description 10/15/2025 1:30 PM EST Office Visit [facility] Internal Medicine [address] [place] [address] Hakan Dewitt MD [address] [place] [address] [email or web address] Health Maintenance Due Date Last Done Comments [...] IMAGING Routine 09/12/2025 7:37 AM EDT OUTSIDE IMAGING Routine 09/08/2025 11:19 AM EDT OUTSIDE MR SPINE REPORT ONLY Routine 09/08/2025 8:08 AM EDT OUTSIDE IMAGING Routine 09/06/2025 2:30 PM EDT OUTSIDE IMAGING Routine 09/06/2025 8:09 AM EDT CBC AND DIFFERENTIAL Routine 08/17/2025 11:51 AM EDT Preop examination COMPREHENSIVE METABOLIC PANEL (CMP) Routine 08/17/2025 11:51 AM EDT Preop examination BD DXA AXIAL (SPINE) WITH HIP Routine 06/16/2021 10:27 AM EDT Osteopenia long term use of alendronate therapy (Fosamax) from Last 3 Months or Most Recently Relevant to Health Maintenance Results * Outside Imaging Report Only (09/12/2025 7:37 AM EDT) us Historical Provider IMG XR CHEST Final Res ult * Outside Imaging Report Only (09/08/2025 11:19 AM EDT) us Historical Provider MD IMG XR CHEST Final Res ult * Outside MR Spine Report Only (09/08/2025 8:08 AM EDT) us Historical Provider IMG MR SPINE Final Res ult * Outside Imaging Report Only (09/06/2025 2:30 PM EDT) us Historical Provider IMG XR CHEST Final Res ult * Outside Imaging Report Only (09/06/2025 8:09 AM EDT) Historical Provider IMG XR CHEST Final Res ult * (ABNORMAL) Comprehensive metabolic panel (08/17/2025 11:51 AM EDT) SODIUM 139 133 - 146 mmol/L [facility] POTASSIUM 4.2 3.3 - 5.1 mmol/L [facility] CHLORIDE 104 96 - 108 mmol/L [facility] CO2 24 21 - 35 mmol/L [facility] BUN 35(H) 6 - 19 mg/dL [facility] CREATININE 0.90 0.5 - 1.5 mg/dL [facility] GLUCOSE 95 70 - 99 mg/dL [facility] ALBUMIN 4.0 3.9 - 4.8 g/dL [facility] TOTAL PROTEIN 6.9 6.5 - 8.0 g/dL [facility] CALCIUM 9.9 8.4 - 10.3 mg/dL [facility] ALKALINE PHOSPHATASE 67 39 - 117 U/L [facility] TOTAL BILIRUBIN 0.3 0.0 - 1.2 mg/dL [facility] AST 22 0 - 37 U/L [facility] ALT 13 0 - 40 U/L [facility] GLOBULIN 2.9 1 - 4.8 g/dL [facility] EGFR 61 >59 mL/min/1.7 3m2 [facility] Comment:Estimated glomerular filtration rate calculated using the CKD-EPI refit equation. ANION GAP 15 10 - 20 mmol/L [facility] Blood 08/17/2025 11:5 1 AM EDT 08/17/2025 11:55 AM EDT Ernestina Curiel PA-C LAB BLOOD BKR ORDERABLES Fin al Result [address] [address] * (ABNORMAL) CBC and differential (08/17/2025 11:51 AM EDT) WBC 7.52 4.00 - 11.00 K/uL [facility] RBC 4.67 4.00 - 5.20 M/uL [facility] HGB 12.8 12.0 - 16.0 g/dL [facility] HCT 40.8 36.0 - 46.0 % [facility] PLT 262 150 - 450 K/uL [facility] MCV 87.4 80.0 - 100.0 fL [facility] MCH 27.4 27.0 - 31.0 pg [facility] MCHC 31.4(L) 32.0 - 36.0 g/dL [facility] RDW 14.2 11.5 - 14.5 % [facility] MPV 11.9 8.4 - 12.0 fL [facility] NRBC 0.00 0.00 /100 WBCs [facility] ABSOLUTE NRBC 0.00 0.00 K/uL [facility] DIFF METHOD Auto [facility] NEUTS 57.1 48.0 - 76.0 % [facility] LYMPHS 26.2 18.0 - 41.0 % [facility] MONOS 10.2 4.0 - 11.0 % [facility] EOS 4.8 0.0 - 5.0 % [facility] BASOS 1.6(H) 0.0 - 1.5 % [facility] Granulocytes, immature (%) 0.1 0.0 - 0.9 % [facility] ABSOLUTE NEUTS 4.29 1.92 - 7.60 K/uL [facility] ABSOLUTE LYMPHS 1.97 0.72 - 4.10 K/uL [facility] ABSOLUTE MONOS 0.77 0.16 - 1.10 K/uL [facility] ABSOLUTE EOS 0.36 0.00 - 0.50 K/uL [facility] ABSOLUTE BASOS 0.12 0.00 - 0.15 K/uL [facility] Granulocytes, immature 0.01 0.00 - 0.09 K/uL [facility] Blood 08/17/2025 11:5 1 AM EDT 08/17/2025 11:55 AM EDT us Ernestina Curiel PA-C LAB BLOOD BKR ORDERABLES Fin al Result Performing Organization Address City/State/[facility] Co de Phone Number [facility] [address] [place] [address] * BD DXA AXIAL (SPINE) WITH HIP [...] a total bone mineral density of 0.453 g/hi4qcvn a T- score of -2.2. Z score 1.6 This is in the osteopenia range. Nostatistically significant change from 03/07/2019. The right hip (total) has a total bone mineral density of 0.732 g/gw1xfue a T- score of -1.7. Z score [...] osteopenia. No statistically significantchanges from 03/07/2019. [place] JULIENG BD BONE DENSITY DEXA Final Result from Last 3 Months or Most Recently Relevant to Health Maintenance Insurance MEDICARE PART A & B [employer] MED[employer] SUPPLEMENT MEDICARE PART A & B [employer] MED[employer] SUPPLEMENT MEDICARE PART A & B [facility] MEDEX SUPPLEMENT MEDICARE PART A & B [employer] MEDEX SUPPLEMENT MEDICARE PART A & B [employer] MEDEX SUPPLEMENT MEDICARE PART A & B [employer] MEDEX SUPPLEMENT MEDICARE PART A & B [employer] MEDEX SUPPLEMENT MEDICARE PART A & B [employer] MED[employer] SUPPLEMENT MEDICARE PART A & B [employer] MEDEX SUPPLEMENT Advance Directives For more information, please contact: [phone] (9AM - 5PM [facility], Wednesday-Wednesday) Documents on File Type Date Recorded Patient County Adviser [place] JAMILST 10/10/2024 10:10 AM * DNR/DNI (No CPR/No Intubation) (Latest Code Status on File) Date Activated Date Inactivated Comments 10/09/2024 10:56 AM Question Answer Comments Code Status Confirmed With: Patient Code Status Communicated To: PCP Code Discussion Comments: pt requests no cpr and no intubation or agressive measures Care Teams Special Effects Specialist Relationship Specialty Start Date End Date Hakan Dewitt MD [address] [place] [address] [email or web address] PCP - General 09/16/17 Hakan Dewitt MD [address] [place] [address] [email or web address] Insurance Assigned Provider 03/04/24 Additional Source Comments The information contained in this document represents components of the legal health record. It is not the complete legal health record.[facility]
--- OUTSIDE RECORDS SUMMARY | 2025-10-04 17:03 | XMS_ITS | Clinical Summary ---
Author Organization [facility] Address [address] [place] [address] Care Team Providers Care Outcomes Specialist Name Role Phone Hakan Dewitt MD Primary Care Provider [phone] Surgical History Surgery Date Site/Laterality Comments BREAST LUMPECTOMY 07/06/2018 Right PROCEDURE:BREAST LUMPECTOMY;COMMENT:10:00, Dr. 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 RUTLEDGE 2014 ESOPHAGOGASTRODUODENOSCOPY 05/15/2017 PROCEDURE:ESOPHAGOGASTROD UODENOSCOPY;COMMENT:Dr. Koenig-food impaction removed, moderate esophageal spasms, narrowing distal third of esophagus, moderate diffuse gastritis BREAST BIOPSY 06/06/2018 Right PROCEDURE:BREAST BIOPSY;COMMENT:10:00, IDC w/DCIS, Dr. Crooks, [facility] COLONOSCOPY 08/17/2015 PROCEDURE:COLONOSCOPY;COM MENT:mild ichemic [...] PINNING HIP; Surgeon: Fabiano Lopez MD; Location: [facility]; Service: Orthopedics; Laterality: Left; MASTECTOMY PROCEDURE:MASTECTOMY;COMM ENT:partial left do not use left arm Medical History Medical History Date Comments Osteoporosis DX:Osteoporosis Hypothyroidism DX:Hypothyroidis m Urinary incontinence DX:Urinary incontinence COPD (chronic obstructive pu lmonary disease) ([facility], [facility] V28) DX:COPD (chronic o bstructive pulmonary disease) ([facility]);COMMENT:DR. SNIDER, PFTS--02/11, FEV1/FVC 55%, FEV1 54% Arthritis of right shoulder region DX:Arthritis of right shoulder region Dementia ([facility] V24, [facility] V28) DX:Dementia ([facility]);COMMENT:ON ARICEPT--DR. ANA CATES Hypertension DX:Hypertension Allergic rhinitis [...] DX:S/p lef t hip fracture Breast cancer ([facility] V24, [facility] V28) DX:Breast cancer ([facility]);COMMENT:ER/WI+' HER2 NEGATIVE, S/P LUMPECTOMY AND RADIATION ON ARIMIDEX Breast cancer ([facility] V24, [facility] V28) 06/2018 DX:Breast cancer ([facility]);COMMENT:Rght lumpectomy (prev hx of left breast ca) [...] this topic Medical Devices Implanted Type Area Global Compensation Director Device Identifier Shelf Expiration Date Model / Serial / Lot Screw Partial Thread 100mm 16mm 7mm [employer] Josh - [id number] Implanted:Qty: 1 on 03/25/2020 by Fabiano Lopez MD Left: Hip [employer] 02/14/2028 [id number] / / [id number] Screw Partial Thread 95mm 16mm 7mm Conrad [employer]ium Bon - [id number] Implanted:Qty: 1 on 03/25/2020 by Fabiano Lopez MD Left: Hip [employer] 10/23/2028 [id number] / / [id number] Screw Partial Thread 105mm 16mm 7mm [employer] Josh - [id number] Implanted:Qty: 1 on 03/25/2020 by Fabiano Lopez MD Left: Hip [employer] 03/24/2029 [id number] / / [id number] Advance Directives Documents on File Type Date Recorded Patient Clinical Assistant Professor Expl anation Health Care Decision (hx) 03/21/2021 AD ANGELIKA DIRECTIVE Care Teams Outcomes Specialist Relationship Specialty Start Date End Date Hakan Dewitt MD [address] [place] [address] PCP - General Internal Medicine 12/04/21
--- OUTSIDE RECORDS SUMMARY | 2025-10-04 17:03 | XMS_ITS | Encounter Summary ---
Author Organization [facility] Address [address] [place] [address] Care Team Providers Care Pigment Making Supervisor Name Role Phone Jayden Reyes MD Primary Care Provider Radha sullivan Encounter Details Date Type Department Care Team Description 07/19/2020 Chronic Care Management [address] [address] Shereen Iniguez RN Social History Tobacco Use [...] on filedocumented in this encounter Care Teams Pigment Making Supervisor Relationship Specialty Start Date End Date Jayden Reyes MD PCP - General Internal Medicine 06/17/18 documented as of this encounter
--- OUTSIDE RECORDS SUMMARY | 2025-10-04 17:03 | XMS_ITS | Encounter Summary ---
Author Organization [facility] [place] Address [address] [address] Phone Care Team Providers Care Clinic Office Coordinator Name Role Phone Hakan Dewitt MD Primary Care Provider [phone] Hakan Dewitt MD Unavailable [phone] Encounter Details Date Type Department Care Team (Late Contact Info) Description 06/21/2020 Orders Only [address] [place] [address] Hakan Dewitt MD [address] [place], [place] [id number] [email or web address] Social History Tobacco Use Types Packs/Day Years [...] Department Care Team (Late Contact Info) Description 10/15/2025 1:30 PM EST Office Visit [facility] Internal Medicine [address] [place], [place] [id number] Hakan Dewitt MD [address] [place], [place] [phone] (work) [email or web address] documented as of this encounter Procedures Procedure Name Priority Date/Time Associated Diagnosis Comments COMPREHENSIVE METABOLIC PANEL (CMP) Routine 06/13/2020 25-OH VITAMIN D Routine 06/13/2020 URINALYSIS Routine 06/13/2020 CBC Routine 06/13/2020 THYROID STIMULATING HORMONE (TSH) Routine 06/13/2020 LIPID PANEL Routine 06/13/2020 documented in this encounter Results * CBC (06/13/2020) us Hakan Dewitt MD LAB BLOOD BKR ORDERABLES Edit ed Result - Final * Comprehensive metabolic panel (06/13/2020) us Hakan Dewitt MD LAB BLOOD BKR ORDERABLES Edit ed Result - Final * Lipid panel (06/13/2020) us Hakan Dewitt MD LAB BLOOD BKR ORDERABLES Edit ed Result - Final * TSH (06/13/2020) us Hakan Dewitt MD LAB BLOOD BKR ORDERABLES Edit ed Result - Final * Urinalysis (06/13/2020) Urine us Hakan Dewitt MD LAB URINE ORDERABLES Edited R esult - Final * 25-OH vitamin D (06/13/2020) us Hakan Dewitt MD LAB BLOOD BKR ORDERABLES Edit ed Result - Final documented in this encounter Visit Diagnoses Not on filedocumented in this encounter Additional Health Concerns Infection Onset Date Last Indicated Resolved Time CoV-Risk 01/01/2022 01/01/2022 01/02/2022 2:50 PM EST COVID-19 01/01/2022 01/01/2022 01/22/2022 1:21 AM EST Assessment Noted Time PHQ-2 Depression Total Score: 0 03/18/20 20 11:01 AM EDT documented as of this encounter Care Teams Clinic Office Coordinator Relationship Specialty Start Date End Date Hakan Dewitt MD [address] [place] [address] [email or web address] PCP - General 09/16/17 Hakan Dewitt MD [address] [place] [address] Insurance Assigned Provider 03/04/24 documented as of this encounter Additional Source Comments The information contained in this document represents components of the legal health record. It is not the complete legal health record.[facility] [place]
--- OUTSIDE RECORDS SUMMARY | 2025-10-04 17:03 | XMS_ITS | Encounter Summary ---
Author Organization [facility] Address [address] [facility] [address] [place] [address] Phone Care Team Providers Care Waste Hand Name Role Phone Hakan Dewitt MD Primary Care Provider [phone] Hakan Dewitt MD Unavailable [phone] Encounter Details Date Type Department Care Team (Late st Contact Info) Description 09/07/2025 Orders Only [facility] Internal Medicine [address] [place] [address] Provider, MD Alida [address] [place] [address] Social History Tobacco Use Types Packs/Day [...] Description 10/15/2025 1:30 PM EST Office Visit [facility] Internal Medicine [address] [place] [address] Hakan Dewitt MD [address] [place] [address] [email or web address] documented as of this encounter Procedures Procedure [...] documented as of this encounter Care Teams Waste Hand Relationship Specialty Start Date End Date Hakan Dewitt MD [address] [place] [address] PCP - General 09/16/17 Hakan Dewitt MD [address] [place] [address] Insurance Assigned Provider 03/04/24 documented as of this encounter Additional Source Comments The information contained in this document represents components of the legal health record. It is not the complete legal health record.[facility]
--- OUTSIDE RECORDS SUMMARY | 2025-10-04 17:03 | XMS_ITS | Encounter Summary ---
Author Organization [facility] Address [address] [employer] [facility] [address] [place] [address] Phone Care Team Providers Care Video News Editor Name Role Phone Hakan Dewitt MD Primary Care Provider [phone] Hakan Dewitt MD Unavailable [phone] Encounter Details Date Type Department Care Team (Late st Contact Info) Description 09/06/2025 Orders Only [facility] Internal Medicine [address] [place] [address] Provider, MD Alida [address] [place] [address] Social History Tobacco Use Types Packs/Day [...] Description 10/15/2025 1:30 PM EST Office Visit [facility] Internal Medicine [address] [place] [address] Hakan Dewitt MD [address] [place] [address] [email or web address] documented as of this encounter [...] documented as of this encounter Care Teams Video News Editor Relationship Specialty Start Date End Date Hakan Dewitt MD [address] [place] [address] PCP - General 09/16/17 Hakan Dewitt MD [address] [place] [address] Insurance Assigned Provider 03/04/24 documented as of this encounter Additional Source Comments The information contained in this document represents components of the legal health record. It is not the complete legal health record.[facility]
--- OUTSIDE RECORDS SUMMARY | 2025-10-04 17:03 | XMS_ITS | Clinical Summary ---
Author Organization [facility] Address [address] [place] [address] Care Team Providers Care Rn Delivery Name Role Phone Jayden Reyes MD Primary [...] Overview: Added automatically from request for surgery [id number] Left displaced femoral neck fracture 03/24/2020 05/08/2020 [...] medical attention Medical Devices Implanted Type Area Burial Needs Salesperson Device Identifier Shelf Expiration Date Model / Serial / Lot Screw Partial Thread 100mm 16mm 7mm [employer] Josh - [id number] - [id number] Implanted:Qty: 1 on 03/25/2020 by Fabiano Lopez MD at [facility] Left: Hip [employer] 02/14/2028 [id number] / / [id number] Screw Partial Thread 95mm 16mm 7mm [employer] Bon - [id number] - [id number] Implanted:Qty: 1 on 03/25/2020 by Fabiano Lopez MD at [facility] Left: Hip [employer] 10/23/2028 [id number] / / [id number] Screw Partial Thread 105mm 16mm 7mm [employer] Josh - [id number] - [id number] Implanted:Qty: 1 on 03/25/2020 by Fabiano Lopez MD at [facility] Left: Hip [employer] 03/24/2029 [id number] / / [id number] Advance Directives For more information, please contact: [phone] Documents on File Type Date Recorded Patient Dock Superintendent Expl 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 Care Teams Rn Delivery Relationship Specialty Start Date End Date Jayden Reyes MD PCP - General Internal Medicine 06/17/18
--- OUTSIDE RECORDS SUMMARY | 2025-10-04 17:03 | XMS_ITS | Encounter Summary ---
Author Organization [facility] Address [address] [address] Phone Care Team Providers Care Business Intern Name Role Phone Hakan Dewitt MD Primary Care Provider [phone] Hakan Dewitt MD Unavailable [phone] Encounter Details Date Type Department Care Team (Latest Contact Info) Description 08/09/2018 Transcribe Orders [facility] [address] [place] [address] Hakan Dewitt MD [address] [place], [place] [id number] [email or web address] Pure hypercholesterolemia (Primary Dx); Essential hypertension, [...] Description 10/15/2025 1:30 PM EST Office Visit [facility] Internal Medicine [address] [place], [place] [phone] Hakan Dewitt MD [address] [place] [id number] [email or web address] documented as of this encounter Results * (ABNORMAL) Urinalysis (08/09/2018 10:28 AM EDT) COLOR STRAW(A) Yellow [facility] CLARITY Clear [facility] GLUCOSE Negative Negative [facility] BILI Negative Negative [facility] KETONES Negative Negative [facility] SPECIFIC GRAVITY <1.005 1.005 - 1.030 [facility] BLOOD Negative Negative [facility] PH 7.0 5.0 - 8.0 [facility] Protein-UA Negative Negative [facility] NITRITE Negative Negative [facility] Leukocyte esterase, ur 1+(A) Negative [facility] Urine (Urine) 08/09/2018 10: 28 AM EDT 08/09/2018 10:36 AM EDT us Hakan Dewitt MD LAB URINE ORDERABLES Final Re sult [facility] [address] [place] [address] * (ABNORMAL) Comprehensive metabolic panel (08/09/2018 10:06 AM EDT) SODIUM 137 133 - 146 mmol/L [facility] POTASSIUM 4.5 3.3 - 5.1 mmol/L [facility] CHLORIDE 99 96 - 108 mmol/L [facility] CO2 26 21 - 35 mmol/L [facility] BUN 21(H) 6 - 19 mg/dL [facility] CREATININE 0.80 0.5 - 1.5 mg/dL [facility] GLUCOSE 97 70 - 99 mg/dL [facility] ALBUMIN 4.3 3.9 - 4.8 g/dL [facility] TOTAL PROTEIN 7.4 6.5 - 8.0 g/dL [facility] CALCIUM 10.1 8.4 - 10.3 mg/dL [facility] ALKALINE PHOSPHATASE 48 39 - 117 U/L [facility] TOTAL BILIRUBIN 0.6 0.0 - 1.2 mg/dL [facility] AST 21 0 - 37 U/L [facility] ALT 15 0 - 40 U/L [facility] GLOBULIN 3.1 1 - 4.8 g/dL [facility] EGFR 69 >59 mL/min/1.7 3m2 [facility] Comment:If patient is black, multiply result by 1.159. Estimated glomerular filtration rate calculated using the CKD-EPI equation. ANION GAP 17 10 - 20 mmol/L [facility] Blood 08/09/2018 10:0 6 AM EDT 08/09/2018 10:10 AM EDT us Hakan Dewitt MD LAB BLOOD BKR ORDERABLES Rtuhie tello Result [facility] [address] [place] [address] * (ABNORMAL) CBC (08/09/2018 10:06 AM EDT) WBC 7.16 3.40 - 11.20 K/uL [facility] RBC 5.08(H) 3.80 - 4.80 M/uL [facility] HGB 13.9 12.0 - 15.0 g/dL [facility] HCT 42.2 36.0 - 46.0 % [facility] PLT 254 130 - 400 K/uL [facility] MCV 83.1 79.0 - 98.0 fL [facility] MCH 27.4 27.0 - 34.8 pg [facility] MCHC 32.9 31.5 - 36.0 g/dL [facility] RDW 14.5 10.8 - 14.6 % [facility] MPV 11.6 9.4 - 12.4 fl [facility] NRBC 0.00 /100 WBCs [facility] ABSOLUTE NRBC 0.00 K/uL [facility] Blood 08/09/2018 10:0 6 AM EDT 08/09/2018 10:10 AM EDT us Hakan Dewitt MD LAB BLOOD BKR ORDERABLES Ruthie l Result [address] [address] * (ABNORMAL) Lipid panel (08/09/2018 10:06 AM EDT) Pathologist [facility] HDL 87 mg/dL [facility] Comment: Interpretation: Risk Level Females Decreased >55mg/dL Average 50-55 mg/dL Increased <50 mg/dL CHOLESTEROL 250(H) 0 - 240 mg/dL [facility] TRIGLYCERIDES 163(H) 30 - 160 mg/dL [facility] LDL 130(H) 50 - 129 mg/dL [facility] Comment: LDL levels in terms of risk for coronary heart disease: <100 mg/dL: Optimal 100-129 mg/dL: Near or above optimal 130-159 mg/dL: Borderline high 160-189 mg/dL: High >190 mg/dL: Very High CARDIAC RISK RATIO 2.9(L) 3.3 - 4.4 C [facility] Blood 08/09/2018 10:0 6 AM EDT 08/09/2018 10:10 AM EDT us Hakan Dewitt MD LAB BLOOD BKR ORDERABLES Ruthie l Result Performing Organization Address [facility] Co de Phone Number [address] [address] * (ABNORMAL) 25-OH vitamin D (08/09/2018 10:06 AM EDT) Pathologist [facility] 25 OH VIT D (TOTAL) >60(H) 30 - 60 ng/mL [facility] Blood 08/09/2018 10:0 6 AM EDT 08/09/2018 10:10 AM EDT us Hakan Dewitt MD LAB BLOOD BKR ORDERABLES Ruthie l Result [address] [address] * TSH (08/09/2018 10:06 AM EDT) TSH 0.84 0.27 - 4.20 uIU/mL [facility] Blood 08/09/2018 10:0 6 AM EDT 08/09/2018 10:10 AM EDT us Hakan Dewitt MD LAB BLOOD BKR ORDERABLES Ruthie l Result [facility] [address] [place] [address] documented in this encounter Visit Diagnoses Diagnosis [...] documented as of this encounter Care Teams Business Intern Relationship Specialty Start Date End Date Hakan Dewitt MD [address] [place] [address] [email or web address] PCP - General 09/16/17 Hakan Dewitt MD [address] [place] [address] [email or web address] Insurance Assigned Provider 03/04/24 documented as of this encounter Additional Source Comments The information contained in this document represents components of the legal health record. It is not the complete legal health record.[facility]
== END 2025-10-04 14:22 | disposition home or self-care (01) ==
LOC: HO.HNS 13:59
PROVIDERS: PCP Internal Medicine; Visit Provider Physician Assistant
DX: M48.061 Spinal stenosis, lumbar region without neurogenic claudication (principal)
CPT/HCPCS: 99024

== ENCOUNTER → 2025-10-04 13:58 | Outpatient (BNVA) | payer MEDICARE, SELFPAY | PROVIDERS: PCP Internal Medicine; Visit Provider Physician Assistant | DX: M54.9 Dorsalgia, unspecified (principal); M48.061 Spinal stenosis, lumbar region without neurogenic claudication; Z98.890 Other specified postprocedural states | CPT/HCPCS: 99212 ==